=== PATIENT | female | born 1970 | race Caucasian/White ===

== ENCOUNTER 2023-01-06 20:23 | Inpatient (IN) | payer OTHER, SELFPAY ==
[2023-01-06 20:35] VITALS: BP 130/76; PULSE 111; RESP 20; TEMP 36.1; O2SAT 100
--- NOTE | 2023-01-06 22:21 | ED.GENADULT ---
HPI - General Adult General Date Seen: 01/06/23 Chief complaint: Urogenital Problems, Female Stated complaint: uti says she can't urinate Time Seen by Provider: 01/06/23 20:24 Source: patient Mode of arrival: ambulatory Limitations: no limitations History of Present Illness HPI narrative: Patient is a 52-year-old morbidly obese woman with CKD, diabetes, presenting to the emergency department for urinary incontinence. She states she is diagnosed with the UTI about a week ago and started on antibiotic. Since then she has been unable to urinate other than occasional urinary spasms that would cause her to be incontinent. She drove here on her scooter walk up miles away because she is too weak to get off the scooter. She states she normally walks around with her walker while the past couple days he has been feeling weaker and weaker. It took for male staff members to help her to her bed in the emergency department. She denies fevers, chest pain, shortness of breath, abdominal pain. Does states she is having chills. Denies headache. Related Data Allergies Allergy/AdvReac Type Severity Reaction Status Date / Time citalopram [From Celexa] Allergy Severe Verified 01/06/23 20:35 Review of Systems Status of ROS: Reports: 10 or more systems reviewed and unremarkable except as noted in History and below PFSH PFS Social History Smoking Status: Smoker, status unknown Second hand tobacco smoke exposure: No How often do you have a drink containing alcohol: never AUDIT-C Alcohol total score: 0 Non-prescribed substance use: denies use service: No Exam Const: Vital Signs, click to edit/add: Vital Signs - 24 hr 01/06/23 20:35 01/06/23 23:33 01/07/23 00:00 Temperature 97.0 F L Pulse Rate 104 H 102 H Pulse Rate [Left P ulse Oximeter] 111 H Respiratory Rate 20 Blood Pressure [Le ft Forearm] 130/76 Pulse Oximetry 100 97 98 Oxygen Delivery Me thod Room Air Course Vital Signs Vital signs: Initial Vital Signs Temperature 97.0 F L 01/06/23 20:35 Temperature Source Temporal Artery Scan 01/06/23 20:35 Pulse Rate 111 H 01/06/23 20:35 Pulse Rhythm Regular 01/06/23 20:35 Respiratory Rate 20 01/06/23 20:35 Blood Pressure 130/76 01/06/23 20:35 Blood Pressure Mean 94 01/06/23 20:35 Blood Pressure Position Sitting 01/06/23 20:35 Pulse Oximetry 100 01/06/23 20:35 Oxygen Delivery Method Room Air 01/06/23 20:35 Vital Signs Temperature 97.0 F L 01/06/23 20:35 Pulse Rate 111 H 01/06/23 20:35 Respiratory Rate 20 01/06/23 20:35 Blood Pressure 130/76 01/06/23 20:35 Pulse Oximetry 100 01/06/23 20:35 Oxygen Delivery Method Room Air 01/06/23 20:35 Temperature 97.0 F L 01/06/23 20:35 Pulse Rate 102 H 01/07/23 00:00 Respiratory Rate 20 01/06/23 20:35 Blood Pressure 130/76 01/06/23 20:35 Pulse Oximetry 98 01/07/23 00:00 Oxygen Delivery Method Room Air 01/06/23 20:35 Medications Administered Medications: Generic Name Dose Route Start Last Admin Trade Name Freq PRN Reason Stop Dose Admin Sodium Chloride 1,000 mls @ 1,000 mls/hr 01/06/23 23:15 01/06/23 23:37 0.9 % Sodium Chloride 1000 Ml IV 01/07/23 00:14 1,000 mls/hr .Q1H YAKELIN Administration Medical Decision Making MDM Narrative Medical decision making narrative: Patient is a 52-year-old female presenting to emergency department for urinary incontinence/retention in weakness. She appears to be having chills and she is tachycardic 0111. There is some concern for sepsis so I septic workup was ordered. This includes CBC, CMP, urinalysis, EKG, lactate, blood cultures, troponin. I was concerned about the patient's weakness due to only people talk to get her into the bed but when family arrived they state she has been functioning normally at home and she is able to get into her scooter the same as always. The reason she did not get in the Stefany come here is because her is not available and she is not believe her sister not strong enough to help her. They state they feel comfortable with her at home at this time. Lab work returned with a white count of 25, lactic acid 2.1 and creatinine of 2.8. Neutrophils are quite elevated 22.6. Reviewing her lab work from [facility] it shows on 10/01/2022 she had a creatinine of 1.87 white blood cell count 9.2. She so she currently has an acute kidney injury on top of her chronic kidney disease. This also concerned she could have infection concerning this large elevation in her white blood cell count. Urinalysis shows no signs of infection at this time and she had 3 small amount of output of the Rodriguez. Her skin does not appear to be overly excoriated or red does not really look like cellulitis to me. This patient could be bacteremic and she was given 1 L of normal saline at this time. We will do sepsis protocol for ideal body weight. Chest x-ray was ordered but she is not having any respiratory symptoms at this time. Procalcitonin is also ordered. She denies Zosyn and vancomycin ordered for broad-spectrum antibiotics. Patient is accepted by the [facility] hospitalist. Lab Data Labs: Lab Results 01/06/23 01/06/23 01/06/23 Range/Units 21:14 21:57 22:40 WBC 25.00 H (4.50-11.00) K/uL RBC 3.61 L (4.00-5.20) m/uL Hgb 10.1 L (12.0-16.0) gm/dL Hct 32.8 L (33.0-51.0) % MCV 91 (80-100) fL MCH 28 (26-34) pg MCHC 31 L (32-36) gm/dL RDW Coeff of Padmini 15.8 H (11.5-15.5) % Plt Count 446 H (140-440) K/uL Neut % (Auto) 90.4 H (42.0-72.0) % Lymph % (Auto) 2.3 L (20-44) % Tate % (Auto) 5.1 (0.0-11.0) % Eos % (Auto) 0.2 (0.0-7.0) % Baso % (Auto) 0.1 (0.0-3.0) % Neut # (Auto) 22.60 H (1.7-7.0) K/uL Lymph # (Auto) 0.60 L (0.90-2.90) K/uL Tate # (Auto) 1.30 H (0.00-0.90) K/UL Eos # (Auto) 0.10 (0.00-0.50) K/uL Baso # (Auto) 0.00 (0.00-0.30) K/uL Abs Immat Gran (auto) 0.50 H (0.00-0.30) K/uL Imm/Tot Granulo (auto) 1.9 % Sodium 137 (135-149) mmol/L Potassium 3.4 L (3.6-5.1) mmol/L Chloride 102 (96-114) mmol/L Carbon Dioxide 21 (20-32) mmol/L Anion Gap 14 (7-15) mEq/L BUN 52 H (7-30) mg/dL Creatinine 2.8 H (0.5-1.5) mg/dL Estimated GFR 20 ml/min Glucose 165 H (60-115) mg/dL Lactate 2.1 H (0.5-1.9) mmol/L Calcium 8.0 L (8.4-10.6) mg/dL Total Bilirubin 1.0 (0.1-1.5) mg/dL AST 61 H (12-35) U/L ALT 50 H (4-35) U/L Alkaline Phosphatase 136 (40-150) U/L Total Protein 8.3 (6.0-8.3) g/dL Albumin 3.7 (3.3-5.0) g/dL Procalcitonin (<0.50) ng/mL Urine Color (Yellow) Urine Appearance (Clear) Urine pH (5.0-8.5) Ur Specific [place] (1.000-1.030) Urine Protein (Negative) Urine Glucose (UA) (Negative) Urine Ketones (Negative) Urine Blood (Negative) Urine Nitrite (Negative) Urine Bilirubin (Negative) Urine Urobilinogen (0.2-1.0) Ur Leukocyte Esterase (Negative) Urine RBC (0-2) Urine WBC (0-5) Ur Squamous Epith Cells (None-Few) Urine Bacteria (None) SARS-CoV-2 (PCR) Negative SARS-CoV-2 (Negative) Influenza Type A (PCR) Negative PCR FLU A (Negative) Influenza Type B (PCR) Negative PCR FLU B (Negative) Lab Acknowledgement POC Troponin I 0.00 L (0.01-0.04) ng/ml 01/06/23 01/06/23 01/06/23 Range/Units 22:57 23:42 Unknown WBC (4.50-11.00) K/uL RBC (4.00-5.20) m/uL Hgb (12.0-16.0) gm/dL Hct (33.0-51.0) % MCV (80-100) fL MCH (26-34) pg MCHC (32-36) gm/dL RDW Coeff of Padmini (11.5-15.5) % Plt Count (140-440) K/uL Neut % (Auto) (42.0-72.0) % Lymph % (Auto) (20-44) % Tate % (Auto) (0.0-11.0) % Eos % (Auto) (0.0-7.0) % Baso % (Auto) (0.0-3.0) % Neut # (Auto) (1.7-7.0) K/uL Lymph # (Auto) (0.90-2.90) K/uL Tate # (Auto) (0.00-0.90) K/UL Eos # (Auto) (0.00-0.50) K/uL Baso # (Auto) (0.00-0.30) K/uL Abs Immat Gran (auto) (0.00-0.30) K/uL Imm/Tot Granulo (auto) % Sodium (135-149) mmol/L Potassium (3.6-5.1) mmol/L Chloride (96-114) mmol/L Carbon Dioxide (20-32) mmol/L Anion Gap (7-15) mEq/L BUN (7-30) mg/dL Creatinine (0.5-1.5) mg/dL Estimated GFR ml/min Glucose (60-115) mg/dL Lactate (0.5-1.9) mmol/L Calcium (8.4-10.6) mg/dL Total Bilirubin (0.1-1.5) mg/dL AST (12-35) U/L ALT (4-35) U/L Alkaline Phosphatase (40-150) U/L Total Protein (6.0-8.3) g/dL Albumin (3.3-5.0) g/dL Procalcitonin 0.96 H (<0.50) ng/mL Urine Color Yellow (Yellow) Urine Appearance Cloudy A (Clear) Urine pH 5.5 (5.0-8.5) Ur Specific [place] 1.020 (1.000-1.030) Urine Protein 2+ A (Negative) Urine Glucose (UA) Negative (Negative) Urine Ketones Negative (Negative) Urine Blood 2+ A (Negative) Urine Nitrite Negative (Negative) Urine Bilirubin Negative (Negative) Urine Urobilinogen 1.0 (0.2-1.0) Ur Leukocyte Esterase Negative (Negative) Urine RBC 0-2 (0-2) Urine WBC 0-2 (0-5) Ur Squamous Epith Cells Few (None-Few) Urine Bacteria Few A (None) SARS-CoV-2 (PCR) (Negative) Influenza Type A (PCR) (Negative) Influenza Type B (PCR) (Negative) Lab Acknowledgement Test Added POC Troponin I (0.01-0.04) ng/ml ECG Data Attestation: I personally reviewed and interpreted this ECG as follows: Interpretation: Sinus tachycardia with 107 beats per minute, right axis, normal intervals, no ST or T-wave abnormalities Discharge Plan Discharge Clinical Impression: RIOS (acute kidney injury), Neutrophilic leukocytosis Patient Disposition: Admitted As Observation Discharge Location: [facility] Condition: Stable
[2023-01-06 22:39] LABS: PCR FLU A Negative PCR FLU A (Negative); PCR FLU B Negative PCR FLU B (Negative)
[2023-01-06 22:40] LABS: SARS PCR* Negative SARS-CoV-2 (Negative)
[2023-01-06 22:58] LABS: Lactate* 2.1 mmol/L (0.5-1.9)
[2023-01-06 22:59] LABS: Basophils Percent Auto 0.1 % (0.0-3.0); Eosinophils Percent Auto 0.2 % (0.0-7.0); Hematocrit 32.8 % (33.0-51.0); Hemoglobin* 10.1 gm/dL (12.0-16.0); Immature Granulocytes Pct Auto 1.9 %; Lymphocytes Percent Auto 2.3 % (20-44); Mean Corpuscular HGB Conc 31 gm/dL (32-36); Mean Corpuscular Hemoglobin 28 pg (26-34); Mean Corpuscular Volume 91 fL (80-100); Monocytes Percent Auto 5.1 % (0.0-11.0); Neutrophils Percent Auto 90.4 % (42.0-72.0); Platelet Count* 446 K/uL (140-440); RDW Coefficient of Variation % 15.8 % (11.5-15.5); Red Blood Count 3.61 m/uL (4.00-5.20)
[2023-01-06 23:01] LABS: Slide Review Reflex No
[2023-01-06 23:05] LABS: Appearance Urine Cloudy (Clear); Bilirubin Urine Negative (Negative); Blood Urine 2+ (Negative); Color Urine Yellow (Yellow); Glucose Urine Negative (Negative); Ketones Urine Negative (Negative); Leukocyte Esterase Urine Negative (Negative); Nitrite Urine Negative (Negative); Protein Urine 2+ (Negative); pH Urine 5.5 (5.0-8.5)
[2023-01-06 23:14] LABS: Albumin* 3.7 g/dL (3.3-5.0); Chloride* 102 mmol/L (96-114); Sodium* 137 mmol/L (135-149)
[2023-01-06 23:15] LABS: Potassium* 3.4 mmol/L (3.6-5.1)
[2023-01-06 23:17] LABS: Alanine Aminotransferase* 50 U/L (4-35); Alkaline Phosphatase* 136 U/L (40-150); Anion Gap 14 mEq/L (7-15); Aspartate Amino Transferase* 61 U/L (12-35); Blood Urea Nitrogen* 52 mg/dL (7-30); Carbon Dioxide* 21 mmol/L (20-32); Creatinine* 2.8 mg/dL (0.5-1.5); Estimated Glomerular Filt Rate 20 ml/min; Glucose* 165 mg/dL (60-115); Total Protein* 8.3 g/dL (6.0-8.3)
[2023-01-06 23:17] LABS: Bacteria Urine Few; RBC Urine 0-2 (0-2); Squamous Epithelial Cell Urine Few (None-Few); WBC Urine 0-2 (0-5)
[2023-01-06 23:33] VITALS: PULSE 104; O2SAT 97
--- NOTE | 2023-01-06 23:33 | CRLHL7_ITS ---
For Patients: As a result of the Cures Act, medical imaging exams and procedure reports are released immediately into your electronic medical record. You may view this report before your referring provider. If you have questions, please contact your health care provider. INDICATION: Leukocytosis and tachycardia. COMPARISON: None. FINDINGS/IMPRESSION: Semi-upright portable AP chest radiographs. Evaluation is limited by shallow inspiration, large body habitus, and portable AP technique. Lungs appear grossly clear and no definite pulmonary consolidation or other acute intrathoracic abnormalities are seen. No apparent pleural effusions. Likely normal heart size, allowing for AP technique. No acute osseous findings. Dictated by Jacob Medina MD @ 01/07/2023 12:51:28 AM Dictated by: Jacob Medina MD @ 01/07/2023 00:51:52 (Electronically Signed)
[2023-01-06] MEDS: 0.9 % SODIUM CHLORIDE 1000 ml 1,000 ML IV (23:37)
[2023-01-07] VITALS (7 sets, daily range): BP systolic 99–157; BP diastolic 48–56; PULSE 80–102; RESP 16–26; TEMP 36–36.6; O2SAT 91–98; BMI 95.5
[2023-01-07 00:10] LABS: Procalcitonin* 0.96 ng/mL (<0.50)
[2023-01-07 00:26] LABS: C Reactive Protein* 24.1 mg/dL (0.5-1.0)
[2023-01-07] MEDS: PIPERACILLIN/TAZOBACTAM 3.375 GM in 0.9 % SODIUM CHLORIDE Mini-bag 100 ML IVPB ×4 (00:35→17:58)
--- NOTE | 2023-01-07 03:20 | W.PM.THH&P_ITS ---
Telehealth- H&P: HPI History of Present Illness Date Seen: 01/07/23 Chief complaint: uti says she can't urinate Narrative: Antonina Elizabeth is seen as an Interactive Telehealth visit. Antonina Elizabeth is a 52 year old male who is Seen earlier at [facility] with the assistance of nursing staff. She has been admitted through the emergency room. Her is there for the interview but is not present during the physical exam. Antonina tells me she started having urinary retention and urinary symptoms about 10 to 14 days ago. She ultimately got in touch with her physician and had a UA which showed a urinary tract infection. She was placed on Keflex 500 mg twice daily and continues to take these. She has not been having problems with feeling like she needs to go and then has bladder spasms where she urinates. She states this do not seem to be improving with the antibiotic. She is also becoming increasingly weak. Her family urged her to come in. Patient rolled her scooter approximately 2 miles into the hospital. She was evaluated in the emergency room. There was concern for possible sepsis she was found to have an elevated white count elevated lactic acid. She was treated with broad-spectrum antibiotics in the form of vancomycin and Zosyn. Workup in the emergency room did not Holt 5 is infectious source. Patient's past medical history includes super morbid obesity, history of chronic kidney disease stage III, diabetes. She is now been admitted to the floor for further evaluation and treatment. Patient denies any back pain denies any numbness and tingling in her legs denies any other symptoms. She denies a headache she denies nausea vomiting chest pain shortness of breath cough. She states she has pain in by her buttock area from excoriation from the urine. She otherwise does not have any other complaints. Review of Systems Narrative: A complete review of systems was performed and positive pertinence negatives per HPI [facility] Medical History (Updated 01/07/23 @ 03:01 by Gurinder Blankenship DO) FH: RADHA-BSO (total abdominal hysterectomy and bilateral salpingo-oophorectomy) ?Z84.2 - Family history of other diseases of the genitourinary system (ICD- 10) Uterine cancer ?C55 - Malignant neoplasm of uterus, part unspecified (ICD-10) OKSANA (obstructive sleep apnea) ?G47.33 - Obstructive sleep apnea (adult) (pediatric) (ICD-10) Diabetes ?E11.9 - Type 2 diabetes mellitus without complications (ICD-10) Morbid obesity with body mass index (BMI) greater than or equal to 50 ?E66.01 - Morbid (severe) obesity due to excess calories (ICD-10) Major depression ?F32.9 - Major depressive disorder, single episode, unspecified (ICD-10) Hypothyroid ?E03.9 - Hypothyroidism, unspecified (ICD-10) HTN (hypertension) ?I10 - Essential (primary) hypertension (ICD-10) Endometrial cancer ?C54.1 - Malignant neoplasm of endometrium (ICD-10) CKD (chronic kidney disease) stage 3, GFR 30-59 ml/min ?N18.30 - Chronic kidney disease, stage 3 unspecified (ICD-10) Anxiety ?F41.9 - Anxiety disorder, unspecified (ICD-10) Surgical History (Updated 01/07/23 @ 03:01 by Gurinder Blankenship DO) History of tonsillectomy ?Z90.89 - Acquired absence of other organs (ICD-10) History of cholecystectomy ?Z90.49 - Acquired absence of other specified parts of digestive tract (ICD- 10) Social History Smoking Status: Smoker, status unknown Second hand tobacco smoke exposure: No How often do you have a drink containing alcohol: never AUDIT-C Alcohol total score: 0 Non-prescribed substance use: denies use service: No Meds Home Medications and Allergies Allergies Allergy/AdvReac Type Severity Reaction Status Date / Time citalopram [From Celexa] Allergy Severe Verified 01/06/23 20:35 Exam Narrative Exam Narrative: Physical Exam GENERAL: ?vital signs reviewed, well developed and nourished, in no distress Patient is lying in bed she does not appear to be in acute distress. She answers questions appropriately. HEENT: pupils are equal round and reactive to light, extraocular movements are grossly within normal limits and oral mucosa is moist. NECK: Supple without lymphadenopathy or thyromegaly according to nursing staff examination observation HEART: Regular rate and rhythm without any rubs, murmurs, or gallops. LUNGS: Clear to auscultation bilaterally with good air movement throughout ABDOMEN: Observation from nurse assisted exam, abdomen appears soft, nontender, and nondistended with Positive bowel sounds noted. Abdomen is super morbid obese. Difficult to examine and multiple pulm large skin folds. There does not appear to be any overt cellulitis in her pannus. EXTREMITIES: Strength and sensation is observed to be grossly within normal limits in the upper and lower extremities.? No focal strength deficit is observed. SKIN:? Observed warm and dry with color normal. Patient was examined with the assistance of 3 nurses. Complaining of pain in her buttock area this was evaluated and appeared to show erythema it is hot to touch per nursing. There is skin excoriation in the area. Const Vital Signs, click to edit/add: Vital Signs - 24 hr 01/06/23 20:35 01/06/23 23:33 01/07/23 00:00 Temperature 97.0 F L Pulse Rate 104 H 102 H Pulse Rate [Left Pulse Oximeter] 111 H Respiratory Rate 20 Blood Pressure [Left Forearm] 130/76 Pulse Oximetry 100 97 98 Oxygen Delivery Method Room Air Hospitalist - H&P: Result Labs Labs: Short CBC 01/06/23 Range/Units 22:40 WBC 25.00 H (4.50-11.00) K/uL Hgb 10.1 L (12.0-16.0) gm/dL Hct 32.8 L (33.0-51.0) % Plt Count 446 H (140-440) K/uL BMP 01/06/23 22:40 Sodium 137 Potassium 3.4 L Chloride 102 Carbon Dioxide 21 BUN 52 H Creatinine 2.8 H Glucose 165 H Calcium 8.0 L Liver Function 01/06/23 Range/Units 22:40 Total Bilirubin 1.0 (0.1-1.5) mg/dL AST 61 H (12-35) U/L ALT 50 H (4-35) U/L Alkaline Phosphatase 136 (40-150) U/L Albumin 3.7 (3.3-5.0) g/dL Urine 01/06/23 Range/Units 22:57 Urine Color Yellow (Yellow) Urine Appearance Cloudy A (Clear) Urine pH 5.5 (5.0-8.5) Ur Specific [place] 1.020 (1.000-1.030) Urine Protein 2+ A (Negative) Urine Glucose (UA) Negative (Negative) Assessment and Plan Assessment and plan (1) Sepsis: Status: Acute (2) Urinary incontinence: Status: Acute (3) Morbid obesity with body mass index (BMI) greater than or equal to 50: Status: Acute (4) Anemia: Status: Acute (5) Elevated LFTs: Status: Acute (6) Hypokalemia: Status: Acute (7) OKSANA (obstructive sleep apnea): Status: Acute (8) Diabetes: Status: Acute (9) HTN (hypertension): Status: Acute (10) CKD (chronic kidney disease) stage 3, GFR 30-59 ml/min: Status: Chronic (11) RIOS (acute kidney injury): Status: Acute Plan Sepsis?initial workup did not seem to show a source of sepsis however on physical exam in her buttock area under the skin folds appears to have erythematous warm area which certainly could be a cellulitis very difficult to tell if she has chronic skin changes in the area. Nevertheless I do think with her elevated lactic acid white blood cell count she needs broad-spectrum antibiotics. Agree with Zosyn and vancomycin. These have been ordered sepsis protocol has been ordered. Will have pharmacy dose her vancomycin. Will continue to follow her clinically. Urinary incontinence?this appears to have been going on at least 10 days possibly 2 weeks. Unclear if it is related to infection she appears to be growing a Klebsiella species. Has been treated with cephalexin. For tonight she has a Rodriguez catheter in place she is urinating. Will place her on normal saline at 100 mL/h. If her urinary difficulties continue may benefit from a CT scan of the abdomen and pelvis. Would like to try to hold off to see if her creatinine improves contrast may be needed. Super morbid obesity?patient significant high risk for decompensation and problems secondary to morbid obesity. Certainly has chronic skin changes and this is affecting her health. Encourage exercise weight loss. Anemia?no signs of active bleeding this can be followed up as an outpatient. Elevated LFTs?significance is unclear. Abdomen is not tender on exam. Will plan to recheck hepatic function studies again in the morning if still elevated further workup with either ultrasound versus CT of the abdomen if technically possible. Hypokalemia?will replace per protocol. Obstructive sleep apnea?CPAP as at home. Diabetes?unclear what her home medications are these will need to be clarified with pharmacy. Blood sugar was not markedly elevated. Will place on low level sliding scale insulin. Hypertension?will need to clarify her home medications. Chronic kidney disease?appears to have acute kidney injury as well baseline creatinine appears to be around 1.7 creatinine currently 2.5. Try to avoid nep hrotoxic medications i.e. contrast will continue to follow see how she does DVT prophylaxis will use Lovenox CODE STATUS was discussed on admission she wishes to be a DNR/DNI. This was discussed with her present. Telehealth: Statement Statement Telehealth Visit: Today's History and Physical is provided via interactive telehealth by Gurinder Blankenship DO.? Patient is located at [facility].? Provider is located at [facility].? Nursing staff assisted with the patient's exam. The visit being done today meets criteria for a telehealth visit and the patient or patient?s parent/guardian is aware the visit is a telehealth visit. Camera Start Time: 02:01 Camera End Time: 02:34
[2023-01-07 05:26] LABS: Lactate* 1.2 mmol/L (0.5-1.9)
[2023-01-07 05:27] LABS: Basophils Percent Auto 0.1 % (0.0-3.0); Eosinophils Percent Auto 0.1 % (0.0-7.0); Hematocrit 30.5 % (33.0-51.0); Hemoglobin* 9.4 gm/dL (12.0-16.0); Immature Granulocytes Pct Auto 0.6 %; Lymphocytes Percent Auto 3.4 % (20-44); Mean Corpuscular HGB Conc 31 gm/dL (32-36); Mean Corpuscular Hemoglobin 28 pg (26-34); Mean Corpuscular Volume 90 fL (80-100); Neutrophils Percent Auto 89.8 % (42.0-72.0); Platelet Count* 426 K/uL (140-440); RDW Coefficient of Variation % 15.7 % (11.5-15.5); Red Blood Count 3.39 m/uL (4.00-5.20)
[2023-01-07 05:29] LABS: Slide Review Reflex Yes
[2023-01-07] MEDS: MELATONIN 3 MG TABLET PO ×2 (05:37→21:13)
[2023-01-07] MEDS: ACETAMINOPHEN 325 MG TABLET PO ×3 (05:37→19:02)
[2023-01-07 05:41] LABS: Slide Review Acceptable Review (Acceptable)
[2023-01-07 05:42] LABS: Albumin* 3.3 g/dL (3.3-5.0); Chloride* 103 mmol/L (96-114)
[2023-01-07 05:43] LABS: Chloride* 103 mmol/L (96-114); Potassium* 3.1 mmol/L (3.6-5.1); Sodium* 136 mmol/L (135-149); Sodium* 137 mmol/L (135-149)
[2023-01-07 05:45] LABS: Anion Gap 12 mEq/L (7-15); Aspartate Amino Transferase* 75 U/L (12-35); Bilirubin Direct* 0.7 mg/dL (0.0-0.5); Bilirubin Total* 1.2 mg/dL (0.1-1.5); Carbon Dioxide* 21 mmol/L (20-32); Creatinine* 2.8 mg/dL (0.5-1.5); Est. Creatinine Clearance* 16.88; Estimated Glomerular Filt Rate 20 ml/min; Total Protein* 7.7 g/dL (6.0-8.3)
[2023-01-07 05:46] LABS: Alanine Aminotransferase* 50 U/L (4-35); Alkaline Phosphatase* 138 U/L (40-150); Blood Urea Nitrogen* 48 mg/dL (7-30); Calcium* 7.6 mg/dL (8.4-10.6); Glucose* 190 mg/dL (60-115)
[2023-01-07 05:47] LABS: Anion Gap 13 mEq/L (7-15); Carbon Dioxide* 21 mmol/L (20-32)
[2023-01-07 06:02] LABS: Procalcitonin* 2.41 ng/mL (<0.50)
--- NOTE | 2023-01-07 06:27 | PC.NURSE ---
End of Shift: Pt arrived to Med Surg unit at 0110 via ED admission with chief c/o weakness following outpatient tx for a UTI. WBC elevated. Redness, yeast, and strong odor noted under panus fold. Soiled wash cloth turned brown and sopping wet found in right lower fold, removed and discarded. Skin breakdown and redness noted. Pt reports washes and changes cloths out weekly. RN washed and dried each fold, removed all yeast and tucked dry cloths into them. Pt reported pain 8/10 on buttocks area. Bottom noted to have large area of maceration, warmth and skin breakdown covering bottom. Pt moved to bariatric, therapeutic mattress from 256 to CCU2. Zosyn and vanco IV ordered and administered. Pt reported nausea around 0540, resolved shortly after. Pt has CPAP from home, utilizing at night. Pain rated 7/10 in back, knees and folds. Tylenol administered as well as melatonin for sleep. O2 98% on RA. Pt lives at home with her . at bedside until HS. Rodriguez catheter remains in place, patent and draining. LS CTAB.
[2023-01-07 08:19] LABS: Magnesium* 1.7 mg/dL (1.5-2.6)
[2023-01-07 08:40] LABS: C Reactive Protein* 24.4 mg/dL (0.5-1.0)
[2023-01-07] MEDS: POTASSIUM BICARB 25 MEQ EFFERVESCENT TAB PO ×2 (09:24→11:47)
[2023-01-07] MEDS: 0.9 % SODIUM CHLORIDE 1000 ml 1,000 ML 125 ML IV ×2 (09:25→19:02)
[2023-01-07] MEDS: SODIUM CHLORIDE 0.9 % (FLUSH) 10 ML SYRINGE 5 ML IVF ×2 (09:31→21:13)
--- NOTE | 2023-01-07 13:20 | P.IMPN_ITS ---
Progress Note: A&P Assessment and plan (1) Sepsis: Problem details: - unclear of etiology, possibly skin with panniculitis, sherrie dermatitis, and possible cellulitis - with WBC elevated at 29,000 and CRP at 24, there is still concerned that I may not have yet identified the source of her presentation. Should additional diagnostic studies be required, such as CT scan of chest, abdomen, pelvis, the patient will need to be transferred to a tertiary care facility that is capable of performing this additional diagnostic study on this patient. Our CT scan has a weight limit of 450 lb. Her current weight is 490 lb. - for now we are covering her with IV vancomycin and IV piperacillin with tazobactam. Various cultures are for the time being negative and still pending. Status: Acute (2) Urinary incontinence: Problem details: - reportedly acute, since recent UTI, seemingly caused by bladder spasms. Does use oxybutynin at baseline. UA does not suggest UTI. Status: Acute (3) Morbid obesity with body mass index (BMI) greater than or equal to 50: Problem details: - 01/07/23: wt. 221.7 kg, height 152.4 cm, BMI 95.5 kg/m2 Status: Acute (4) Anemia: Problem details: - 01/07/23: Hg 9.4, with no overt blood loss Status: Acute (5) Elevated LFTs: Problem details: - T Bili nl 1.2, D Bili elev 0.7, AST elev 75, ALT elev 50, Alk phos nl 138. Alb nl 3.3, PT is pending Status: Acute (6) Hypokalemia: Problem details: - stop HCTZ - replace and monitor K+ and Mg++ as warranted for now Status: Acute (7) OKSANA (obstructive sleep apnea): Problem details: - continue with her baseline use of CPAP when asleep Status: Acute (8) Diabetes: Problem details: - ordinarily utilizes only pioglitazone - Hold pioglitazone - SS aspart insulin for now Status: Acute (9) HTN (hypertension): Problem details: - continue losartan - hold HCTZ Status: Acute (10) CKD (chronic kidney disease) stage 3, GFR 30-59 ml/min: Problem details: - current Cr 2.8, e-CrCl 16, eGFR 20 Status: Chronic (11) RIOS (acute kidney injury): Problem details: - current Cr 2.8, e-CrCl 16, eGFR 20 Status: Acute Plan 1. Reviewed impression with patient and her , Piyush. 2. Patient makes it very clear that should she be unable to speak on her own behalf that fills to make healthcare decisions on her behalf. 3. DNR DNI resuscitation status. 4. Reviewed with the patient and her the possibility that should she warrant additional radiographic testing such as CT scan of chest, abdomen, and pelvis, that we may need to consider transfer to another facility. At the moment she states she prefers to stay here however if that is warranted she would be willing to. 5. Continue with plans as specified above. Time Spent With Patient Total time spent: 60 minutes Subjective Date Seen: 01/07/23 Interval history: Hospital day 1. History of present illness: ?Antonina Elizabeth is seen as an Interactive Telehealth visit. Antonina Elizabeth is a 52 year old male who is Seen earlier at [facility] with the assistance of nursing staff. She has been admitted through the emergency room. Her is there for the interview but is not present during the physical exam. Antonina tells me she started having urinary retention and urinary symptoms about 10 to 14 days ago. She ultimately got in touch with her physician and had a UA which showed a urinary tract infection. She was placed on Keflex 500 mg twice daily and continues to take these. She has not been having problems with feeling like she needs to go and then has bladder spasms where she urinates. She states this do not seem to be improving with the antibiotic. She is also becoming increasingly weak. Her family urged her to come in. Patient rolled her scooter approximately 2 miles into the hospital. She was evaluated in the emergency room. There was concern for possible sepsis she was found to have an elevated white count elevated lactic acid. She was treated with broad-spectrum antibiotics in the form of vancomycin and Zosyn. Workup in the emergency room did not Carroll 5 is infectious source. Patient's past medical history includes super morbid obesity, history of chronic kidney disease stage III, diabetes. She is now been admitted to the floor for further evaluation and treatment. Patient denies any back pain denies any numbness and tingling in her legs denies any other symptoms. She denies a headache she denies nausea vomiting chest pain shortness of breath cough. She states she has pain in by her buttock area from excoriation from the urine. She otherwise does not have any other complaints. I visit with patient and her , Piyush, today. Verbal satisfied with current interventions and results. Exam Narrative: Exam Narrative: Examined patient in her hospital room. Patient smells unkempt and there is a strong odor of Sherrie skin infection. Patient is on a bariatric bed with alternating mattress. She has her CPAP machine on and appears comfortable. Vision and hearing appear grossly normal. Alert, oriented to self, place, time, situation. When awake she engages in conversation hesitatingly. Sometimes looks to her for answers. Lungs are clear. Heart tones with regular rhythm. Abdomen is obese otherwise soft and nontender. No rebound or guarding. At the moment it is taking 2-4 people to roller from side to side in order to examine her and clean her. Skin of lower extremities is dry and scaly from chronic changes, with dark discoloration. Abdominal pannus with intertriginous erythema and superficial skin excoriations with lateral aspects bilaterally warm to touch. She appears to have a cellulitis in these areas. Also has superficial skin abrasions a few will under buttock, which patient states is new to her. No focal motor neurologic deficits. Does have generalized weakness in upper and lower extremities. Ordinarily able to pivot transfer at home, not able to do so here at this time. Const: Vital Signs, click to edit/add: Vital Signs - 24 hr 01/06/23 20:35 01/06/23 23:33 01/07/23 00:00 Temperature 97.0 F L Pulse Rate 104 H 102 H Pulse Rate [Left P ulse Oximeter] 111 H Pulse Rate [Left] Respiratory Rate 20 Blood Pressure [Le ft Forearm] 130/76 Blood Pressure [Ri ght Forearm] Blood Pressure [Ri ght Radial Artery] Pulse Oximetry 100 97 98 Oxygen Delivery Me thod Room Air 01/07/23 04:15 01/07/23 04:15 01/07/23 07:28 Temperature 97.0 F L 97.5 F L Pulse Rate Pulse Rate [Left P ulse Oximeter] 98 Pulse Rate [Left] 101 H Respiratory Rate 20 20 26 H Blood Pressure [Le ft Forearm] Blood Pressure [Ri ght Forearm] 109/56 L Blood Pressure [Ri ght Radial Artery] 157/52 H Pulse Oximetry 98 98 97 Oxygen Delivery Me thod Room Air Room Air Room Air 01/07/23 07:28 01/07/23 11:49 Temperature 96.8 F L Pulse Rate Pulse Rate [Left P ulse Oximeter] 98 80 Pulse Rate [Left] Respiratory Rate 26 H 16 Blood Pressure [Le ft Forearm] Blood Pressure [Ri ght Forearm] 104/53 L Blood Pressure [Ri ght Radial Artery] Pulse Oximetry 92 Oxygen Delivery Me thod Room Air Documenting provider has reviewed patient's vital signs: yes Labs Labs: Laboratory Results - last 24 hr 01/06/23 01/06/23 01/06/23 21:14 21:57 22:40 WBC 25.00 H RBC 3.61 L Hgb 10.1 L Hct 32.8 L MCV 91 MCH 28 MCHC 31 L RDW Coeff of Padmini 15.8 H Plt Count 446 H Neut % (Auto) 90.4 H Lymph % (Auto) 2.3 L Aiken % (Auto) 5.1 Eos % (Auto) 0.2 Baso % (Auto) 0.1 Neut # (Auto) 22.60 H Lymph # (Auto) 0.60 L Aiken # (Auto) 1.30 H Eos # (Auto) 0.10 Baso # (Auto) 0.00 Abs Immat Gran (auto) 0.50 H Imm/Tot Granulo (auto) 1.9 Diff Slide Review Sodium 137 Potassium 3.4 L Chloride 102 Carbon Dioxide 21 Anion Gap 14 BUN 52 H Creatinine 2.8 H Estimated Creat Clear Estimated GFR 20 Glucose 165 H Lactate 2.1 H Calcium 8.0 L Magnesium Total Bilirubin 1.0 Direct Bilirubin AST 61 H ALT 50 H Alkaline Phosphatase 136 C-Reactive Protein 24.1 H Total Protein 8.3 Albumin 3.7 Procalcitonin Urine Color Urine Appearance Urine pH Ur Specific [place] Urine Protein Urine Glucose (UA) Urine Ketones Urine Blood Urine Nitrite Urine Bilirubin Urine Urobilinogen Ur Leukocyte Esterase Urine RBC Urine WBC Ur Squamous Epith Cells Urine Bacteria SARS-CoV-2 (PCR) Negative SARS-CoV-2 Influenza Type A (PCR) Negative PCR FLU A Influenza Type B (PCR) Negative PCR FLU B Lab Acknowledgement POC Troponin I 0.00 L 01/06/23 01/06/23 01/06/23 22:57 23:42 Unknown WBC RBC Hgb Hct MCV MCH MCHC RDW Coeff of Padmini Plt Count Neut % (Auto) Lymph % (Auto) Aiken % (Auto) Eos % (Auto) Baso % (Auto) Neut # (Auto) Lymph # (Auto) Aiken # (Auto) Eos # (Auto) Baso # (Auto) Abs Immat Gran (auto) Imm/Tot Granulo (auto) Diff Slide Review Sodium Potassium Chloride Carbon Dioxide Anion Gap BUN Creatinine Estimated Creat Clear Estimated GFR Glucose Lactate Calcium Magnesium Total Bilirubin Direct Bilirubin AST ALT Alkaline Phosphatase C-Reactive Protein Total Protein Albumin Procalcitonin 0.96 H Urine Color Yellow Urine Appearance Cloudy A Urine pH 5.5 Ur Specific [place] 1.020 Urine Protein 2+ A Urine Glucose (UA) Negative Urine Ketones Negative Urine Blood 2+ A Urine Nitrite Negative Urine Bilirubin Negative Urine Urobilinogen 1.0 Ur Leukocyte Esterase Negative Urine RBC 0-2 Urine WBC 0-2 Ur Squamous Epith Cells Few Urine Bacteria Few A SARS-CoV-2 (PCR) Influenza Type A (PCR) Influenza Type B (PCR) Lab Acknowledgement Test Added POC Troponin I 01/07/23 01/07/23 01/07/23 00:05 05:15 05:15 WBC 29.30 H* RBC 3.39 L Hgb 9.4 L Hct 30.5 L MCV 90 MCH 28 MCHC 31 L RDW Coeff of Padmini 15.7 H Plt Count 426 Neut % (Auto) 89.8 H Lymph % (Auto) 3.4 L Aiken % (Auto) 6.0 Eos % (Auto) 0.1 Baso % (Auto) 0.1 Neut # (Auto) 26.30 H Lymph # (Auto) 1.00 Aiken # (Auto) 1.80 H Eos # (Auto) 0.00 Baso # (Auto) 0.00 Abs Immat Gran (auto) 0.20 Imm/Tot Granulo (auto) 0.6 Diff Slide Review Acceptable Review Sodium 136 137 Potassium 3.1 L Chloride Carbon Dioxide Anion Gap BUN Creatinine Estimated Creat Clear Estimated GFR Glucose Lactate Calcium Magnesium Total Bilirubin Direct Bilirubin AST ALT Alkaline Phosphatase C-Reactive Protein Total Protein Albumin Procalcitonin Urine Color Urine Appearance Urine pH Ur Specific [place] Urine Protein Urine Glucose (UA) Urine Ketones Urine Blood Urine Nitrite Urine Bilirubin Urine Urobilinogen Ur Leukocyte Esterase Urine RBC Urine WBC Ur Squamous Epith Cells Urine Bacteria SARS-CoV-2 (PCR) Influenza Type A (PCR) Influenza Type B (PCR) Lab Acknowledgement Test Added POC Troponin I 01/07/23 01/07/23 01/07/23 05:15 05:15 05:15 WBC RBC Hgb Hct MCV MCH MCHC RDW Coeff of Padmini Plt Count Neut % (Auto) Lymph % (Auto) Aiken % (Auto) Eos % (Auto) Baso % (Auto) Neut # (Auto) Lymph # (Auto) Aiken # (Auto) Eos # (Auto) Baso # (Auto) Abs Immat Gran (auto) Imm/Tot Granulo (auto) Diff Slide Review Sodium Potassium 3.1 L Chloride 103 103 Carbon Dioxide 21 21 Anion Gap 12 BUN Creatinine Estimated Creat Clear Estimated GFR Glucose Lactate Calcium Magnesium Total Bilirubin Direct Bilirubin AST ALT Alkaline Phosphatase C-Reactive Protein Total Protein Albumin Procalcitonin Urine Color Urine Appearance Urine pH Ur Specific [place] Urine Protein Urine Glucose (UA) Urine Ketones Urine Blood Urine Nitrite Urine Bilirubin Urine Urobilinogen Ur Leukocyte Esterase Urine RBC Urine WBC Ur Squamous Epith Cells Urine Bacteria SARS-CoV-2 (PCR) Influenza Type A (PCR) Influenza Type B (PCR) Lab Acknowledgement POC Troponin I 01/07/23 01/07/23 05:15 07:50 WBC RBC Hgb Hct MCV MCH MCHC RDW Coeff of Padmini Plt Count Neut % (Auto) Lymph % (Auto) Aiken % (Auto) Eos % (Auto) Baso % (Auto) Neut # (Auto) Lymph # (Auto) Aiken # (Auto) Eos # (Auto) Baso # (Auto) Abs Immat Gran (auto) Imm/Tot Granulo (auto) Diff Slide Review Sodium Potassium Chloride Carbon Dioxide Anion Gap 13 BUN 48 H Creatinine 2.8 H Estimated Creat Clear 16.88 Estimated GFR 20 Glucose 190 H Lactate 1.2 Calcium 7.6 L Magnesium 1.7 Total Bilirubin 1.2 Direct Bilirubin 0.7 H AST 75 H ALT 50 H Alkaline Phosphatase 138 C-Reactive Protein 24.4 H Total Protein 7.7 Albumin 3.3 Procalcitonin 2.41 H Urine Color Urine Appearance Urine pH Ur Specific [place] Urine Protein Urine Glucose (UA) Urine Ketones Urine Blood Urine Nitrite Urine Bilirubin Urine Urobilinogen Ur Leukocyte Esterase Urine RBC Urine WBC Ur Squamous Epith Cells Urine Bacteria SARS-CoV-2 (PCR) Influenza Type A (PCR) Influenza Type B (PCR) Lab Acknowledgement Test Added POC Troponin I
[2023-01-07] MEDS: OMEPRAZOLE 20 MG CAPSULE DR PO (13:38)
[2023-01-07] MEDS: oxyBUTYnin chloride 5 MG TABLET PO ×2 (13:38→21:13)
[2023-01-07] MEDS: ONDANSETRON ODT 4 MG TAB PO (13:40)
[2023-01-07 13:55] LABS: Potassium* 4.9 mmol/L (3.6-5.1)
--- NOTE | 2023-01-07 14:40 | PC.NURSE ---
End of Shift: Patient pleasant and cooperative. Patient vitally stable, lungs clear, BS WNL, IV running NS at 125, kendall intact and draining. Patient denies pain but reports bottom irritation. Tylenol given once and zophran given once for nausea. Pannus fold replaced with towelets. Patient on and off sleeping all morning with cpap on. Patient's visiting with patient. Patient has not eating anything this shift but does drink some water. Blood sugars 167 and 132.
[2023-01-07 15:45] LABS: HCO3 VBG 23 mmol/L (21-28); PCO2 VBG 33 mmHG (40-50); PO2 VBG 62.2 mmHG (25-47); pH VBG 7.441 (7.32-7.43)
[2023-01-07] MEDS: SIMVASTATIN 10 MG TABLET 5 MG PO (18:02)
[2023-01-07] MEDS: ENOXAPARIN 40 MG/0.4 ML INJ SUBCUT (21:13)
[2023-01-07] MEDS: NYSTATIN POWDER 1 APPLIC TOPICAL (21:13)
--- NOTE | 2023-01-07 22:14 | PC.NURSE ---
End of Shift: Patient is alert and orientated... decreased appetite only had cottage cheese for dinner and a popsicle. The patient initially reported no pain.. later in the evening reported 4/10 pain in her back.. PRN Tylenol was given. She was repositioned Q2 or per patient request.. she had a hard time getting comfortable this shift she explained I am wondering why I could be comfortable all day, but not now. I offered pillows for repositioning as well as elevating her legs to relieve pressure off her back. New IV was placed this shift in her R hand. Infusing ABX and normal saline @ 125 throughout the shift. Skin care was completed in her pannus area, crease below her knee, groin and to BLE. She was very sensitive during this as it is reddened and sections have opened sores. With assistance I washed them with soap and dried them thoroughly and applied nystatin as well as inner dry. The remaining inner dry is in her room for future use. Rodriguez remains in place, patent and draining cloudy light fabiano urine. Patient sleeps with CPAP at night.. currently in place. Per the patients request I gave PRN melatonin. R inner LE has scaly dryness/ discoloration washed most of it off but some still remains.. Lotion was also applied to BLE. Was unable to have the patient successfully turn on her side this shift.. she stated she could not do it. Patient had many family members visit this afternoon as well as her . Call light within reach, will make needs known. OPAL FERNÁNDEZ BSN
[2023-01-08] VITALS (8 sets, daily range): BP systolic 95–122; BP diastolic 53–66; PULSE 76–92; RESP 18–20; TEMP 36.4–36.7; O2SAT 91–97; BMI 93.8
[2023-01-08] MEDS: PIPERACILLIN/TAZOBACTAM 3.375 GM in 0.9 % SODIUM CHLORIDE Mini-bag 100 ML IVPB ×4 (00:14→19:30)
[2023-01-08] MEDS: 0.9 % SODIUM CHLORIDE 1000 ml 1,000 ML 125 ML IV (05:21)
--- NOTE | 2023-01-08 06:50 | PC.NURSE ---
Shift note: Pt has been using CPAP throughout the night. Turn and reposition upon request. Rodriguez patent, draining deep fabiano colored urine. Denied pain. Groin area cleaned. Pt had adequate sleep. 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 informed through [facility] and ordered to continue treatment.
[2023-01-08 07:08] LABS: Basophils Percent Auto 0.1 % (0.0-3.0); Eosinophils Percent Auto 0.5 % (0.0-7.0); Hematocrit 29.7 % (33.0-51.0); Hemoglobin* 8.7 gm/dL (12.0-16.0); Immature Granulocytes Pct Auto 1.1 %; Lymphocytes Percent Auto 4.1 % (20-44); Mean Corpuscular HGB Conc 29 gm/dL (32-36); Mean Corpuscular Hemoglobin 27 pg (26-34); Mean Corpuscular Volume 93 fL (80-100); Monocytes Percent Auto 3.6 % (0.0-11.0); Neutrophils Percent Auto 90.6 % (42.0-72.0); RDW Coefficient of Variation % 15.8 % (11.5-15.5); Red Blood Count 3.19 m/uL (4.00-5.20); White Blood Count* 22.61 K/uL (4.50-11.00)
[2023-01-08 07:11] LABS: Slide Review Reflex Yes
[2023-01-08 07:13] LABS: Lactate* 0.9 mmol/L (0.5-1.9)
[2023-01-08 07:40] LABS: Platelet Count* 416 K/uL (140-440); Slide Review Acceptable Review (Acceptable)
[2023-01-08 07:54] LABS: Albumin* 3.1 g/dL (3.3-5.0); Chloride* 105 mmol/L (96-114); Sodium* 138 mmol/L (135-149)
[2023-01-08 07:55] LABS: Potassium* 3.3 mmol/L (3.6-5.1)
[2023-01-08 07:56] LABS: Creatinine* 2.6 mg/dL (0.5-1.5); Est. Creatinine Clearance* 18.18; Estimated Glomerular Filt Rate 22 ml/min
[2023-01-08 07:57] LABS: Alanine Aminotransferase* 38 U/L (4-35); Alkaline Phosphatase* 108 U/L (40-150); Anion Gap 14 mEq/L (7-15); Aspartate Amino Transferase* 44 U/L (12-35); Bilirubin Direct* 0.5 mg/dL (0.0-0.5); Bilirubin Total* 0.9 mg/dL (0.1-1.5); Blood Urea Nitrogen* 46 mg/dL (7-30); Carbon Dioxide* 19 mmol/L (20-32); Glucose* 139 mg/dL (60-115)
[2023-01-08 07:58] LABS: Calcium* 7.5 mg/dL (8.4-10.6); Magnesium* 1.7 mg/dL (1.5-2.6); Phosphorus* 4.1 mg/dL (2.5-4.5)
[2023-01-08 08:08] LABS: NT Pro B Type NatriureticPept* 3160 pg/mL
[2023-01-08] MEDS: PARoxetine 20 MG TABLET 40 MG PO (08:30)
[2023-01-08] MEDS: oxyBUTYnin chloride 5 MG TABLET PO ×3 (08:31→21:27)
[2023-01-08] MEDS: FLUCONAZOLE 100 MG TABLET PO (08:31)
[2023-01-08] MEDS: LEVOTHYROXINE 100 MCG TABLET PO (08:31)
[2023-01-08] MEDS: LOSARTAN POTASSIUM 50 MG TABLET 25 MG PO (08:31)
[2023-01-08] MEDS: SODIUM CHLORIDE 0.9 % (FLUSH) 10 ML SYRINGE 5 ML IVF (08:31)
[2023-01-08] MEDS: NYSTATIN POWDER 1 APPLIC TOPICAL ×2 (08:34→21:27)
[2023-01-08 09:03] LABS: C Reactive Protein* 36.7 mg/dL (0.5-1.0)
[2023-01-08 09:17] LABS: INR 1.51 (0.91-1.10); Prothrombin Time 19.2 Seconds
--- NOTE | 2023-01-08 09:57 | PM.IMPN1 ---
Progress Note: A&P Assessment and plan (1) Sepsis: Problem details: - unclear of etiology, possibly skin with panniculitis, sherrie dermatitis, and possible cellulitis. - with WBC elevated at 29,000 and CRP at 24, there is still concerned that I may not have yet identified the source of her presentation. Should additional diagnostic studies be required, such as CT scan of chest, abdomen, pelvis, the patient will need to be transferred to a tertiary care facility that is capable of performing this additional diagnostic study on this patient. Our CT scan has a weight limit of 450 lb. Her current weight is 490 lb. - for now we are covering her with IV vancomycin and IV piperacillin with tazobactam. Various cultures are for the time being negative and still pending. - 01/08: Leukocytosis down trending. CRP remains elevated. 1 blood culture positive for gram +cocci, 2nd blood culture negative, suspect contamination. UC pending. MRSA negative, vancomycin discontinued. Remains afebrile. IVF rate decreased, plan to discontinue with adequate oral intake and ongoing clinical improvement. Monitor for fluid overload. Continue skin cares, monitor for new or worsening symptoms. Status: Acute (2) Urinary incontinence: Problem details: - reportedly acute, since recent UTI, seemingly caused by bladder spasms. Does use oxybutynin at baseline. UA does not suggest UTI. UC pending. Status: Acute (3) Anemia: Problem details: - 01/07/23: Hg 9.4, with no overt blood loss - downtrending, currently 8.7, still without report of acute bleed. FOBT ordered. Continue to monitor Status: Acute (4) Elevated LFTs: Problem details: - T Bili nl 1.2, D Bili elev 0.7, AST elev 75, ALT elev 50, Alk phos nl 138. Alb nl 3.3, PT is pending - 01/08: AST and ALT down trending, bilirubin and alk-phos WNL. INR 1.51 Status: Acute (5) Hypokalemia: Problem details: - stop HCTZ - replace with potassium chloride 20 mEq b.i.d. and continue to monitor K+ and Mg++ - corrected calcium 8.0 Status: Acute (6) OKSANA (obstructive sleep apnea): Problem details: - continue with her baseline use of CPAP when asleep Status: Acute (7) Diabetes: Problem details: - ordinarily utilizes only pioglitazone - Hold pioglitazone - SS aspart insulin for now, glucose checks ACHS, diabetic diet Status: Acute (8) HTN (hypertension): Problem details: - continue losartan - hold HCTZ Status: Acute (9) CKD (chronic kidney disease) stage 3, GFR 30-59 ml/min: Problem details: - creatinine down trending, 2.6 currently, 2.8 on admission, e-CrCl 16, eGFR 20 Status: Chronic (10) RIOS (acute kidney injury): Problem details: - current 2.6, down from 2.8, continue to monitor Status: Acute (11) Sialadenitis: Problem details: - encourage fluids, keep oral mucosa moist, tart/sour candies, self massage of glands, pain management as needed - afebrile, nonpurulent, continue to monitor Status: Acute (12) Morbid obesity with body mass index (BMI) greater than or equal to 50: Problem details: - 01/07/23: wt. 221.7 kg, height 152.4 cm, BMI 95.5 kg/m2. Unable to utilize CT scanner if needed Status: Acute Time Spent With Patient Total time spent: Total time spent caring for the patient today was 45 minutes. This includes time spent for the visit reviewing the chart, time spent during the visit, time spent after the visit and documentation and planning in coordination of care. Subjective Date Seen: 01/08/23 Interval history: Patient reports feeling overall weak this morning, no worse than previous just not significantly improving. Denies headache or dizziness. Denies body aches. Has remained afebrile. Tolerating orals without nausea vomiting. Last bowel movement 3 days ago which was loose. Reports inconsistent stools so this is not unusual for her. Concerned this morning of swelling of oral mucosa, bilaterally. Uncomfortable but not painful. No difficulty swallowing or speaking. Tolerating orals. Exam Narrative: Exam Narrative: PHYSICAL EXAM General: Pleasant, conversant, NAD HEENT: Oral mucosa moist, swelling of glands noted bilaterally, mild erythema, mild tenderness with palpation, unable to express discharge. No swelling, pain of gums. Cardiovascular: RRR, S1S2. Pulmonary: CTA diminished without rhonchi, rales, expiratory wheezes. No dyspnea on room air Abdominal: Soft, morbidly obese, nondistended, NTTP Neurological: Alert, answering questions appropriately, cranial nerves intact, no focal findings Extremities: No gross joint deformity or swelling. AROMI. Neurovascularly intact. Lymphedema bilaterally Skin: Warm, dry. Const: Vital Signs, click to edit/add: Vital Signs - 24 hr 01/07/23 11:49 01/07/23 15:00 01/07/23 19:00 Temperature 96.8 F L 97.8 F 97.1 F L Pulse Rate [Left P ulse Oximeter] 80 81 80 Respiratory Rate 16 16 20 Blood Pressure [Ri ght Forearm] 104/53 L 99/48 L 105/52 L Pulse Oximetry 92 91 97 Oxygen Delivery Me thod Room Air Room Air CPAP 01/07/23 23:00 01/07/23 23:00 01/08/23 03:00 Temperature 97.1 F L 97.5 F L Pulse Rate [Left P ulse Oximeter] 80 80 81 Respiratory Rate 20 20 20 Blood Pressure [Ri ght Forearm] 103/54 L 112/63 Pulse Oximetry 96 95 Oxygen Delivery Me thod CPAP CPAP 01/08/23 07:00 01/08/23 07:35 Temperature 97.7 F Pulse Rate [Left P ulse Oximeter] 80 80 Respiratory Rate 18 18 Blood Pressure [Ri ght Forearm] 118/62 Pulse Oximetry 97 Oxygen Delivery Me thod CPAP Labs Labs: Laboratory Results - last 24 hr 01/07/23 01/07/23 01/08/23 13:30 15:36 06:57 WBC 22.61 H RBC 3.19 L Hgb 8.7 L Hct 29.7 L MCV 93 MCH 27 MCHC 29 L RDW Coeff of Padmini 15.8 H Plt Count 416 Neut % (Auto) 90.6 H Lymph % (Auto) 4.1 L [place] % (Auto) 3.6 Eos % (Auto) 0.5 Baso % (Auto) 0.1 Neut # (Auto) 20.50 H Lymph # (Auto) 0.90 [place] # (Auto) 0.80 Eos # (Auto) 0.10 Baso # (Auto) 0.00 Abs Immat Gran (auto) 0.20 Imm/Tot Granulo (auto) 1.1 Diff Slide Review Acceptable Review INR 1.51 H VBG pH 7.441 H VBG pCO2 33 L VBG pO2 62.2 H VBG HCO3 23 Sodium 138 Potassium 4.9 3.3 L Chloride 105 Carbon Dioxide 19 L Anion Gap 14 BUN 46 H Creatinine 2.6 H Estimated Creat Clear 18.18 Estimated GFR 22 Glucose 139 H Lactate 0.9 Calcium 7.5 L Phosphorus 4.1 Magnesium 1.7 Total Bilirubin 0.9 Direct Bilirubin 0.5 AST 44 H ALT 38 H Alkaline Phosphatase 108 C-Reactive Protein 36.7 H NT-Pro-B Natriuret Pep 3160 Total Protein 7.0 Albumin 3.1 L
[2023-01-08] MEDS: ACETAMINOPHEN 325 MG TABLET PO ×3 (10:21→23:49)
[2023-01-08] MEDS: ONDANSETRON ODT 4 MG TAB PO (10:22)
[2023-01-08] MEDS: 0.9 % SODIUM CHLORIDE 1000 ml 1,000 ML 75 ML IV ×2 (12:17→19:31)
[2023-01-08] MEDS: POTASSIUM CHLORIDE 10 MEQ CAPSULE ER 20 MEQ PO (17:12)
[2023-01-08] MEDS: SIMVASTATIN 10 MG TABLET 5 MG PO (17:13)
[2023-01-08] MEDS: INSULIN ASPART 100 UNIT/ML SUBCUT (17:13)
--- NOTE | 2023-01-08 17:23 | PC.NURSE ---
Patient A&O and VSS. CPAP worn overnight and during the day patient maintains O2 > 90% on RA. Reports having chronic back/tailbone pain d/t previous lumbar fracture. Inter-dry changes and cleansing abdominal, groin and BLE folds is also painful for patient; frequently yelling out and crying. PRN Tylenol utilized x2 doses and scheduled Nystatin powder. Rodriguez catheter intact & patent- urine is cloudy fabiano. Adequate appetite but does not enjoy the food so intake has been low- sister bringing in food for supper. Blood sugars: 116 > 127 154; received 2 units Novolog with supper. IVF decreased to 75 mL/hr today. Blood cultures positive for gram positive cocci in clusters. Continuing with IV zosyn q6H and IV Vanco q24H. Received PO Potassium this evening for K+ levle 3.3. Up in the chair for 1 hour today before lunch; pt could not tolerate it any longer. Pt was incontinent of stool today- Hemoccult was ordered this AM but unable to collect adequate sample.
[2023-01-08 17:39] LABS: HCO3 VBG 21 mmol/L (21-28); PCO2 VBG 33 mmHG (40-50); pH VBG 7.415 (7.32-7.43)
[2023-01-08] MEDS: ENOXAPARIN 40 MG/0.4 ML INJ SUBCUT (21:27)
--- NOTE | 2023-01-08 22:33 | PM.IMPN1 ---
Progress Note: A&P Assessment and plan (1) Sepsis: Problem details: Source of sepsis is uncertain. Consider UTI with recent Klebsiella pneumonia inadequately treated, skin and soft tissue infection related to fairly severe groin and diaper area dermatitis as leading considerations for the source of sepsis. Patient may need to be transferred if ongoing diagnostic uncertainty requiring further imaging which cannot be done here. Status: Acute (2) Urinary incontinence: Problem details: - reportedly acute, since recent UTI, seemingly caused by bladder spasms. Does use oxybutynin at baseline. UA does not suggest UTI. UC pending. Status: Acute (3) Anemia: Problem details: Continue to monitor. Initiate some inpatient evaluation and monitor for ongoing or progressive anemia or blood loss Status: Acute (4) Elevated LFTs: Problem details: Abnormal liver enzymes. Continue to monitor. Possible PAZ or acute liver injury from sepsis Status: Acute (5) Hypokalemia: Problem details: Monitor and replace Status: Acute (6) OKSANA (obstructive sleep apnea): Problem details: - continue with her baseline use of CPAP when asleep Status: Acute (7) Diabetes: Problem details: Monitor and adjust medications. Would benefit from GLP 1 inhibitor for weight loss as well Status: Acute (8) HTN (hypertension): Problem details: Monitor and adjust medicines as she recovers from sepsis Status: Acute (9) CKD (chronic kidney disease) stage 3, GFR 30-59 ml/min: Problem details: Continue to monitor. Status: Chronic (10) RIOS (acute kidney injury): Problem details: Acute kidney injury likely due to sepsis continue to monitor. Status: Acute (11) Sialadenitis: Problem details: - encourage fluids, keep oral mucosa moist, tart/sour candies, self massage of glands, pain management as needed - afebrile, nonpurulent, continue to monitor Status: Acute (12) Morbid obesity with body mass index (BMI) greater than or equal to 50: Problem details: - 01/07/23: wt. 221.7 kg, height 152.4 cm, BMI 95.5 kg/m2. Unable to utilize CT scanner if needed. Consult nutrition for weight loss program if patient agrees Status: Acute (13) Diaper dermatitis: Problem details: Fairly severe skin breakdown in the perianal area and groin area. Appears that patient has difficulties maintaining hygiene. Status: Acute (14) Poor social situation: Problem details: Patient has fair amount of support from family at home. There is always someone in the family around to help. It is unclear whether they can manage her personal hygiene needs however. Clearly this was a problem on admission with fairly severe skin breakdown in her perineum Status: Acute (15) Mobility impaired: Problem details: Due to obesity patient has very limited no mobility and likely needs additional help. She does have help at home. Currently unclear if this is adequate but patient reports historically she has been managing well with her mobility and personal hygiene up until recently. Status: Acute (16) Positive blood culture: Problem details: 1 of 2 blood cultures on admission is positive for Gram-positive cocci in clusters. On vancomycin Status: Acute Plan Continue in hospital for IV antibiotics and evaluation and management of sepsis. Monitor of chronic medical problems, evaluating and treating skin breakdown Time Spent With Patient Total time spent: Total time spent today is 70 minutes, 50 minutes in coordination of care discussing with patient and other providers ongoing evaluation management of sepsis and mobility and skin problems Subjective Date Seen: 01/09/23 Interval history: 52-year-old female with morbid obesity admitted to the hospital with sepsis. A week and half prior to admission patient had onset of urinary urgency and urge incontinence. She described episodes of bladder spasms with urge incontinence. She suspected she had a urinary tract infection and a cultures obtained on December 31 in the clinic. This grew out Klebsiella pneumonia which was resistant to ampicillin but sensitive to other antibiotics including cefazolin. She was treated with cephalexin starting about 5 days ago. Two days ago she was admitted to the hospital because she was feeling increasingly ill with weakness fever and ongoing urinary symptoms. On the day of admission she was found to be acutely ill with tachycardia, hypotension, elevated lactate of 2.1, [place] [address], elevated CRP of 24, elevated procalcitonin. She was diagnosed with sepsis and started on piperacillin tazobactam and vancomycin. The source of the sepsis with this uncertain with concern about a urinary source as well as a skin source. Her urine is cloudy but otherwise unremarkable. Cultures of blood and urine are pending. 1 of 2 blood cultures grew Gram-positive cocci in clusters and that is still pending for ID and sensitivity. Nasal swab for MRSA was negative. Due to her obesity she was unable to receive a CT scan to further evaluate for a focus of infection. Our CT scanner allows up to 220 kg and she is currently 226 kg. She has fairly severe skin breakdown in her skin folds in the perineal and genital region. She has multiple areas of ulceration up especially in the perianal area where there is also some bleeding from open ulcers. Patient reports feeling a little better today than yesterday. She finds it uncomfortable to have the nurses do hygiene for her. She does have an indwelling Rodriguez. There is question of incontinent diarrhea stools. Exam Narrative: Exam Narrative: She is alert and oriented to her circumstances she gives her own history. Eyes normal. Oropharynx with very small airway, Mallampati 4. Neck is supple without mass or adenopathy. Respirations are clear to auscultation. Breathing is unlabored. Cardiovascular: S1, S2. Very distant heart sounds. Abdomen: Bowel sounds are present. Abdomen is soft without tenderness or mass. She has erythema in most of her skin folds including around her elbows and knees and under her pannus. These are treated with nystatin powder. Erythema does not extend far beyond the skin fold area. Perianal area has very raw skin with open ulcers and diffuse erythema. When the nurses cleaning this up it has got bloody drainage on the wipes. No focus of large ulceration or abscess identified. Extremities are warm to touch. Good capillary refill. Const: Vital Signs, click to edit/add: Vital Signs - 24 hr 01/07/23 23:00 01/07/23 23:00 01/08/23 03:00 Temperature 97.1 F L 97.5 F L Pulse Rate [Left P ulse Oximeter] 80 80 81 Respiratory Rate 20 20 20 Blood Pressure [Le ft Arm] Blood Pressure [Ri ght Forearm] 103/54 L 112/63 Pulse Oximetry 96 95 Oxygen Delivery Me thod CPAP CPAP 01/08/23 07:00 01/08/23 07:35 01/08/23 12:53 Temperature 97.7 F 98 F Pulse Rate [Left P ulse Oximeter] 80 80 92 Respiratory Rate 18 18 20 Blood Pressure [Le ft Arm] Blood Pressure [Ri ght Forearm] 118/62 122/66 Pulse Oximetry 97 95 Oxygen Delivery Me thod CPAP Room Air 01/08/23 15:53 01/08/23 15:56 01/08/23 20:00 Temperature 97.7 F 98.1 F Pulse Rate [Left P ulse Oximeter] 76 76 79 Respiratory Rate 20 20 20 Blood Pressure [Le ft Arm] 106/62 122/53 L Blood Pressure [Ri ght Forearm] 95/59 L Pulse Oximetry 95 91 Oxygen Delivery Me thod Room Air Room Air Documenting provider has reviewed patient's vital signs: yes Labs Labs: Laboratory Results - last 24 hr 01/08/23 06:57 WBC 22.61 H RBC 3.19 L Hgb 8.7 L Hct 29.7 L MCV 93 MCH 27 MCHC 29 L RDW Coeff of Padmini 15.8 H Plt Count 416 Neut % (Auto) 90.6 H Lymph % (Auto) 4.1 L [place] % (Auto) 3.6 Eos % (Auto) 0.5 Baso % (Auto) 0.1 Neut # (Auto) 20.50 H Lymph # (Auto) 0.90 [place] # (Auto) 0.80 Eos # (Auto) 0.10 Baso # (Auto) 0.00 Abs Immat Gran (auto) 0.20 Imm/Tot Granulo (auto) 1.1 Diff Slide Review Acceptable Review INR 1.51 H VBG pH 7.415 VBG pCO2 33 L VBG pO2 139.0 H VBG HCO3 21 Sodium 138 Potassium 3.3 L Chloride 105 Carbon Dioxide 19 L Anion Gap 14 BUN 46 H Creatinine 2.6 H Estimated Creat Clear 18.18 Estimated GFR 22 Glucose 139 H Lactate 0.9 Calcium 7.5 L Phosphorus 4.1 Magnesium 1.7 Total Bilirubin 0.9 Direct Bilirubin 0.5 AST 44 H ALT 38 H Alkaline Phosphatase 108 C-Reactive Protein 36.7 H NT-Pro-B Natriuret Pep 3160 Total Protein 7.0 Albumin 3.1 L
[2023-01-09] MEDS: PIPERACILLIN/TAZOBACTAM 3.375 GM in 0.9 % SODIUM CHLORIDE Mini-bag 100 ML IVPB ×4 (00:48→19:49)
[2023-01-09 03:00] VITALS: BP 112/54; PULSE 80; RESP 20; TEMP 36.8; O2SAT 95
--- NOTE | 2023-01-09 06:32 | PC.NURSE ---
Shift note: Urine output adequate, straw in color and cloudy. pt declined to be repositioned overnight, she stated she is comfortable and wants to rest. Afebrile, one loose incontinent BM overnight
[2023-01-09 07:00] VITALS: BP 130/32; PULSE 73; PULSE 74; RESP 18; TEMP 36.3; O2SAT 98
[2023-01-09 08:15] LABS: Basophils Percent Auto 0.1 % (0.0-3.0); Eosinophils Percent Auto 0.8 % (0.0-7.0); Hematocrit 30.2 % (33.0-51.0); Immature Granulocytes Pct Auto 1.4 %; Lymphocytes Percent Auto 4.9 % (20-44); Mean Corpuscular HGB Conc 30 gm/dL (32-36); Mean Corpuscular Hemoglobin 28 pg (26-34); Mean Corpuscular Volume 93 fL (80-100); Monocytes Percent Auto 4.5 % (0.0-11.0); Neutrophils Percent Auto 88.3 % (42.0-72.0); Platelet Count* 400 K/uL (140-440); RDW Coefficient of Variation % 15.9 % (11.5-15.5); Red Blood Count 3.25 m/uL (4.00-5.20); White Blood Count* 21.32 K/uL (4.50-11.00)
[2023-01-09 08:17] LABS: Slide Review Acceptable Review (Acceptable); Slide Review Reflex Yes
[2023-01-09 08:32] LABS: Chloride* 106 mmol/L (96-114)
[2023-01-09 08:33] LABS: Albumin* 3.1 g/dL (3.3-5.0); Sodium* 136 mmol/L (135-149)
[2023-01-09 08:34] LABS: Potassium* 3.3 mmol/L (3.6-5.1)
[2023-01-09 08:36] LABS: Alkaline Phosphatase* 95 U/L (40-150); Anion Gap 13 mEq/L (7-15); Aspartate Amino Transferase* 35 U/L (12-35); Bilirubin Direct* 0.3 mg/dL (0.0-0.5); Bilirubin Total* 0.8 mg/dL (0.1-1.5); Blood Urea Nitrogen* 45 mg/dL (7-30); Carbon Dioxide* 17 mmol/L (20-32); Creatinine* 2.4 mg/dL (0.5-1.5); Estimated Glomerular Filt Rate 24 ml/min; Total Protein* 7.1 g/dL (6.0-8.3)
[2023-01-09 08:37] LABS: Alanine Aminotransferase* 31 U/L (4-35); Calcium* 7.4 mg/dL (8.4-10.6); Glucose* 134 mg/dL (60-115)
[2023-01-09 08:53] LABS: C Reactive Protein* 24.4 mg/dL (0.5-1.0)
[2023-01-09] MEDS: POTASSIUM CHLORIDE 10 MEQ CAPSULE ER 20 MEQ PO ×2 (10:25→17:35)
[2023-01-09] MEDS: FLUCONAZOLE 100 MG TABLET PO (10:25)
[2023-01-09] MEDS: LEVOTHYROXINE 100 MCG TABLET PO (10:25)
[2023-01-09] MEDS: oxyBUTYnin chloride 5 MG TABLET PO ×3 (10:26→20:26)
[2023-01-09] MEDS: NYSTATIN POWDER 1 APPLIC TOPICAL ×2 (10:26→20:26)
[2023-01-09] MEDS: PARoxetine 20 MG TABLET 40 MG PO (10:27)
[2023-01-09] MEDS: SODIUM CHLORIDE 0.9 % (FLUSH) 10 ML SYRINGE 5 ML IVF ×2 (10:27→20:26)
[2023-01-09 11:00] VITALS: BP 127/55; PULSE 74; RESP 18; TEMP 37.1; O2SAT 95
[2023-01-09 14:04] LABS: HCO3 VBG 20 mmol/L (21-28); PCO2 VBG 27 mmHG (40-50); PO2 VBG 57.5 mmHG (25-47); pH VBG 7.481 (7.32-7.43)
[2023-01-09] MEDS: OMEPRAZOLE 20 MG CAPSULE DR PO (14:44)
[2023-01-09 15:00] VITALS: BP 121/60; PULSE 74; PULSE 80; RESP 16; TEMP 36.3; O2SAT 98
[2023-01-09] MEDS: SIMVASTATIN 10 MG TABLET 5 MG PO (17:35)
[2023-01-09] MEDS: ACETAMINOPHEN 325 MG TABLET PO ×2 (17:35→23:31)
[2023-01-09] MEDS: BENZOCAINE/MENTHOL 1 EACH LOZENGE MUCOUS MEM (18:02)
[2023-01-09 19:00] VITALS: BP 107/68; PULSE 80; RESP 24; TEMP 36.7; O2SAT 95
--- NOTE | 2023-01-09 19:44 | PC.NURSE ---
End of shift-- Alert and oriented patient was primarily pleasant and cooperative. VSS and pt is afebrile. SP02 maintained >90% on RA. Pt c/o pain in back, folds and mouth this evening. She was given Tylenol and pt appears comfortable while lying still, however, cries and expresses a lot of pain with any movement and with cleaning up. She was given a PRN Cepastat lozenge for her sore mouth and MD was notified. LS CTA. She denied any nausea. BS low 100s today and she was given no insulin per sliding scale. Pt refused tray, but was bringing her in food. Pt announced after eating it that she ate mac and cheese for breakfast and a [employer] cheeseburger for lunch. She asked for only 2 slices of charu food cake for dinner and was informed that only one dessert could be offered. Shortly thereafter, was noted to have a very large plate filled with birthday cake in pt's room. Pt was informed that was not a healthy choice and she stated that it belonged to her . Pt adamantly refused transfer to the chair despite an extensive amount of encouragement and education to do so. Pt promised that she will get up to the chair tomorrow morning. Pt was turned and repositioned in bed with assist of 4, inflatable pad and equipment. Folds were extensively washed, dried, nystatin applied and Interdry inserted. Pt had loose incontinent stools twice today. The first time, pt was noted to have extreme excoriation and serosanguineous drainage and MD visualized at bedside. Barrier cream was applied. The 2nd time, pt was noted to have liquid, bright red bleeding and MD was notified, but unavailable for longer than pt could tolerate being on her side and is planning to visualize at next turn. Report to JOLENE Lemus.
[2023-01-09] MEDS: MELATONIN 3 MG TABLET PO (20:25)
[2023-01-09] MEDS: ENOXAPARIN 40 MG/0.4 ML INJ SUBCUT (20:26)
[2023-01-09 23:00] VITALS: BP 114/60; PULSE 74; PULSE 77; PULSE 80; RESP 20; RESP 24; TEMP 36.2; O2SAT 98
[2023-01-10] MEDS: PIPERACILLIN/TAZOBACTAM 3.375 GM in 0.9 % SODIUM CHLORIDE Mini-bag 100 ML IVPB ×4 (00:58→17:58)
[2023-01-10 03:00] VITALS: BP 115/63; PULSE 71; RESP 20; TEMP 36.1; O2SAT 95
--- NOTE | 2023-01-10 06:47 | PC.NURSE ---
End of shift report [id number]: Patient pleasant and cooperative with cares. Pain to mouth reported, left inner cheek has small sore surrounded by white. MD notified and visited patient, while MD present patient was assisted onto her side for evaluation of bleeding to her buttocks. Small open area noted that appears to be source of bleeding. New order for nystatin swish and swallow. Rodriguez catheter patent, draining cloudy, dark yellow, strong odor urine.
[2023-01-10 07:12] LABS: Basophils Percent Auto 0.1 % (0.0-3.0); Eosinophils Percent Auto 0.8 % (0.0-7.0); Hematocrit 29.8 % (33.0-51.0); Hemoglobin* 8.7 gm/dL (12.0-16.0); Immature Granulocytes Pct Auto 0.8 %; Lymphocytes Percent Auto 7.6 % (20-44); Mean Corpuscular HGB Conc 29 gm/dL (32-36); Mean Corpuscular Hemoglobin 27 pg (26-34); Mean Corpuscular Volume 93 fL (80-100); Neutrophils Percent Auto 84.7 % (42.0-72.0); Platelet Count* 414 K/uL (140-440)
[2023-01-10 07:14] LABS: Slide Review Reflex No
[2023-01-10 07:31] LABS: Chloride* 108 mmol/L (96-114)
[2023-01-10 07:32] LABS: Albumin* 2.9 g/dL (3.3-5.0); Potassium* 3.3 mmol/L (3.6-5.1); Sodium* 139 mmol/L (135-149)
[2023-01-10 07:34] LABS: Creatinine* 2.3 mg/dL (0.5-1.5); Est. Creatinine Clearance* 20.55; Estimated Glomerular Filt Rate 25 ml/min
[2023-01-10 07:35] LABS: Alanine Aminotransferase* 26 U/L (4-35); Alkaline Phosphatase* 92 U/L (40-150); Anion Gap 12 mEq/L (7-15); Aspartate Amino Transferase* 25 U/L (12-35); Bilirubin Direct* 0.3 mg/dL (0.0-0.5); Bilirubin Total* 0.7 mg/dL (0.1-1.5); Blood Urea Nitrogen* 39 mg/dL (7-30); Calcium* 7.6 mg/dL (8.4-10.6); Carbon Dioxide* 19 mmol/L (20-32); Glucose* 130 mg/dL (60-115); Total Protein* 6.9 g/dL (6.0-8.3)
[2023-01-10 07:49] LABS: C Reactive Protein* 20.8 mg/dL (0.5-1.0)
[2023-01-10 08:42] VITALS: BP 136/59; PULSE 70; RESP 16; TEMP 36.4; O2SAT 99
[2023-01-10] MEDS: POTASSIUM CHLORIDE 10 MEQ CAPSULE ER 20 MEQ PO ×2 (09:02→17:57)
[2023-01-10] MEDS: PARoxetine 20 MG TABLET 40 MG PO (09:02)
[2023-01-10] MEDS: oxyBUTYnin chloride 5 MG TABLET PO ×3 (09:03→20:28)
[2023-01-10] MEDS: FLUCONAZOLE 100 MG TABLET PO (09:03)
[2023-01-10] MEDS: LEVOTHYROXINE 100 MCG TABLET PO (09:03)
[2023-01-10] MEDS: NYSTATIN POWDER 1 APPLIC TOPICAL ×2 (10:50→20:29)
[2023-01-10] MEDS: ACETAMINOPHEN 325 MG TABLET PO ×2 (11:55→19:56)
[2023-01-10 12:35] VITALS: BP 143/70; PULSE 76; RESP 20; TEMP 36.5; O2SAT 94
[2023-01-10 14:27] LABS: HCO3 VBG 22 mmol/L (21-28); PCO2 VBG 37 mmHG (40-50); pH VBG 7.383 (7.32-7.43)
--- NOTE | 2023-01-10 15:35 | P.IMPN_ITS ---
Progress Note: A&P Assessment and plan (1) Sepsis: Problem details: Source of sepsis is uncertain. Consider UTI with recent Klebsiella pneumonia inadequately treated, skin and soft tissue infection related to fairly severe groin and diaper area dermatitis as leading considerations for the source of sepsis. Patient may need to be transferred if ongoing diagnostic uncertainty requiring further imaging which cannot be done here due to her weight of over 220 kg. Status: Acute (2) Urinary incontinence: Problem details: - reportedly acute, since recent UTI, seemingly caused by bladder spasms. Does use oxybutynin at baseline. UC pending. Status: Acute (3) Anemia: Problem details: Continue to monitor. Initiate some inpatient evaluation and monitor for ongoing or progressive anemia or blood loss Status: Acute (4) Elevated LFTs: Problem details: Abnormal liver enzymes. Continue to monitor. Possible PAZ or acute liver injury from sepsis Status: Acute (5) Hypokalemia: Problem details: Monitor and replace Status: Acute (6) OKSANA (obstructive sleep apnea): Problem details: - continue with her home CPAP when asleep Status: Acute (7) Diabetes: Problem details: Monitor and adjust medications. Would benefit from GLP 1 inhibitor for weight loss as well Status: Acute (8) HTN (hypertension): Problem details: Monitor and adjust medicines as she recovers from sepsis Status: Acute (9) CKD (chronic kidney disease) stage 3, GFR 30-59 ml/min: Problem details: Continue to monitor. Status: Chronic (10) RIOS (acute kidney injury): Problem details: Acute kidney injury likely due to sepsis. continue to monitor. Status: Acute (11) Sialadenitis: Problem details: - encourage fluids, keep oral mucosa moist, tart/sour candies, self massage of glands, pain management as needed - afebrile, nonpurulent, continue to monitor Status: Acute (12) Morbid obesity with body mass index (BMI) greater than or equal to 50: Problem details: - 01/07/23: wt. 221.7 kg, height 152.4 cm, BMI 95.5 kg/m2. Unable to utilize CT scanner if needed. Consult nutrition for weight loss program. Patient is open to calorie restricted diet in the hospital. Will need to get by in from her who is bringing in her food. Status: Acute (13) Diaper dermatitis: Problem details: Fairly severe skin breakdown in the perianal area and groin area. Appears that patient has difficulties maintaining hygiene. Diflucan and barrier cream. Evaluate and treat diarrhea. Address incontinence of stool Status: Acute (14) Poor social situation: Problem details: Patient has fair amount of support from family at home. There is always someone in the family around to help. It is unclear whether they can manage her personal hygiene needs however. Clearly this was a problem on admission with fairly severe skin breakdown in her perineum Status: Acute (15) Mobility impaired: Problem details: Due to obesity patient has very limited no mobility and likely needs additional help. She does have help at home. Currently unclear if this is adequate but patient reports historically she has been managing well with her mobility and personal hygiene up until recently. Status: Acute (16) Positive blood culture: Problem details: 1 of 2 blood cultures on admission is positive for Gram-positive cocci in clusters. Probably contaminant. Status: Acute Plan Continue in hospital for management and evaluation of sepsis. Specific attention to treating urinary tract infection and skin infection. Also address disabilities related to obesity. Time Spent With Patient Total time spent: Total time spent today is 55 minutes, 40 minutes in coordination of care discussing with patient and other providers ongoing management of sepsis and complications of obesity Subjective Date Seen: 01/10/23 Interval history: 52-year-old female with morbid obesity admitted to the hospital with sepsis. A week and half prior to admission patient had onset of urinary urgency and urge incontinence. She described episodes of bladder spasms with urge incontinence. She suspected she had a urinary tract infection and a cultures obtained on December 31 in the clinic. This grew out Klebsiella pneumonia which was resistant to ampicillin but sensitive to other antibiotics including cefazolin. She was treated with cephalexin starting about 5 days ago. Two days ago she was admitted to the hospital because she was feeling increasingly ill with weakness fever and ongoing urinary symptoms. On the day of admission she was found to be acutely ill with tachycardia, hypotension, elevated lactate of 2.1, [place] [address], elevated CRP of 24, elevated procalcitonin. She was diagnosed with sepsis and started on piperacillin tazobactam and vancomycin. The source of the sepsis with this uncertain with concern about a urinary source as well as a skin source. Her urine is cloudy but otherwise unremarkable. Cultures of blood and urine are pending. 1 of 2 blood cultures grew Gram-positive cocci in clusters and that is still pending for ID and sensitivity. Nasal swab for MRSA was negative. Due to her obesity she was unable to receive a CT scan to further evaluate for a focus of infection. Our CT scanner allows up to 220 kg and she is currently 226 kg. She has fairly severe skin breakdown in her skin folds in the perineal and genital region. She has multiple areas of ulceration up especially in the pe rianal area where there is also some bleeding from open ulcers. Patient reports feeling a little better today than yesterday. She finds it uncomfortable to have the nurses do hygiene for her. She does have an indwelling Rodriguez. There is question of incontinent diarrhea stools. She is requiring assistance of several staff members to do personal hygiene in transfer. She is unable to stand today. Using a ceiling lift for transfers Exam Narrative: Exam Narrative: She is alert and appears in no distress. Respirations are clear to auscultation. Breathing is unlabored. Cardiovascular: S1, S2, distant heart sounds. Abdomen: Bowel sounds active. Abdomen is soft without tenderness or mass. Ongoing erythema in most of the skin folds, arms, legs, abdominal pannus. Const: Vital Signs, click to edit/add: Vital Signs - 24 hr 01/09/23 19:00 01/09/23 23:00 01/09/23 23:00 Temperature 98.0 F 97.2 F L Pulse Rate [Left P ulse Oximeter] 80 80 77 Pulse Rate [Left] 74 Respiratory Rate 24 24 20 Blood Pressure [Le ft Arm] 107/68 114/60 Pulse Oximetry 95 98 Oxygen Delivery Me thod Room Air Room Air 01/10/23 03:00 01/10/23 08:42 01/10/23 12:35 Temperature 96.9 F L 97.6 F 97.7 F Pulse Rate [Left P ulse Oximeter] 71 70 76 Pulse Rate [Left] Respiratory Rate 20 16 20 Blood Pressure [Le ft Arm] 115/63 136/59 L 143/70 H Pulse Oximetry 95 99 94 Oxygen Delivery Me thod CPAP CPAP Room Air Documenting provider has reviewed patient's vital signs: yes Labs Labs: Laboratory Results - last 24 hr 01/10/23 01/10/23 07:00 14:17 WBC 17.10 H RBC 3.20 L Hgb 8.7 L Hct 29.8 L MCV 93 MCH 27 MCHC 29 L RDW Coeff of Padmini 16.0 H Plt Count 414 Neut % (Auto) 84.7 H Lymph % (Auto) 7.6 L [place] % (Auto) 6.0 Eos % (Auto) 0.8 Baso % (Auto) 0.1 Neut # (Auto) 14.50 H Lymph # (Auto) 1.30 [place] # (Auto) 1.00 H Eos # (Auto) 0.10 Baso # (Auto) 0.00 Abs Immat Gran (auto) 0.10 Imm/Tot Granulo (auto) 0.8 VBG pH 7.383 VBG pCO2 37 L VBG pO2 47.0 VBG HCO3 22 Sodium 139 Potassium 3.3 L Chloride 108 Carbon Dioxide 19 L Anion Gap 12 BUN 39 H Creatinine 2.3 H Estimated Creat Clear 20.55 Estimated GFR 25 Glucose 130 H Calcium 7.6 L Total Bilirubin 0.7 Direct Bilirubin 0.3 AST 25 ALT 26 Alkaline Phosphatase 92 C-Reactive Protein 20.8 H Total Protein 6.9 Albumin 2.9 L
[2023-01-10 15:57] VITALS: BP 118/52; PULSE 76; RESP 20; TEMP 36.4; O2SAT 96
--- NOTE | 2023-01-10 16:13 | PC.NURSE ---
Shift Summary: Patient pleasant and cooperative. Up in recliner with ceiling lift, 6 assist to position patient safely. Pain managed with PRN and scheduled medication. Vitals stable and WNL. Skin cares performed, nystatin placed in folds with intradry. Bed sheets and gown changed. Continues to have brown/bloody output around buttocks/perineum, unsure of source. When asked if patient can bare down to have BM there was no output. On left buttocks noted open area that appears red with what appears to be a small blister, area cleansed and barrier cream applied.
[2023-01-10] MEDS: SIMVASTATIN 10 MG TABLET 5 MG PO (17:57)
[2023-01-10 19:00] VITALS: BP 123/62; PULSE 80; RESP 20; TEMP 36.7; O2SAT 97
[2023-01-10] MEDS: GABAPENTIN 100 MG CAPSULE 200 MG PO (20:27)
[2023-01-10] MEDS: ENOXAPARIN 40 MG/0.4 ML INJ SUBCUT (20:29)
[2023-01-10] MEDS: MELATONIN 3 MG TABLET PO (20:31)
[2023-01-10 22:51] VITALS: BP 133/58; PULSE 73; PULSE 74; RESP 20; TEMP 36.6; O2SAT 97
[2023-01-11] MEDS: PIPERACILLIN/TAZOBACTAM 3.375 GM in 0.9 % SODIUM CHLORIDE Mini-bag 100 ML IVPB ×4 (00:21→18:33)
[2023-01-11 03:00] VITALS: BP 127/57; PULSE 68; RESP 20; TEMP 36.1; O2SAT 99
[2023-01-11 06:28] LABS: Basophils Percent Auto 0.1 % (0.0-3.0); Eosinophils Percent Auto 0.8 % (0.0-7.0); Hematocrit 28.7 % (33.0-51.0); Hemoglobin* 8.5 gm/dL (12.0-16.0); Immature Granulocytes Pct Auto 2.5 %; Lymphocytes Percent Auto 7.5 % (20-44); Mean Corpuscular HGB Conc 30 gm/dL (32-36); Mean Corpuscular Hemoglobin 28 pg (26-34); Mean Corpuscular Volume 94 fL (80-100); Monocytes Percent Auto 6.6 % (0.0-11.0); Neutrophils Percent Auto 82.5 % (42.0-72.0); Platelet Count* 433 K/uL (140-440); RDW Coefficient of Variation % 16.1 % (11.5-15.5); Red Blood Count 3.06 m/uL (4.00-5.20); White Blood Count* 15.86 K/uL (4.50-11.00)
[2023-01-11 06:31] LABS: Slide Review Reflex No
[2023-01-11 06:40] LABS: Albumin* 2.9 g/dL (3.3-5.0); Chloride* 108 mmol/L (96-114)
[2023-01-11] MEDS: 0.9 % SODIUM CHLORIDE 250 ml IV (06:40)
[2023-01-11 06:41] LABS: Potassium* 3.5 mmol/L (3.6-5.1); Sodium* 139 mmol/L (135-149)
[2023-01-11 06:43] LABS: Creatinine* 2.1 mg/dL (0.5-1.5); Est. Creatinine Clearance* 22.51; Estimated Glomerular Filt Rate 28 ml/min
[2023-01-11 06:44] LABS: Alanine Aminotransferase* 21 U/L (4-35); Alkaline Phosphatase* 91 U/L (40-150); Anion Gap 11 mEq/L (7-15); Aspartate Amino Transferase* 20 U/L (12-35); Bilirubin Direct* 0.1 mg/dL (0.0-0.5); Bilirubin Total* 0.6 mg/dL (0.1-1.5); Blood Urea Nitrogen* 35 mg/dL (7-30); Calcium* 7.8 mg/dL (8.4-10.6); Carbon Dioxide* 20 mmol/L (20-32); Glucose* 131 mg/dL (60-115); Total Protein* 6.9 g/dL (6.0-8.3)
--- NOTE | 2023-01-11 06:48 | PC.NURSE ---
Shift note: Pt has been in bed throughout the shift. Turn from side to side and [id number] and upon request. Offensive bloody discharge from the butt wound. Continue to on CPAP throughout the night. Requested for Tylenol for general body pain of 07/25 at 2014. Vitally stable.
[2023-01-11 07:00] LABS: C Reactive Protein* 18.6 mg/dL (0.5-1.0)
[2023-01-11] MEDS: LEVOTHYROXINE 100 MCG TABLET PO (07:33)
[2023-01-11 08:15] VITALS: BP 130/69; PULSE 72; RESP 16; TEMP 36.3; O2SAT 97
[2023-01-11] MEDS: POTASSIUM CHLORIDE 10 MEQ CAPSULE ER 20 MEQ PO ×2 (09:35→18:35)
[2023-01-11] MEDS: PARoxetine 20 MG TABLET 40 MG PO (09:35)
[2023-01-11] MEDS: PIOGLITAZONE HCL 15 MG TABLET PO (09:35)
[2023-01-11] MEDS: FLUCONAZOLE 100 MG TABLET PO (09:36)
[2023-01-11] MEDS: oxyBUTYnin chloride 5 MG TABLET PO ×3 (09:36→21:11)
[2023-01-11] MEDS: hydroCHLOROthiazide 25 MG TABLET PO (09:36)
[2023-01-11] MEDS: GABAPENTIN 100 MG CAPSULE 200 MG PO ×2 (09:37→21:12)
[2023-01-11] MEDS: LOSARTAN POTASSIUM 50 MG TABLET 25 MG PO (09:37)
[2023-01-11] MEDS: SODIUM CHLORIDE 0.9 % (FLUSH) 10 ML SYRINGE 5 ML IVF ×2 (09:41→21:14)
[2023-01-11] MEDS: NYSTATIN POWDER 1 APPLIC TOPICAL (09:41)
[2023-01-11 11:00] VITALS: PULSE 84; RESP 20; TEMP 36.3; O2SAT 96
--- NOTE | 2023-01-11 12:48 | P.IMPN_ITS ---
Progress Note: A&P Assessment and plan (1) Sepsis: Problem details: Source of sepsis is uncertain. Consider UTI with recent Klebsiella pneumonia inadequately treated, skin and soft tissue infection related to fairly severe groin and diaper area dermatitis as leading considerations for the source of sepsis. Patient may need to be transferred if ongoing diagnostic uncertainty requiring further imaging which cannot be done here due to her weight of over 220 kg. Status: Acute (2) Urinary incontinence: Problem details: - reportedly acute, since recent UTI, seemingly caused by bladder spasms. Does use oxybutynin at baseline. UC pending. Status: Acute (3) Anemia: Problem details: Continue to monitor. Initiate some inpatient evaluation and monitor for ongoing or progressive anemia or blood loss Status: Acute (4) Elevated LFTs: Problem details: Abnormal liver enzymes on admission. Now back to normal Status: Acute (5) Oral ulceration: Problem details: Cause for this is unclear. Being treated for yeast which is present over much of her external body skin folds. Could be aphthous ulcers as well. Will also add Magic mouthwash. Status: Acute (6) Hypokalemia: Problem details: Monitor and replace Status: Acute (7) OKSANA (obstructive sleep apnea): Problem details: - continue with her home CPAP when asleep Status: Acute (8) Diabetes: Problem details: Blood sugars well controlled. Monitor and adjust medications. Would benefit from GLP 1 inhibitor for weight loss as well. Status: Acute (9) HTN (hypertension): Problem details: Monitor and adjust medicines as she recovers from sepsis Status: Acute (10) RIOS (acute kidney injury): Problem details: Acute kidney injury likely due to sepsis. continue to monitor. Slow modest improvement Status: Acute (11) Sialadenitis: Problem details: - encourage fluids, keep oral mucosa moist, tart/sour candies, self massage of glands, pain management as needed - afebrile, nonpurulent, continue to monitor Status: Acute (12) Morbid obesity with body mass index (BMI) greater than or equal to 50: Problem details: - 01/07/23: wt. 221.7 kg, height 152.4 cm, BMI 95.5 kg/m2. Unable to utilize CT scanner if needed. Consult nutrition for weight loss program. Patient is open to calorie restricted diet in the hospital. Request family not bring in food and patient to work with our dietitian and follow Suzie restrictions. She is agreeable to this. Status: Acute (13) Diaper dermatitis: Problem details: Fairly severe skin breakdown in the perianal area and groin area. Appears that patient has difficulties maintaining hygiene. Diflucan and barrier cream. Evaluate and treat diarrhea. Address incontinence of stool Status: Acute (14) Poor social situation: Problem details: Patient has fair amount of support from family at home. There is always someone in the family around to help. It is unclear whether they can manage her personal hygiene needs however. Clearly this was a problem on admission with fairly severe skin breakdown in her perineum Status: Acute (15) Mobility impaired: Problem details: Due to obesity patient has very limited no mobility and likely needs additional help. She does have help at home. Currently unclear if this is adequate but patient reports historically she has been managing well with her mobility and personal hygiene up until recently. Status: Acute (16) Positive blood culture: Problem details: 1 of 2 blood cultures on admission is positive for Gram-positive cocci in clusters. Probably contaminant. Status: Acute (17) Fecal incontinence: Problem details: This developed just prior to admission and is continued in the hospital. The perianal area is very inflamed and she has a hard time sensing whether she is having loose stools or passing gas. This is contributing to her dermatitis in the diaper area Status: Acute (18) CKD (chronic kidney disease) stage 4, GFR 15-29 ml/min: Problem details: Has acute on chronic kidney injury with EGFR in the low 20s. Status: Acute Plan Continue in hospital for evaluation and treatment of sepsis of uncertain etiology. She is clinically improving. Will continue to treat for UTI as well as skin infection. Working on a plan for disposition with a clear need for better skin care. Time Spent With Patient Total time spent: Total time spent today is 55 minutes, 45 minutes in coordination of care and discussing with other providers ongoing management of disability from obesity, sepsis. Subjective Date Seen: 01/11/23 Interval history: 52-year-old female with morbid obesity admitted to the hospital with sepsis. A week and half prior to admission patient had onset of urinary urgency and urge incontinence. She described episodes of bladder spasms with urge incontinence. She suspected she had a urinary tract infection and a cultures obtained on December 31 in the clinic. This grew out Klebsiella pneumonia which was resistant to ampicillin but sensitive to other antibiotics including cefazolin. She was treated with cephalexin starting about 5 days ago. Two days ago she was admitted to the hospital because she was feeling increasingly ill with weakness fever and ongoing urinary symptoms. On the day of admission she was found to be acutely ill with tachycardia, hypotension, elevated lactate [place] 2.1[place] [address], elevated CRP of 24, elevated procalcitonin. She was diagnosed with sepsis and started on piperacillin tazobactam and vancomycin. The source of the sepsis with this uncertain with concern about a urinary source as well as a skin source. Her urine is cloudy but otherwise unremarkable. Cultures of blood and urine are pending. 1 of 2 blood cultures grew Gram-positive cocci in clusters and that is still pending for ID and sensitivity. Nasal swab for MRSA was negative. Due to her obesity she was unable to receive a CT scan to further evaluate for a focus of infection. Our CT scanner allows up to 220 kg and she is currently 226 kg. She has fairly severe skin breakdown in her skin folds in the perineal and genital region. She has multiple areas of ulceration up especially in the perianal area where there is also some bleeding from open ulcers. Patient reports feeling a little better today than yesterday. She finds it uncomfortable to have the nurses do hygiene for her. She does have an indwelling Rodriguez. There is question of incontinent diarrhea stools. She is requiring assistance of several staff members to do personal hygiene. She is unable to stand today. Using a ceiling lift for transfers. I again discussed the need for caloric restriction to help with weight loss. I have asked her to tell her family not to bring in food from home and to follow strict caloric restriction here in the hospital. She tells me she is agreeable with this. Have encouraged her to avoid her favorite foods which include desserts and sweets. She also likes to eat chips but because of her oral ulcers she can not do that right now Exam Narrative: Exam Narrative: She is alert and oriented to her circumstances. Oropharynx is examined she has quite prominent oral ulcers on the buccal mucosa on both sides. These have a white exudate at the base. There are a couple cm in diameter with irregular borders. It looks like they were may be initially smaller ulcers that have coalesced together. Respirations are clear to auscultation. Breathing is unlabored. Cardiovascular: S1, S2, regular rate and rhythm. Large abdominal pannus is nontender. Inspection of the perianal area again today shows in general the erythema that was widespread to the entire perineum is better she has postinflammatory hyperpigmentation in this area without marked erythema. On the left buttock cheek just outside the gluteal cleft she has an ulcer that is about 2 x 10 cm. This area was multiple small bleeding ulcers 2 days ago and these have all cold last into 1 large ulcer now. Const: Vital Signs, click to edit/add: Vital Signs - 24 hr 01/10/23 15:57 01/10/23 19:00 01/10/23 22:51 Temperature 97.6 F 98.1 F Pulse Rate [Left P ulse Oximeter] 76 80 73 Pulse Rate [Left] 74 Respiratory Rate 20 20 20 Blood Pressure [Le ft Arm] 118/52 L 123/62 Pulse Oximetry 96 97 Oxygen Delivery Me thod Room Air CPAP 01/10/23 22:51 01/11/23 03:00 Temperature 97.9 F 97 F L Pulse Rate [Left P ulse Oximeter] 73 68 Pulse Rate [Left] Respiratory Rate 20 20 Blood Pressure [Le ft Arm] 133/58 L 127/57 L Pulse Oximetry 97 99 Oxygen Delivery Me thod CPAP CPAP Documenting provider has reviewed patient's vital signs: yes Labs Labs: Laboratory Results - last 24 hr 01/10/23 01/11/23 14:17 06:07 WBC 15.86 H RBC 3.06 L Hgb 8.5 L Hct 28.7 L MCV 94 MCH 28 MCHC 30 L RDW Coeff of Padmini 16.1 H Plt Count 433 Neut % (Auto) 82.5 H Lymph % (Auto) 7.5 L Kingman % (Auto) 6.6 Eos % (Auto) 0.8 Baso % (Auto) 0.1 Neut # (Auto) 13.10 H Lymph # (Auto) 1.20 Kingman # (Auto) 1.00 H Eos # (Auto) 0.10 Baso # (Auto) 0.00 Abs Immat Gran (auto) 0.40 H Imm/Tot Granulo (auto) 2.5 VBG pH 7.383 VBG pCO2 37 L VBG pO2 47.0 VBG HCO3 22 Sodium 139 Potassium 3.5 L Chloride 108 Carbon Dioxide 20 Anion Gap 11 BUN 35 H Creatinine 2.1 H Estimated Creat Clear 22.51 Estimated GFR 28 Glucose 131 H Calcium 7.8 L Total Bilirubin 0.6 Direct Bilirubin 0.1 AST 20 ALT 21 Alkaline Phosphatase 91 C-Reactive Protein 18.6 H Total Protein 6.9 Albumin 2.9 L
[2023-01-11] MEDS: FLUCONAZOLE 100 MG TABLET 200 MG PO (13:15)
[2023-01-11] MEDS: OMEPRAZOLE 20 MG CAPSULE DR PO (13:16)
[2023-01-11 15:00] VITALS: PULSE 84; PULSE 88; RESP 20; TEMP 36.4; O2SAT 98
--- NOTE | 2023-01-11 15:37 | P.IMCN_ITS ---
Date of Consult Consult date: 01/11/23 Requesting Physician: Hospitalist Primary Care Provider: Ryan Donaldson DO Consult Narrative Narrative: Antonina Elizabeth is a 52 year old female being seen by wound services for multiple MASD to panus and groin folds, and buttock/gluteal wounds. gluteal wounds thought to be pressure ulcers. Incontinence of urine and stool at home. Currently has a Rodriguez catheter in place. Nursing reports buttock wounds draining a lot. The patient presented to the emergency department on 01/07 with urinary incontinence. She stated that she was diagnosed with the urinary tract infec tion a week prior and started on antibiotic. Since then she had not been able to urinate other than spasms with incontinence. She stated that she had discomfort in the area. She initially appeared to be septic with tachycardia, hypotension and chills. White blood cell count was 25 creatinine was 2.8 and lactate was 2.1. Initial UA did not show infection. Admitted to hospital and started on antibiotics. white blood cell count, creatinine and tachycardia improved over the weekend. Wounds noted during routine care. Patient endorses having MASD off/on, and that has been normally treats with gold Moyer powder by her . The patient states that she does have pain in the area but thought it was related to her bladder spasms. No history of perianal abscess. Currently bowel movements are loose but occasionally she does experience firm stool. She has a history of morbid obesity with a BMI of 96, chronic kidney disease and diabetes. She lives independently, however does live with family. Patient reports she has been for 29yo. Her has helped care for her until she was hospitalized. States she has no children. At home she was getting around with a walker and a scooter. Patients body habitus makes visualization of wounds difficult. During hospitalization has required use of a ceiling left and assistance of a 3-4 staff members. BMI 96 Due to weight restrictions imaging of wounds have been unavailable d/t to current facility not having a CT or MRI that can accommodate patients BMI. Review of Systems Status of ROS: Reports: 10 or more systems reviewed and unremarkable except as noted in History and below [facility] Medical History (Updated 01/12/23 @ 08:11 by Kim Owusu CNP) CKD (chronic kidney disease) stage 4, GFR 15-29 ml/min ?N18.4 - Chronic kidney disease, stage 4 (severe) (ICD-10) Mobility impaired ?Z74.09 - Other reduced mobility (ICD-10) Poor social situation ?Z60.9 - Problem related to social environment, unspecified (ICD-10) FH: RADHA-BSO (total abdominal hysterectomy and bilateral salpingo-oophorectomy) ?Z84.2 - Family history of other diseases of the genitourinary system (ICD- 10) Uterine cancer ?C55 - Malignant neoplasm of uterus, part unspecified (ICD-10) OKSANA (obstructive sleep apnea) ?G47.33 - Obstructive sleep apnea (adult) (pediatric) (ICD-10) Diabetes ?E11.9 - Type 2 diabetes mellitus without complications (ICD-10) Morbid obesity with body mass index (BMI) greater than or equal to 50 ?E66.01 - Morbid (severe) obesity due to excess calories (ICD-10) Major depression ?F32.9 - Major depressive disorder, single episode, unspecified (ICD-10) Hypothyroid ?E03.9 - Hypothyroidism, unspecified (ICD-10) HTN (hypertension) ?I10 - Essential (primary) hypertension (ICD-10) Endometrial cancer ?C54.1 - Malignant neoplasm of endometrium (ICD-10) CKD (chronic kidney disease) stage 3, GFR 30-59 ml/min ?N18.30 - Chronic kidney disease, stage 3 unspecified (ICD-10) Anxiety ?F41.9 - Anxiety disorder, unspecified (ICD-10) Surgical History (Updated 01/07/23 @ 03:01 by Gurinder Blankenship DO) History of tonsillectomy ?Z90.89 - Acquired absence of other organs (ICD-10) History of cholecystectomy ?Z90.49 - Acquired absence of other specified parts of digestive tract (ICD- 10) Social History What is your current living situation?: I presently have a place to live Problems where you live: no known problems Problems where you live details: None noted In the past 12 months, utilities in danger of being shut off: no In past 12 months, lack of transportation kept you from medical appts, meetings, work, or getting things needed for daily living: no In the past 12 mos, have been you worried that your food would run out before you had money to buy more?: never true In the past 12 mos, the food you bought just didn't last and you didn't have money to buy more?: never true Highest level of school completed/degree received: high school graduate Smoking Status: Never smoker Second hand tobacco smoke exposure: No How often do you have a drink containing alcohol: never How often do you have six or more drinks on one occasion: Never AUDIT-C Alcohol total score: 0 Non-prescribed substance use: denies use Caffeine: No How often does anyone, including family, friends and others, physically hurt you : never How often does anyone, including family, friends and others, insult or talk down to you: never How often does anyone, including family, friends and others, threaten you with harm: never How often does anyone, including family, friends and others, scream or curse at you: never service: No Meds Home Medications and Allergies Home Medications Medication Instructions Recorded Confirmed Type desoximetasone 0.25 % topical 1 applic topical BID PRN 01/07/23 01/07/23 History ointment gabapentin 100 mg capsule 200 mg PO BID 01/07/23 01/07/23 History hydrochlorothiazide 25 mg tablet 25 mg PO DAILY 01/07/23 01/07/23 History levothyroxine 100 mcg tablet 100 mcg PO DAILY 01/07/23 01/07/23 History losartan 25 mg tablet 25 mg PO DAILY 01/07/23 01/07/23 History omeprazole 20 mg capsule,delayed 20 mg PO Q48H 01/07/23 01/07/23 History release oxybutynin chloride 5 mg tablet 5 mg PO TID 01/07/23 01/07/23 History paroxetine HCl 40 mg tablet 40 mg PO DAILY 01/07/23 01/07/23 History pioglitazone 15 mg tablet 15 mg PO DAILY 01/07/23 01/07/23 History simvastatin 5 mg tablet 5 mg PO QPM 01/07/23 01/07/23 History Allergies Allergy/AdvReac Type Severity Reaction Status Date / Time citalopram [From Celexa] Allergy Severe Verified 01/06/23 20:35 Exam Narrative: Exam Narrative: General: NAD, Alert. Laying in bed watching a Mendix movie. Msk: limited mobility d/t large body habitus. Pulmonary: speaking in full sentences. BLE: cutaneous manifestations consistent with chronic mild lymphedema. no notable lymphorrhea. Anterior Wounds: * Abdominal pannus, skin folds, and groin folds: erosion consistent with Intertriginous moisture associated dermatitis. Areas of confluent diffuse erythema with satellite lesions, consistent with fungal etiology. Posterior Wounds: * Left Buttock: left buttock ecchymotic, concerning for a necrotizing infection. Opening 3X2cm. wound exploration entering through left gluteus with gloved hand, tracks down 10.5cm deep along the rectum; able to express purulent fluid out of rectum itself. Patient tearful and crying during examination, digit exam/formal rectal exam differed. Wound cleansed and packed with aquacel Ag and covered with abd. * Left IT: multiple scattered stage 3 full thickness pressure ulcers. Largest measuring 1.5X1X0.2cm. drainage: sanguinous. drainage amount: small. * Coccyx: superficial skin breakdown. no notable drainage. * Right buttock: small partial thickness pressure ulcer. Drainage clear, small. * Left posterior knee: superficial erosion consistent with MASD. edges with dry superficial crack/fissure. Const: Vital Signs, click to edit/add: Vital Signs - 24 hr 01/10/23 15:57 01/10/23 19:00 01/10/23 22:51 Temperature 97.6 F 98.1 F Pulse Rate [Left P ulse Oximeter] 76 80 73 Pulse Rate [Left] 74 Respiratory Rate 20 20 20 Blood Pressure [Le ft Arm] 118/52 L 123/62 Pulse Oximetry 96 97 Oxygen Delivery Me thod Room Air CPAP 01/10/23 22:51 01/11/23 03:00 01/11/23 08:15 Temperature 97.9 F 97 F L Pulse Rate [Left P ulse Oximeter] 73 68 72 Pulse Rate [Left] Respiratory Rate 20 20 Blood Pressure [Le ft Arm] 133/58 L 127/57 L Pulse Oximetry 97 99 Oxygen Delivery Me thod CPAP CPAP 01/11/23 08:15 Temperature 97.3 F L Pulse Rate [Left P ulse Oximeter] 72 Pulse Rate [Left] Respiratory Rate 16 Blood Pressure [Le ft Arm] 130/69 Pulse Oximetry 97 Oxygen Delivery Me thod CPAP Documenting provider has reviewed patient's vital signs: yes Labs Labs: Short CBC 01/11/23 Range/Units 06:07 WBC 15.86 H (4.50-11.00) K/uL Hgb 8.5 L (12.0-16.0) gm/dL Hct 28.7 L (33.0-51.0) % Plt Count 433 (140-440) K/uL BMP 01/11/23 06:07 Sodium 139 Potassium 3.5 L Chloride 108 Carbon Dioxide 20 BUN 35 H Creatinine 2.1 H Glucose 131 H Calcium 7.8 L Liver Function 01/11/23 Range/Units 06:07 Total Bilirubin 0.6 (0.1-1.5) mg/dL Direct Bilirubin 0.1 (0.0-0.5) mg/dL AST 20 (12-35) U/L ALT 21 (4-35) U/L Alkaline Phosphatase 91 (40-150) U/L Albumin 2.9 L (3.3-5.0) g/dL Assessment and Plan Assessment and plan (1) Mobility impaired: Problem comment: Due to obesity patient has very limited no mobility and likely needs additional help. She does have help at home. Currently unclear if this is adequate but patient reports historically she has been managing well with her mobility and personal hygiene up until recently. Status: Acute (2) Diaper dermatitis: Problem comment: Fairly severe skin breakdown in the perianal area and groin area. Appears that patient has difficulties maintaining hygiene. Diflucan and barrier cream. Evaluate and treat diarrhea. Address incontinence of stool Status: Acute (3) Morbid obesity with body mass index (BMI) greater than or equal to 50: Problem comment: - 01/07/23: wt. 221.7 kg, height 152.4 cm, BMI 95.5 kg/m2. Unable to utilize CT scanner if needed. Consult nutrition for weight loss program. Patient is open to calorie restricted diet in the hospital. Request family not bring in food and patient to work with our dietitian and follow Suzie restrictions. She is agreeable to this. Status: Acute (4) Fecal incontinence: Problem comment: This developed just prior to admission and is continued in the hospital. The perianal area is very inflamed and she has a hard time sensing whether she is having loose stools or passing gas. This is contributing to her dermatitis in the diaper area Status: Acute (5) Fistula involving buttock: Status: Acute Assessment and Plan: Mixed stool and serosang drainage expressed through rectal opening after entering wound for exploration through left gluteus with gloved hand. suspect abscessed Anal fistula. Recommend considering transferring patient to obtain imaging to further evaluate extent of wound. Patient wound benefit from surgical exploration and debridement. consulted with General Surgery, Dr. Short; Agrees patient wound benefit from imaging and surgery. (6) Intertriginous dermatitis associated with moisture: Status: Acute Plan Mixed stool and serosang drainage expressed through rectal opening after entering wound for exploration through left gluteus with gloved hand. suspect abscessed Anal fistula. Recommend considering transferring patient to obtain imaging to further evaluate extent of wound. Patient wound benefit from surgical exploration and debridement. consulted with General Surgery, Dr. Short; Agrees patient wound benefit from imaging and surgery. Wound care orders: continue offloading efforts and diligent Emily/incontinence care. Left gluteal wound: pack [id number] vashe soaked kerlix to tunneling, cover with abds. Change BID & PRN. Okay to use aquacel AG that is at bedside first, once supply is gone can switch to wet-to-dry. Aquacel at nursing station is set to 01/15/23. Remaining posterior stage 3 pressure ulcers: Cleanse with wound cleansing solution that is available, acetic acid or vashe. Pat dry. place aquacel ag to wound bed-cut to size of wound with minimal overlap. Cover with bordered foam bandage (mepilex is available). Change Daily and PRN. Anterior intertriginous MASD panus and groin folds: Apply 5min acetic acid gauze soak to folds. Remove gauze and pat dry. Crest with nystatin powder, dust off excess. Line folds with interdry, leaving a tail to allow for wicking to occur. Change daily and PRN if soiled. Left posterior knee: Cut interdry strip to line posterior knee fold, leaving tail for wicking to occur. For fissured/cracked edges apply zinc barrier cream. Change daily and PRN if soiled. Please call wound services at ext. [phone] if we can be of any further assistance.
--- NOTE | 2023-01-11 16:32 | PM.GSCN ---
History of Present Illness Consult details Date Seen: 01/11/23 Consult date: 01/11/23 Narrative: The patient is a 52-year-old female who presented to the emergency department on 01/07 with urinary incontinence. She stated that she was diagnosed with the urinary tract infection a week prior and started on antibiotic. Since then she had not been able to urinate other than spasms with incontinence. She stated that she had discomfort in the area. She initially appeared to be septic with tachycardia, hypotension and chills. White blood cell count was 25 creatinine was 2.8 and lactate was 2.1. Initial UA did not show infection. She was fitted to the hospital and started on antibiotics. Over the weekend she improved actually with improvement in her white blood cell count, creatinine and tachycardia. She was noted to have wounds during routine cares and so a wound consult was ordered. The wound nurse practitioner came to examine the patient and noted an opening in the right buttock which tracked 10 cm deep along the rectum and when palpated resulted in purulent fluid returned through the anus itself, concerning for perianal fistula. The patient states that she does have pain in the area but thought it was related to her bladder spasms. She has never had a perianal abscess previously. She states that she has variable bowel movements which are sometimes loose and sometimes firm. She has a history of morbid obesity with a BMI of 96, chronic kidney disease and diabetes. She lives independently, however does live with family. She gets around with a walker and a scooter. [facility] Medical History (Updated 01/11/23 @ 16:02 by Kim Owusu CNP) CKD (chronic kidney disease) stage 4, GFR 15-29 ml/min ?N18.4 - Chronic kidney disease, stage 4 (severe) (ICD-10) Mobility impaired ?Z74.09 - Other reduced mobility (ICD-10) Poor social situation ?Z60.9 - Problem related to social environment, unspecified (ICD-10) FH: RADHA-BSO (total abdominal hysterectomy and bilateral salpingo-oophorectomy) ?Z84.2 - Family history of other diseases of the genitourinary system (ICD-10) Uterine cancer ?C55 - Malignant neoplasm of uterus, part unspecified (ICD-10) OKSANA (obstructive sleep apnea) ?G47.33 - Obstructive sleep apnea (adult) (pediatric) (ICD-10) Diabetes ?E11.9 - Type 2 diabetes mellitus without complications (ICD-10) Morbid obesity with body mass index (BMI) greater than or equal to 50 ?E66.01 - Morbid (severe) obesity due to excess calories (ICD-10) Major depression ?F32.9 - Major depressive disorder, single episode, unspecified (ICD-10) Hypothyroid ?E03.9 - Hypothyroidism, unspecified (ICD-10) HTN (hypertension) ?I10 - Essential (primary) hypertension (ICD-10) Endometrial cancer ?C54.1 - Malignant neoplasm of endometrium (ICD-10) CKD (chronic kidney disease) stage 3, GFR 30-59 ml/min ?N18.30 - Chronic kidney disease, stage 3 unspecified (ICD-10) Anxiety ?F41.9 - Anxiety disorder, unspecified (ICD-10) Surgical History (Updated 01/07/23 @ 03:01 by Gurinder Blankenship DO) History of tonsillectomy ?Z90.89 - Acquired absence of other organs (ICD-10) History of cholecystectomy ?Z90.49 - Acquired absence of other specified parts of digestive tract (ICD-10) Social History What is your current living situation?: I presently have a place to live Problems where you live: no known problems Problems where you live details: None noted In the past 12 months, utilities in danger of being shut off: no In past 12 months, lack of transportation kept you from medical appts, meetings, work, or getting things needed for daily living: no In the past 12 mos, have been you worried that your food would run out before you had money to buy more?: never true In the past 12 mos, the food you bought just didn't last and you didn't have money to buy more?: never true Highest level of school completed/degree received: high school graduate Smoking Status: Never smoker Second hand tobacco smoke exposure: No How often do you have a drink containing alcohol: never How often do you have six or more drinks on one occasion: Never AUDIT-C Alcohol total score: 0 Non-prescribed substance use: denies use Caffeine: No How often does anyone, including family, friends and others, physically hurt you: never How often does anyone, including family, friends and others, insult or talk down to you: never How often does anyone, including family, friends and others, threaten you with harm: never How often does anyone, including family, friends and others, scream or curse at you: never service: No Meds Home Medications and Allergies Home Medications Medication Instructions Recorded Confirmed Type desoximetasone 0.25 % topical 1 applic topical BID PRN 01/07/23 01/07/23 History ointment gabapentin 100 mg capsule 200 mg PO BID 01/07/23 01/07/23 History hydrochlorothiazide 25 mg tablet 25 mg PO DAILY 01/07/23 01/07/23 History levothyroxine 100 mcg tablet 100 mcg PO DAILY 01/07/23 01/07/23 History losartan 25 mg tablet 25 mg PO DAILY 01/07/23 01/07/23 History omeprazole 20 mg capsule,delayed 20 mg PO Q48H 01/07/23 01/07/23 History release oxybutynin chloride 5 mg tablet 5 mg PO TID 01/07/23 01/07/23 History paroxetine HCl 40 mg tablet 40 mg PO DAILY 01/07/23 01/07/23 History pioglitazone 15 mg tablet 15 mg PO DAILY 01/07/23 01/07/23 History simvastatin 5 mg tablet 5 mg PO QPM 01/07/23 01/07/23 History Allergies Allergy/AdvReac Type Severity Reaction Status Date / Time citalopram [From Celexa] Allergy Severe Verified 01/06/23 20:35 Exam Narrative: Exam Narrative: General: Patient is lying in her hospital bed. She appears to be in no acute distress Musculoskeletal: Limited range of motion given patient's body habitus, requires assist of 3 to roll for my exam Skin: Her left buttock is ecchymotic, consistent with and concerning for a necrotizing infection. There is a wound measuring approximately 2 cm on the medial aspect of this through which cloudy thin drainage is expressed. Because of patient discomfort, I did not do a digital rectal exam though per the nurse practitioner who examined the patient prior to me, this may communicate with the anal canal/rectum Const: Vital Signs, click to edit/add: Vital Signs - 24 hr 01/10/23 19:00 01/10/23 22:51 01/10/23 22:51 Temperature 98.1 F 97.9 F Pulse Rate [Left P ulse Oximeter] 80 73 73 Pulse Rate [Left] 74 Respiratory Rate 20 20 20 Blood Pressure [Le ft Arm] 123/62 133/58 L Pulse Oximetry 97 97 Oxygen Delivery Me thod CPAP CPAP 01/11/23 03:00 01/11/23 08:15 01/11/23 08:15 Temperature 97 F L 97.3 F L Pulse Rate [Left P ulse Oximeter] 68 72 72 Pulse Rate [Left] Respiratory Rate 20 16 Blood Pressure [Le ft Arm] 127/57 L 130/69 Pulse Oximetry 99 97 Oxygen Delivery Me thod CPAP CPAP 01/11/23 11:00 Temperature 97.4 F L Pulse Rate [Left P ulse Oximeter] 84 Pulse Rate [Left] Respiratory Rate 20 Blood Pressure [Le ft Arm] Pulse Oximetry 96 Oxygen Delivery Me thod CPAP Results Labs Labs: Abnormal lab results 01/11/23 Range/Units 06:07 WBC 15.86 H (4.50-11.00) K/uL RBC 3.06 L (4.00-5.20) m/uL Hgb 8.5 L (12.0-16.0) gm/dL Hct 28.7 L (33.0-51.0) % MCHC 30 L (32-36) gm/dL RDW Coeff of Padmini 16.1 H (11.5-15.5) % Neut % (Auto) 82.5 H (42.0-72.0) % Lymph % (Auto) 7.5 L (20-44) % Neut # (Auto) 13.10 H (1.7-7.0) K/uL [place] # (Auto) 1.00 H (0.00-0.90) K/UL Abs Immat Gran (auto) 0.40 H (0.00-0.30) K/uL Potassium 3.5 L (3.6-5.1) mmol/L BUN 35 H (7-30) mg/dL Creatinine 2.1 H (0.5-1.5) mg/dL Glucose 131 H (60-115) mg/dL Calcium 7.8 L (8.4-10.6) mg/dL C-Reactive Protein 18.6 H (0.5-1.0) mg/dL Albumin 2.9 L (3.3-5.0) g/dL Diabetes panel 01/11/23 Range/Units 06:07 Sodium 139 (135-149) mmol/L Potassium 3.5 L (3.6-5.1) mmol/L Chloride 108 (96-114) mmol/L Carbon Dioxide 20 (20-32) mmol/L BUN 35 H (7-30) mg/dL Creatinine 2.1 H (0.5-1.5) mg/dL Glucose 131 H (60-115) mg/dL Calcium 7.8 L (8.4-10.6) mg/dL AST 20 (12-35) U/L ALT 21 (4-35) U/L Alkaline Phosphatase 91 (40-150) U/L Total Protein 6.9 (6.0-8.3) g/dL Albumin 2.9 L (3.3-5.0) g/dL Calcium panel 01/11/23 Range/Units 06:07 Calcium 7.8 L (8.4-10.6) mg/dL Albumin 2.9 L (3.3-5.0) g/dL Pituitary panel 01/11/23 Range/Units 06:07 Sodium 139 (135-149) mmol/L Potassium 3.5 L (3.6-5.1) mmol/L Chloride 108 (96-114) mmol/L Carbon Dioxide 20 (20-32) mmol/L BUN 35 H (7-30) mg/dL Creatinine 2.1 H (0.5-1.5) mg/dL Glucose 131 H (60-115) mg/dL Calcium 7.8 L (8.4-10.6) mg/dL Adrenal panel 01/11/23 Range/Units 06:07 Sodium 139 (135-149) mmol/L Potassium 3.5 L (3.6-5.1) mmol/L Chloride 108 (96-114) mmol/L Carbon Dioxide 20 (20-32) mmol/L BUN 35 H (7-30) mg/dL Creatinine 2.1 H (0.5-1.5) mg/dL Glucose 131 H (60-115) mg/dL Calcium 7.8 L (8.4-10.6) mg/dL Total Bilirubin 0.6 (0.1-1.5) mg/dL AST 20 (12-35) U/L ALT 21 (4-35) U/L Alkaline Phosphatase 91 (40-150) U/L Total Protein 6.9 (6.0-8.3) g/dL Albumin 2.9 L (3.3-5.0) g/dL CRP remains elevated at 18, creatinine in is still elevated at 2.1 but this is down from 2.8. White count is down to 15 from 20/5 but remains elevated. Assessment and Plan Assessment and plan (1) Fistula involving buttock: Problem comment: Mixed stool and serosang drainage expressed through rectal opening after entering wound for exploration through left gluteus. suspect abscessed Anal fistula. Recommend considering transferring patient to obtain imaging to further evaluate extent of wound, and possible surgical debridement. consulted with General Surgery, Dr. Short. fecal incont. complicates the issue. continue offloading efforts. [id number] vashe soaked kerlix BID, cover with abds. Change PRN Status: Acute (2) CKD (chronic kidney disease) stage 4, GFR 15-29 ml/min: Problem comment: Has acute on chronic kidney injury with EGFR in the low 20s. Status: Acute (3) Fecal incontinence: Problem comment: This developed just prior to admission and is continued in the hospital. The perianal area is very inflamed and she has a hard time sensing whether she is having loose stools or passing gas. This is contributing to her dermatitis in the diaper area Status: Acute (4) Mobility impaired: Problem comment: Due to obesity patient has very limited no mobility and likely needs additional help. She does have help at home. Currently unclear if this is adequate but patient reports historically she has been managing well with her mobility and personal hygiene up until recently. Status: Acute (5) RIOS (acute kidney injury): Problem comment: Acute kidney injury likely due to sepsis. continue to monitor. Slow modest improvement Status: Acute (6) Morbid obesity with body mass index (BMI) greater than or equal to 50: Problem comment: - 01/07/23: wt. 221.7 kg, height 152.4 cm, BMI 95.5 kg/m2. Unable to utilize CT scanner if needed. Consult nutrition for weight loss program. Patient is open to calorie restricted diet in the hospital. Request family not bring in food and patient to work with our dietitian and follow Suzie restrictions. She is agreeable to this. Status: Acute (7) OKSANA (obstructive sleep apnea): Problem comment: - continue with her home CPAP when asleep Status: Acute (8) Diabetes: Problem comment: Blood sugars well controlled. Monitor and adjust medications. Would benefit from GLP 1 inhibitor for weight loss as well. Status: Acute Plan The patient is a 50-year-old female with a BMI of 96 and an infectious type picture with an infection and wound of her left buttock concerning for perianal abscess with fistula. Clinically it looks similar to a necrotizing infection or severe abscess, however she is improving on antibiotics. She is too large for our CT scanner at this facility so further workup has not been able to be obtained. He had had difficulty transferring her because of limited availability at tertiary care centers locally, however I do think that this needs to be pursued as she would benefit from exam and debridement. Currently her BMI of 96 is too high to safely perform surgery at our hospital. This was discussed with Anesthesia as well. I discussed the case with the patient and the hospitalist. They are going to attempt transfer for further workup and definitive treatment. In the meantime continue antibiotics and supportive cares
[2023-01-11] MEDS: SIMVASTATIN 10 MG TABLET 5 MG PO (18:35)
[2023-01-11 20:55] VITALS: BP 131/61; PULSE 80; RESP 20; TEMP 35.9; O2SAT 98
[2023-01-11] MEDS: ENOXAPARIN 40 MG/0.4 ML INJ SUBCUT (21:11)
[2023-01-11] MEDS: ACETAMINOPHEN 325 MG TABLET PO (21:11)
[2023-01-11 23:00] VITALS: PULSE 70; RESP 20; TEMP 36.3; O2SAT 97
--- NOTE | 2023-01-11 23:21 | PC.NURSE ---
Pt bedbound due to habitus and deconditioning. Ceiling lift to recliner x1 with PT, OT, LATA, and primary RN. Pt is nervous and reluctant with repositioning for fear of pain and difficulty. Rodriguez draining cloudy yellow small amounts of urine. Pt was found to have wound in buttocks with tunneling- see Kim Cabral Wound Provider's note. Pt denies use of Oxycodone for dressing changes stating she doesn't want to have to worry about dependence of narcotics. Tylenol per MAR given prior to dressing change. Dressing change with use of Aquacel-Ag BID. Kim stated she inserted 2 half sheets of Aquacel-Ag. During dressing change bedding was soiled with stool, bloody purulent drainage. Once 1/2 piece of dressing was removed from pt's wound. Flushed with Acetic acid to ensure wound had no extra packing, damped gauze with acetic acid to clean surrounding area and then packed with 1/2 sheet of Aquacel-Ag and covered with ABD dressing.
[2023-01-12] MEDS: PIPERACILLIN/TAZOBACTAM 3.375 GM in 0.9 % SODIUM CHLORIDE Mini-bag 100 ML IVPB ×2 (00:27→06:18)
[2023-01-12 03:00] VITALS: PULSE 69; RESP 20; TEMP 35.7; O2SAT 99
[2023-01-12] MEDS: 0.9 % SODIUM CHLORIDE 250 ml IV (05:18)
[2023-01-12 05:45] LABS: Fecal Occult Blood* Invalid (Negative)
[2023-01-12 07:02] LABS: Chloride* 109 mmol/L (96-114); Potassium* 3.7 mmol/L (3.6-5.1); Sodium* 140 mmol/L (135-149)
[2023-01-12 07:05] LABS: Creatinine* 1.9 mg/dL (0.5-1.5); Est. Creatinine Clearance* 24.88; Estimated Glomerular Filt Rate 31 ml/min
[2023-01-12 07:06] LABS: Anion Gap 10 mEq/L (7-15); Blood Urea Nitrogen* 32 mg/dL (7-30); Calcium* 7.8 mg/dL (8.4-10.6); Carbon Dioxide* 21 mmol/L (20-32); Glucose* 121 mg/dL (60-115)
[2023-01-12 07:07] LABS: Basophils Percent Auto 0.2 % (0.0-3.0); Eosinophils Percent Auto 1.3 % (0.0-7.0); Hematocrit 30.6 % (33.0-51.0); Immature Granulocytes Pct Auto 3.3 %; Lymphocytes Percent Auto 9.7 % (20-44); Mean Corpuscular HGB Conc 29 gm/dL (32-36); Mean Corpuscular Hemoglobin 27 pg (26-34); Mean Corpuscular Volume 93 fL (80-100); Monocytes Percent Auto 7.4 % (0.0-11.0); Neutrophils Percent Auto 78.1 % (42.0-72.0); Platelet Count* 411 K/uL (140-440); RDW Coefficient of Variation % 16.1 % (11.5-15.5); Red Blood Count 3.29 m/uL (4.00-5.20)
[2023-01-12 07:22] LABS: C Reactive Protein* 14.3 mg/dL (0.5-1.0)
[2023-01-12 07:52] LABS: Slide Review Reflex No
[2023-01-12 08:36] VITALS: PULSE 66; RESP 20; TEMP 36.2; O2SAT 99
--- NOTE | 2023-01-12 09:43 | P.DS_ITS ---
DS: Providers Provider Date Seen: 01/12/23 Date of admission: 01/07/23 08:12 Primary care physician: Ryan Donaldson DO Admitting Clinician: Ricki Mckinney DO Attending Physician on discharge: Alvarado Sofia MD Date of Discharge: 01/12/23 DS: Diagnosis Discharge Diagnosis (1) Sepsis: Status: Acute Problem details: Patient admitted to the hospital on January 07 with syndrome of sepsis. The cause of the sepsis was uncertain. She was being treated for UTI with Keflex prior to admission. She also had fairly severe superficial skin infection apparent and the perianal area. She was treated with Zosyn and vancomycin initially. She had 1 of 2 blood cultures that were positive. This appears to be a contaminant, micrococcus. Clinically she improved and further evaluation of her perianal area showed that she had an abscess on her left buttock communicating with her rectum. (2) Necrotizing fasciitis: Status: Acute Problem details: Surgical consult felt this was probably necrotizing fasciitis in the perianal area (3) Perianal abscess: Status: Acute Problem details: . Anal abscess communicating with the rectum (4) Fistula involving buttock: Status: Acute Problem details: Perianal abscess communicating with the rectum on clinical examination (5) CKD (chronic kidney disease) stage 4, GFR 15-29 ml/min: Status: Acute Problem details: Has acute on chronic kidney injury with EGFR in the low 20s. Creatinine improved during the hospital stay (6) Fecal incontinence: Status: Acute Problem details: Fecal incontinence developed just prior to admission and is likely due to perianal abscess/fistula/necrotizing fasciitis (7) Oral ulceration: Status: Acute Problem details: Cause for this is unclear. Being treated for yeast which is present over much of her external body skin folds. Could be aphthous ulcers as well. Will also add Magic mouthwash. (8) Positive blood culture: Status: Acute Problem details: 1 of 2 blood cultures on admission is positive for Gram-positive cocci in clusters. Likely contaminant, micrococcus (9) RIOS (acute kidney injury): Status: Acute Problem details: Acute kidney injury likely due to sepsis. continue to monitor. Slow modest improvement (10) Diabetes: Status: Acute Problem details: Blood sugars well controlled. Monitor and adjust medications. Would benefit from GLP 1 inhibitor for weight loss as well. (11) Sleep apnea: Status: Acute Problem details: On home CPAP. Doing well DS: Summary Hospital Course Hospital Course: 52-year-old female with morbid obesity and diabetes living independently in the community admitted to the hospital with syndrome of sepsis. Initial evaluation did not show an obvious source of sepsis. There was concern about a UTI that was being treated just prior to admission and also concern about skin infection in the perianal area. She developed fecal incontinence. On admission she was found to have acute on chronic kidney injury. She was treated with vancomycin and Zosyn initially. Vancomycin was discontinued after 3 days. She clinically improved but it became apparent that her perianal infection was in abscess that communicated with the rectum as a fistula. Our general surgeon felt this could be necrotizing fasciitis in would need surgery. Due to patient's obesity she was too heavy T use our CT scanner and would not be able to have surgery here in [place]. Because of this she is transferred [facility] for ongoing care of her perianal abscess. Status at Discharge Functional status at discharge: bed bound Overall status at discharge: other (Resolution of sepsis with ongoing perianal abscess/fistula/necrotizing fasciitis) Time Spent with Patient Time attestation: Total time spent providing and/or coordinating discharge services: Time spent: Greater than 30 minutes Exam Narrative: Exam Narrative: She is alert and appears in no distress. She is tearful and anxious about transfer and possible surgery. Respirations are unlabored. Cardiovascular: S1, S2, regular rate and rhythm. Abdomen is soft. Const: Vital Signs, click to edit/add: Vital Signs - 24 hr 01/11/23 11:00 01/11/23 15:00 01/11/23 15:00 Temperature 97.4 F L 97.5 F L Pulse Rate [Left P ulse Oximeter] 84 84 88 Pulse Rate [Pulse Oximeter] Respiratory Rate 20 20 Blood Pressure [Ri ght Forearm] Pulse Oximetry 96 98 Oxygen Delivery Me thod CPAP CPAP 01/11/23 20:55 01/11/23 20:55 01/11/23 23:00 Temperature 96.6 F L 97.4 F L Pulse Rate [Left P ulse Oximeter] 80 80 Pulse Rate [Pulse Oximeter] 70 Respiratory Rate 20 20 20 Blood Pressure [Ri ght Forearm] 131/61 Pulse Oximetry 98 97 Oxygen Delivery Me thod CPAP CPAP 01/12/23 03:00 01/12/23 08:36 Temperature 96.3 F L 97.2 F L Pulse Rate [Left P ulse Oximeter] Pulse Rate [Pulse Oximeter] 69 66 Respiratory Rate 20 20 Blood Pressure [Ri ght Forearm] Pulse Oximetry 99 99 Oxygen Delivery Me thod CPAP CPAP Documenting provider has reviewed patient's vital signs: yes DS: Data Data Completed and Pending Labs on day of discharge: Labs from last 24 hours 01/12/23 01/11/23 06:27 23:00 WBC 12.90 H RBC 3.29 L Hgb 9.0 L Hct 30.6 L MCV 93 MCH 27 MCHC 29 L RDW Coeff of Padmini 16.1 H Plt Count 411 Neut % (Auto) 78.1 H Lymph % (Auto) 9.7 L [place] % (Auto) 7.4 Eos % (Auto) 1.3 Baso % (Auto) 0.2 Neut # (Auto) 10.10 H Lymph # (Auto) 1.30 [place] # (Auto) 1.00 H Eos # (Auto) 0.20 Baso # (Auto) 0.00 Abs Immat Gran (auto) 0.40 H Imm/Tot Granulo (auto) 3.3 Sodium 140 Potassium 3.7 Chloride 109 Carbon Dioxide 21 Anion Gap 10 BUN 32 H Creatinine 1.9 H Estimated Creat Clear 24.88 Estimated GFR 31 Glucose 121 H Calcium 7.8 L C-Reactive Protein 14.3 H Stool Occult Blood Invalid Preliminary micro results at discharge 01/09/23 08:06 Blood Culture - Preliminary Blood NO GROWTH AFTER 72 HOURS 01/06/23 22:40 Blood Culture - Preliminary Blood Gram positive cocci in cluster Discharge Plan Discharge Disposition: [facility] Date of Admission: 01/07/23 08:12 Attending Provider on Discharge: Grant Sofia Primary Care Provider: Ryan Donaldson Condition: Stable Discharge Orders: Transfer of Care to Other Hospital (ORDER); Ordered 01/12/23 Ordered By: Grant Sofia Oxygen: No Urinary Catheter: Yes Services not available here: bariatric equipment for imaging and surgery
[2023-01-12] MEDS: LOSARTAN POTASSIUM 50 MG TABLET 25 MG PO (09:53)
[2023-01-12] MEDS: GABAPENTIN 100 MG CAPSULE 200 MG PO (09:53)
[2023-01-12] MEDS: FLUCONAZOLE 100 MG TABLET 200 MG PO (09:53)
[2023-01-12] MEDS: POTASSIUM CHLORIDE 10 MEQ CAPSULE ER 20 MEQ PO (09:54)
[2023-01-12] MEDS: oxyBUTYnin chloride 5 MG TABLET PO (09:54)
[2023-01-12] MEDS: LEVOTHYROXINE 100 MCG TABLET PO (09:54)
[2023-01-12] MEDS: PARoxetine 20 MG TABLET 40 MG PO (09:54)
[2023-01-12] MEDS: hydroCHLOROthiazide 25 MG TABLET PO (09:55)
[2023-01-12] MEDS: PIOGLITAZONE HCL 15 MG TABLET PO (09:55)
[2023-01-12] MEDS: NYSTATIN POWDER 1 APPLIC TOPICAL (09:59)
[2023-01-12] MEDS: SODIUM CHLORIDE 0.9 % (FLUSH) 10 ML SYRINGE 5 ML IVF (09:59)
--- NOTE | 2023-01-12 13:19 | PC.NURSE ---
Pt. transferred to [facility] via [facility] at 1247. [id number] report given to Nurse Laurie at [facility] [address] 8510.
== END 2023-01-12 12:47 | disposition short-term general hospital (02) | DRG 871 ==
LOC: ED 23:51 → MEDSURG 01-07 01:06
PROVIDERS: Internal Medicine; Physician Assistant; Admitting Provider Student in an Organized Health Care Education/Training Program; Emergency Provider Student in an Organized Health Care Education/Training Program; PCP Family Medicine; Visit Provider Student in an Organized Health Care Education/Training Program
DX: A41.9 Sepsis, unspecified organism; L89.323 Pressure ulcer of left buttock, stage 3; M72.6 Necrotizing fasciitis; N17.9 Acute kidney failure, unspecified; L02.31 Cutaneous abscess of buttock; K61.0 Anal abscess; N18.4 Chronic kidney disease, stage 4 (severe); Z68.45 Body mass index [BMI] 70 or greater, adult; L97.821 Non-pressure chronic ulcer of other part of left lower leg limited to breakdown of skin; L89.151 Pressure ulcer of sacral region, stage 1; L89.312 Pressure ulcer of right buttock, stage 2; L24.A2 Irritant contact dermatitis due to fecal, urinary or dual incontinence; L30.4 Erythema intertrigo; I12.9 Hypertensive chronic kidney disease with stage 1 through stage 4 chronic kidney disease, or unspecified chronic kidney disease; E11.22 Type 2 diabetes mellitus with diabetic chronic kidney disease; E66.01 Morbid (severe) obesity due to excess calories; Z71.3 Dietary counseling and surveillance; Z79.84 Long term (current) use of oral hypoglycemic drugs; R15.9 Full incontinence of feces; G47.33 Obstructive sleep apnea (adult) (pediatric); Z99.89 Dependence on other enabling machines and devices; K11.20 Sialoadenitis, unspecified; Z74.09 Other reduced mobility; F32.9 Major depressive disorder, single episode, unspecified; K12.1 Other forms of stomatitis; R00.0 Tachycardia, unspecified; R53.1 Weakness
CPT/HCPCS: 36415; 51701; 71045; 80048; 80051; 80053; 80076; 81001; 82270; 82438; 82803; 82962; 83605; 83735; 83880; 84100; 84132; 84145; 84302; 84484; 84999; 85025; 85610; 86140; 87040; 87081; 87086; 87493; 87631; 93005; 97110; 97162; 97166; 97530; 97535; 99283; 99285; A9270; J1650; J2543; J3370; J7030; J7050; J7120

== ENCOUNTER 2023-05-25 14:19 | Outpatient (CLI) | payer OTHER, SELFPAY | END 2023-05-25 14:20 | disposition home or self-care (01) | LOC: WOUND 14:19 | PROVIDERS: PCP Family Medicine; Visit Provider Nurse Practitioner Family | DX: K60.5 Anorectal fistula (principal); R32 Unspecified urinary incontinence; E11.9 Type 2 diabetes mellitus without complications; E66.01 Morbid (severe) obesity due to excess calories; Z68.45 Body mass index [BMI] 70 or greater, adult; Z79.84 Long term (current) use of oral hypoglycemic drugs | CPT/HCPCS: G0463 ==

== ENCOUNTER 2023-06-10 12:24 | Outpatient (CLI) | payer OTHER, SELFPAY | END 2023-06-10 12:25 | disposition home or self-care (01) | LOC: WOUND 12:24 | PROVIDERS: PCP Family Medicine; Visit Provider Nurse Practitioner Family | DX: K60.5 Anorectal fistula (principal); R32 Unspecified urinary incontinence; E66.01 Morbid (severe) obesity due to excess calories; Z68.45 Body mass index [BMI] 70 or greater, adult | CPT/HCPCS: 51703; G0463 ==

== ENCOUNTER 2023-06-24 12:08 | Outpatient (CLI) | payer OTHER, SELFPAY ==
[2023-06-24 12:12] VITALS: BP 146/84; PULSE 83; RESP 16; TEMP 36.5; O2SAT 94; BMI 90.8
== END 2023-06-24 13:30 | disposition home or self-care (01) ==
PROVIDERS: Emergency Provider Internal Medicine; PCP Family Medicine; Visit Provider Internal Medicine
DX: Z46.6 Encounter for fitting and adjustment of urinary device (principal); Z02.83 Encounter for blood-alcohol and blood-drug test
CPT/HCPCS: 51702; 80307

== ENCOUNTER 2023-07-29 07:30 | Emergency (ER) | payer OTHER, SELFPAY ==
[2023-07-29 08:04] VITALS: BP 143/78; PULSE 88; RESP 20; TEMP 36; O2SAT 95; BMI 90.8
--- NOTE | 2023-07-29 08:21 | ED.FEMALEGU ---
HPI - Female Genitourinary General Chief complaint: Urogenital Problems, Female Stated complaint: Replace catheter Time Seen by Provider: 07/29/23 07:59 History of Present Illness HPI Narrative: Patient is a 52-year-old woman who has a chronic catheter in her bladder. She is obese and has difficult time having her catheter changed at the clinic. She presents today roughly 5 weeks after her last catheter change. He is having no symptoms but is simply time for a catheter change. No other concerns noted. Related Data Home Medications ?Medication ?Instructions ?Recorded ?Confirmed desoximetasone 0.25 % topical 1 applic topical BID PRN 01/07/23 01/07/23 ointment gabapentin 100 mg capsule 200 mg PO BID 01/07/23 01/07/23 hydrochlorothiazide 25 mg tablet 25 mg PO DAILY 01/07/23 01/07/23 levothyroxine 100 mcg tablet 100 mcg PO DAILY 01/07/23 01/07/23 losartan 25 mg tablet 25 mg PO DAILY 01/07/23 01/07/23 omeprazole 20 mg capsule,delayed 20 mg PO Q48H 01/07/23 01/07/23 release oxybutynin chloride 5 mg tablet 5 mg PO TID 01/07/23 01/07/23 paroxetine HCl 40 mg tablet 40 mg PO DAILY 01/07/23 01/07/23 pioglitazone 15 mg tablet 15 mg PO DAILY 01/07/23 01/07/23 simvastatin 5 mg tablet 5 mg PO QPM 01/07/23 01/07/23 Allergies Allergy/AdvReac Type Severity Reaction Status Date / Time citalopram [From Celexa] Allergy Severe Verified 06/24/23 12:16 lisinopril AdvReac Intermediate Verified 06/24/23 12:16 silver AdvReac Intermediate Verified 06/24/23 12:16 [From Tegaderm AG Mesh] mirtazapine [From Remeron] AdvReac Verified 06/24/23 12:16 ranitidine AdvReac Nausea Verified 06/24/23 12:16 Review of Systems Status of ROS: Reports: 10 or more systems reviewed and unremarkable except as noted in History and below [facility] Medical History Sleep apnea ?G47.30 - Sleep apnea, unspecified (ICD-10) Diaper dermatitis ?L22 - Diaper dermatitis (ICD-10) Sialadenitis ?K11.20 - Sialoadenitis, unspecified (ICD-10) Neutrophilic leukocytosis ?D72.9 - Disorder of white blood cells, unspecified (ICD-10) CKD (chronic kidney disease) stage 4, GFR 15-29 ml/min ?N18.4 - Chronic kidney disease, stage 4 (severe) (ICD-10) Mobility impaired ?Z74.09 - Other reduced mobility (ICD-10) Poor social situation ?Z60.9 - Problem related to social environment, unspecified (ICD-10) FH: RADHA-BSO (total abdominal hysterectomy and bilateral salpingo-oophorectomy) ?Z84.2 - Family history of other diseases of the genitourinary system (ICD-10) Uterine cancer ?C55 - Malignant neoplasm of uterus, part unspecified (ICD-10) OKSANA (obstructive sleep apnea) ?G47.33 - Obstructive sleep apnea (adult) (pediatric) (ICD-10) Diabetes ?E11.9 - Type 2 diabetes mellitus without complications (ICD-10) Morbid obesity with body mass index (BMI) greater than or equal to 50 ?E66.01 - Morbid (severe) obesity due to excess calories (ICD-10) Major depression ?F32.9 - Major depressive disorder, single episode, unspecified (ICD-10) Hypothyroid ?E03.9 - Hypothyroidism, unspecified (ICD-10) HTN (hypertension) ?I10 - Essential (primary) hypertension (ICD-10) Endometrial cancer ?C54.1 - Malignant neoplasm of endometrium (ICD-10) CKD (chronic kidney disease) stage 3, GFR 30-59 ml/min ?N18.30 - Chronic kidney disease, stage 3 unspecified (ICD-10) Anxiety ?F41.9 - Anxiety disorder, unspecified (ICD-10) Surgical History History of tonsillectomy ?Z90.89 - Acquired absence of other organs (ICD-10) History of cholecystectomy ?Z90.49 - Acquired absence of other specified parts of digestive tract (ICD-10) Social History What is your current living situation?: I presently have a place to live Problems where you live: no known problems Problems where you live details: None noted In the past 12 months, utilities in danger of being shut off: no In past 12 months, lack of transportation kept you from medical appts, meetings, work, or getting things needed for daily living: no In the past 12 mos, have been you worried that your food would run out before you had money to buy more?: never true In the past 12 mos, the food you bought just didn't last and you didn't have money to buy more?: never true Highest level of school completed/degree received: high school graduate Smoking Status: Never smoker Second hand tobacco smoke exposure: No How often do you have a drink containing alcohol: never How often do you have six or more drinks on one occasion: Never AUDIT-C Alcohol total score: 0 Non-prescribed substance use: denies use Caffeine: No How often does anyone, including family, friends and others, physically hurt you: never How often does anyone, including family, friends and others, insult or talk down to you: never How often does anyone, including family, friends and others, threaten you with harm: never How often does anyone, including family, friends and others, scream or curse at you: never service: No Exam Narrative: Exam Narrative: EXAM GENERAL: Patient appears obese. EYES: No scleral icterus. LYMPH: No supraclavicular or cervical lymphadenopathy. SKIN: Visible skin seen during exam normal or with benign process only. EXT: No dependent lower extremity pedal edema. HEART: Regular rate and rhythm with no murmurs, rubs, or gallops. LUNGS: Clear to auscultation bilaterally with no crackles or wheezes. ABD: Soft, non tender, non distended. PSYCH: Good eye contact, speech is not pressured. Const: Vital Signs, click to edit/add: Vital Signs - 24 hr 07/29/23 08:04 Temperature 96.8 F L Pulse Rate [Pulse Oximeter] 88 Respiratory Rate 20 Blood Pressure [Ri ght Forearm] 143/78 H Pulse Oximetry 95 Oxygen Delivery Me thod Room Air Course Course ED Course: Patient seen and examined. Vital Signs Vital signs: Initial Vital Signs Temperature 96.8 F L 07/29/23 08:04 Temperature Source Temporal Artery Scan 07/29/23 08:04 Pulse Rate 88 07/29/23 08:04 Respiratory Rate 20 07/29/23 08:04 Blood Pressure 143/78 H 07/29/23 08:04 Blood Pressure Mean 99 07/29/23 08:04 Blood Pressure Position Sitting 07/29/23 08:04 Pulse Oximetry 95 07/29/23 08:04 Oxygen Delivery Method Room Air 07/29/23 08:04 Vital Signs Temperature 96.8 F L 07/29/23 08:04 Pulse Rate 88 07/29/23 08:04 Respiratory Rate 20 07/29/23 08:04 Blood Pressure 143/78 H 07/29/23 08:04 Pulse Oximetry 95 07/29/23 08:04 Oxygen Delivery Method Room Air 07/29/23 08:04 Temperature 96.8 F L 07/29/23 08:04 Pulse Rate 88 07/29/23 08:04 Respiratory Rate 20 07/29/23 08:04 Blood Pressure 143/78 H 07/29/23 08:04 Pulse Oximetry 95 07/29/23 08:04 Oxygen Delivery Method Room Air 07/29/23 08:04 MDM - Female Genitourinary MDM Narrative Medical decision making narrative: Patient is a 52-year-old woman comes in for catheter change as she is obese and needs bariatric care. She has no other complaints. Her catheter is changed for her and she will follow-up with her primary physician. Discharge Plan Discharge Clinical Impression: Urinary catheter change required Patient Disposition: Home, Self-Care Condition: Stable Additional Instructions: Continue current care Follow-up with your doctor as directed. Activity Level: No Restrictions Discharge Diet: Regular Prescriptions: No Action pioglitazone 15 mg tablet 15 mg PO DAILY levothyroxine 100 mcg tablet 100 mcg PO DAILY simvastatin 5 mg tablet 5 mg PO QPM desoximetasone 0.25 % ointment 1 applic topical BID PRN losartan 25 mg tablet 25 mg PO DAILY omeprazole 20 mg capsule,delayed release(DR/EC) 20 mg PO Q48H hydrochlorothiazide 25 mg tablet 25 mg PO DAILY gabapentin 100 mg capsule 200 mg PO BID paroxetine HCl 40 mg tablet 40 mg PO DAILY oxybutynin chloride 5 mg tablet 5 mg PO TID Follow Up/Referrals: Sonja Hubbard MD [Primary Care Provider] - Stand Alone Forms: [facility] Info Instructions
--- NOTE | 2023-07-29 12:05 | ED.NURSE ---
Pt presented to ER to have kendall catheter replaced. Pt had summer appt scheduled with urology which had to be rescheduled until this fall. Pt drove own motorized scooter down to OB unit where ceiling lift was used to lift Pt to geriatric bed. Six staff did assist to cleanse Pt of incontinent stool and to replace 16F catheter. Pt did tolerate lying flat well however some cleansing of the bottom area was painful to Pt. Old catheter tubing was cloudy however new urine output was clear. Pt was provided new clean pants as own pants had been soiled. Pt old wound to R buttock was found healed; abdominal folds were found to be reddened. Pt drove independently from OB unit and out of building back to home.
--- NOTE | 2023-10-13 15:52 | ED.NURSE ---
Contacted [facility] about a care plan for antonina regarding her catheter changes. Dr. Waller's nurse said that she would talk to Dr. Ambrosio about a plan for her but said that Antonina has been refusing their recommendations. Dr. Ambrosio nurse said that they tried to arrange transport to get Antonina to Urology in [place] but Antonina refuses the transportation. She also refuses to have Home Care involved. Waiting to hear back from [facility] about a care plan for these catheter changes. Enamel Machine Operator has been speaking with the patient. See Enamel Machine Operator notes.
== END 2023-07-29 12:03 | disposition home or self-care (01) ==
LOC: ED 08:33
PROVIDERS: Emergency Provider Internal Medicine; PCP Family Medicine
DX: Z46.6 Encounter for fitting and adjustment of urinary device (principal)
CPT/HCPCS: 51702; 99282; 99283

== ENCOUNTER 2023-08-13 19:57 | Inpatient (IN) | payer OTHER, SELFPAY ==
[2023-08-13 20:10] VITALS: BP 141/75; PULSE 105; RESP 20; TEMP 36.7; O2SAT 96; BMI 90.8
--- NOTE | 2023-08-13 20:23 | ED_ITS ---
HPI - Skin/Abscess/Foreign Bdy General Date Seen: 08/13/23 Chief complaint: Lower Extremity Swelling Stated complaint: catheter came out, swollen L leg Time Seen by Provider: 08/13/23 20:01 Source: patient and family Mode of arrival: ambulatory Limitations: physical limitation History of Present Illness HPI narrative: 53-year-old female with the extreme morbid obesity. Presents here with the 2 issues, problem 1. Her catheter fell out, she is in an out where catheter changes. It is somewhat of a chore to do this in the clinic in generally comes to the ER. Catheter fell out today, and she is requesting a new catheter. New Problem 2. Her left leg is swollen, red, and painful. She feels that she has cellulitis she is unsure if she has had a fever at home, as they do not have a thermometer, but has felt warm, she has felt ill on and off but attributes that to taking monjauro injections. She was vomiting some today, and has been on the injections for the last 4 weeks, last week she had a similar episode 2-3 days after her injection. She has no history of pulmonary emboli, DVTs, she does have a history of previous necrotizing fasciitis. She is unsure if she has ever had MRSA, denies a cough , sore throat, shortness of breath, chest pain is taking no other medications for her issue. Related Data Home Medications ?Medication ?Instructions ?Recorded ?Confirmed desoximetasone 0.25 % topical 1 applic topical BID PRN 01/07/23 01/07/23 ointment gabapentin 100 mg capsule 200 mg PO BID 01/07/23 01/07/23 hydrochlorothiazide 25 mg tablet 25 mg PO DAILY 01/07/23 01/07/23 levothyroxine 100 mcg tablet 100 mcg PO DAILY 01/07/23 01/07/23 losartan 25 mg tablet 25 mg PO DAILY 01/07/23 01/07/23 omeprazole 20 mg capsule,delayed 20 mg PO Q48H 01/07/23 01/07/23 release oxybutynin chloride 5 mg tablet 5 mg PO TID 01/07/23 01/07/23 paroxetine HCl 40 mg tablet 40 mg PO DAILY 01/07/23 01/07/23 pioglitazone 15 mg tablet 15 mg PO DAILY 01/07/23 01/07/23 simvastatin 5 mg tablet 5 mg PO QPM 01/07/23 01/07/23 Allergies Allergy/AdvReac Type Severity Reaction Status Date / Time citalopram [From Celexa] Allergy Severe Verified 06/24/23 12:16 lisinopril AdvReac Intermediate Verified 06/24/23 12:16 silver AdvReac Intermediate Verified 06/24/23 12:16 [From Tegaderm AG Mesh] mirtazapine [From Remeron] AdvReac Verified 06/24/23 12:16 ranitidine AdvReac Nausea Verified 06/24/23 12:16 Review of Systems Status of ROS: Reports: 10 or more systems reviewed and unremarkable except as noted in History and below [facility] Medical History Sleep apnea ?G47.30 - Sleep apnea, unspecified (ICD-10) Diaper dermatitis ?L22 - Diaper dermatitis (ICD-10) Sialadenitis ?K11.20 - Sialoadenitis, unspecified (ICD-10) Neutrophilic leukocytosis ?D72.9 - Disorder of white blood cells, unspecified (ICD-10) CKD (chronic kidney disease) stage 4, GFR 15-29 ml/min ?N18.4 - Chronic kidney disease, stage 4 (severe) (ICD-10) Mobility impaired ?Z74.09 - Other reduced mobility (ICD-10) Poor social situation ?Z60.9 - Problem related to social environment, unspecified (ICD-10) FH: RADHA-BSO (total abdominal hysterectomy and bilateral salpingo-oophorectomy) ?Z84.2 - Family history of other diseases of the genitourinary system (ICD-10) Uterine cancer ?C55 - Malignant neoplasm of uterus, part unspecified (ICD-10) OKSANA (obstructive sleep apnea) ?G47.33 - Obstructive sleep apnea (adult) (pediatric) (ICD-10) Diabetes ?E11.9 - Type 2 diabetes mellitus without complications (ICD-10) Morbid obesity with body mass index (BMI) greater than or equal to 50 ?E66.01 - Morbid (severe) obesity due to excess calories (ICD-10) Major depression ?F32.9 - Major depressive disorder, single episode, unspecified (ICD-10) Hypothyroid ?E03.9 - Hypothyroidism, unspecified (ICD-10) HTN (hypertension) ?I10 - Essential (primary) hypertension (ICD-10) Endometrial cancer ?C54.1 - Malignant neoplasm of endometrium (ICD-10) CKD (chronic kidney disease) stage 3, GFR 30-59 ml/min ?N18.30 - Chronic kidney disease, stage 3 unspecified (ICD-10) Anxiety ?F41.9 - Anxiety disorder, unspecified (ICD-10) Surgical History History of tonsillectomy ?Z90.89 - Acquired absence of other organs (ICD-10) History of cholecystectomy ?Z90.49 - Acquired absence of other specified parts of digestive tract (ICD- 10) Social History What is your current living situation?: I presently have a place to live Problems where you live: no known problems Problems where you live details: None noted In the past 12 months, utilities in danger of being shut off: no In past 12 months, lack of transportation kept you from medical appts, meetings, work, or getting things needed for daily living: no In the past 12 mos, have been you worried that your food would run out before you had money to buy more?: never true In the past 12 mos, the food you bought just didn't last and you didn't have money to buy more?: never true Highest level of school completed/degree received: high school graduate Smoking Status: Never smoker Do you use any of these nicotine containing products: None Second hand tobacco smoke exposure: No How often do you have a drink containing alcohol: never How often do you have six or more drinks on one occasion: Never AUDIT-C Alcohol total score: 0 Non-prescribed substance use: denies use Caffeine: No How often does anyone, including family, friends and others, physically hurt you : never How often does anyone, including family, friends and others, insult or talk down to you: never How often does anyone, including family, friends and others, threaten you with harm: never How often does anyone, including family, friends and others, scream or curse at you: never service: No Exam Narrative: Exam Narrative: I and her resting in room 5 she is in no apparent distress, speaking to me normally, oropharynx is normal, neck is supple, chest is good air entry bilaterally with no wheezing crackles noted her heart sounds are normal, her abdomen is very large but there is no tenderness to palpation, left lower extremity shows redness, which I have mapped out on area of proximally 10 x 6 cm both anterior and posterior early over her mid to distal left leg. It does not encompass the foot, appears to rise over a slightly scaly area. He is sore, and feels warm. Consistent with cellulitis. Const: Vital Signs, click to edit/add: Vital Signs - 24 hr 08/13/23 20:10 08/13/23 21:04 Temperature 98.0 F 98.0 F Pulse Rate [Pulse Oximeter] 105 H Respiratory Rate 20 Blood Pressure [Ri ght Upper Arm] 141/75 H Pulse Oximetry 96 Oxygen Delivery Me thod Room Air Documenting provider has reviewed patient's vital signs: yes Course Course ED Course: I discussed with the patient and the caregiver, that her white count was elevated her lactic acid is elevated these are all hard Ringer's of infection, given what I see in her rather immobile status I think it would be reasonable in the setting of cellulitis, given the fact she does have a history of previous necrotizing fasciitis that we need to get on this sooner rather than later. She was agreeable to admission after this discussion Consultations Consultation #1: Shoaib came down saw patient. Admission is offered, after labs I went back in and talked to patient she agreed to be admitted, Vital Signs Vital signs: Initial Vital Signs Temperature 98.0 F 08/13/23 20:10 Temperature Source Temporal Artery Scan 08/13/23 20:10 Pulse Rate 105 H 08/13/23 20:10 Respiratory Rate 20 08/13/23 20:10 Blood Pressure 141/75 H 08/13/23 20:10 Blood Pressure Mean 97 08/13/23 20:10 Blood Pressure Position Sitting 08/13/23 20:10 Pulse Oximetry 96 08/13/23 20:10 Oxygen Delivery Method Room Air 08/13/23 20:10 Vital Signs Temperature 98.0 F 08/13/23 20:10 Pulse Rate 105 H 08/13/23 20:10 Respiratory Rate 20 08/13/23 20:10 Blood Pressure 141/75 H 08/13/23 20:10 Pulse Oximetry 96 08/13/23 20:10 Oxygen Delivery Method Room Air 08/13/23 20:10 Temperature 98.0 F 08/13/23 21:04 Pulse Rate 105 H 08/13/23 20:10 Respiratory Rate 20 08/13/23 20:10 Blood Pressure 141/75 H 08/13/23 20:10 Pulse Oximetry 96 08/13/23 20:10 Oxygen Delivery Method Room Air 08/13/23 20:10 Medications Administered Medications: Discontinued Medications Generic Name Dose Route Start Last Admin Trade Name Freq PRN Reason Stop Dose Admin Acetaminophen 1,000 mg 08/13/23 20:39 08/13/23 21:04 Acetaminophen 500 Mg Tablet PO 08/13/23 20:40 1,000 mg ONCE ONE Administration MDM - Skin/Abscess/Foreign Bdy MDM Narrative Medical decision making narrative: Differential diagnosis include but are not limited to contact dermatitis, allergic reaction, shingles, impetigo, seborrheic dermatitis, Juan Miguel Casa syndrome, ITP, meningococcus, HSP Differential Diagnosis Differential diagnosis: Likely abscess of skin or subcutaneous tissue, viral exanthem, dermatophytosis, urticaria, herpes zoster, allergic reaction to drug, cellulitis, eczema, insect bites, impetigo and contact dermatitis Medical Records Attestation: I reviewed the patient's medical records. Lab Data Attestation: I reviewed the patient's lab results. Labs: Lab Results 08/13/23 08/13/23 08/13/23 Range/Units 21:06 21:15 21:15 WBC 15.06 H (4.50-11.00) K/uL RBC 4.15 (4.00-5.20) m/uL Hgb 11.1 L (12.0-16.0) gm/dL Hct 37.4 (33.0-51.0) % MCV 90 (80-100) fL MCH 27 (26-34) pg MCHC 30 L (32-36) gm/dL RDW Coeff of Padmini 17.0 H (11.5-15.5) % Plt Count 454 H (140-440) K/uL Neut % (Auto) 85.6 H (42.0-72.0) % Lymph % (Auto) 7.0 L (20-44) % [place] % (Auto) 5.0 (0.0-11.0) % Eos % (Auto) 1.4 (0.0-7.0) % Baso % (Auto) 0.1 (0.0-3.0) % Neut # (Auto) 12.90 H (1.7-7.0) K/uL Lymph # (Auto) 1.10 (0.90-2.90) K/uL [place] # (Auto) 0.80 (0.00-0.90) K/UL Eos # (Auto) 0.20 (0.00-0.50) K/uL Baso # (Auto) 0.00 (0.00-0.30) K/uL Abs Immat Gran (auto) 0.10 (0.00-0.30) K/uL Imm/Tot Granulo (auto) 0.9 % D-Dimer Quant (PE/DVT) 1.50 H (0.00-0.50) ug/ml Sodium 139 (135-149) mmol/L Potassium 3.6 (3.6-5.1) mmol/L Chloride 106 (96-114) mmol/L Carbon Dioxide 21 (20-32) mmol/L Anion Gap 12 (7-15) mEq/L BUN 23 (7-30) mg/dL Creatinine 1.5 (0.5-1.5) mg/dL Estimated Creat Clear 31.15 Estimated GFR 41 ml/min Glucose 182 H (60-115) mg/dL Lactate 3.2 H (0.5-1.9) mmol/L Calcium 8.7 (8.4-10.6) mg/dL C-Reactive Protein 7.7 H (0.5-1.0) mg/dL Procalcitonin 0.66 H Cancelled (<0.50) ng/mL Lab Acknowledgement Test Added Discharge Plan Discharge Clinical Impression: Cellulitis and abscess of left leg, Diabetes, Urinary incontinence, Mobility impaired, Morbid obesity, Sepsis syndrome Patient Disposition: Admitted As Observation Prescriptions: No Action pioglitazone 15 mg tablet 15 mg PO DAILY levothyroxine 100 mcg tablet 100 mcg PO DAILY simvastatin 5 mg tablet 5 mg PO QPM desoximetasone 0.25 % ointment 1 applic topical BID PRN losartan 25 mg tablet 25 mg PO DAILY omeprazole 20 mg capsule,delayed release(DR/EC) 20 mg PO Q48H hydrochlorothiazide 25 mg tablet 25 mg PO DAILY gabapentin 100 mg capsule 200 mg PO BID paroxetine HCl 40 mg tablet 40 mg PO DAILY oxybutynin chloride 5 mg tablet 5 mg PO TID Follow Up/Referrals: Sonja Hubbard MD [Staff Physician] -
[2023-08-13 21:00] VITALS: O2SAT 97
[2023-08-13 21:04] VITALS: TEMP 36.7
[2023-08-13] MEDS: ACETAMINOPHEN 500 MG TABLET 1000 MG PO (21:04)
[2023-08-13 21:28] LABS: Lactate* 3.2 mmol/L (0.5-1.9)
[2023-08-13 21:31] LABS: Basophils Percent Auto 0.1 % (0.0-3.0); Eosinophils Percent Auto 1.4 % (0.0-7.0); Hematocrit 37.4 % (33.0-51.0); Hemoglobin* 11.1 gm/dL (12.0-16.0); Immature Granulocytes Pct Auto 0.9 %; Mean Corpuscular HGB Conc 30 gm/dL (32-36); Mean Corpuscular Hemoglobin 27 pg (26-34); Mean Corpuscular Volume 90 fL (80-100); Neutrophils Percent Auto 85.6 % (42.0-72.0); Platelet Count* 454 K/uL (140-440); Red Blood Count 4.15 m/uL (4.00-5.20); White Blood Count* 15.06 K/uL (4.50-11.00)
[2023-08-13 21:34] LABS: Slide Review Reflex No
[2023-08-13 21:44] LABS: Chloride* 106 mmol/L (96-114)
[2023-08-13 21:45] LABS: Potassium* 3.6 mmol/L (3.6-5.1); Sodium* 139 mmol/L (135-149)
[2023-08-13 21:47] LABS: Creatinine* 1.5 mg/dL (0.5-1.5); Est. Creatinine Clearance* 31.15; Estimated Glomerular Filt Rate 41 ml/min
[2023-08-13 21:48] LABS: Anion Gap 12 mEq/L (7-15); Blood Urea Nitrogen* 23 mg/dL (7-30); Calcium* 8.7 mg/dL (8.4-10.6); Carbon Dioxide* 21 mmol/L (20-32); Glucose* 182 mg/dL (60-115)
[2023-08-13 21:51] LABS: C Reactive Protein* 7.7 mg/dL (0.5-1.0)
[2023-08-13 22:05] LABS: Procalcitonin* 0.66 ng/mL (<0.50)
[2023-08-13] MEDS: CEFAZOLIN 1 GM inj IVP (22:20)
[2023-08-13] MEDS: 0.9 % SODIUM CHLORIDE 1000 ml 1,000 ML IV (22:20)
--- NOTE | 2023-08-13 22:22 | P.IMHP_ITS ---
Hospitalist- H&P: HPI History of Present Illness Date Seen: 08/13/23 Chief complaint: catheter came out, swollen L leg Narrative: Antonina Elizabeth is a 53 year old female who presented with her to the emergency room this evening for concerns of left lower extremity erythema and discomfort. She has noted symptoms over the past couple of days, has had associated chills but has not been able to check her temperature. In addition to her left lower extremity, per Rodriguez catheter followed earlier today. She has had this for many months for history of chronic urinary retention. She has outpatient follow-up with Urology scheduled. ER course and findings: - white blood count of 15 with 86% PMNs, lactate 3.2, pulse 105 - erythema and warmth of left lower extremity, Ancef started in the emergency room - Rodriguez catheter replaced History is are updated below, PCP has previously been Dr. Castro at the [facility] in [place]. 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 last fall. She was hospitalized and then treated at [facility] from December to April. She is nonambulatory, does do pivot transfers with 1 assist at home with her . She has assistance from her [id number] and dybdokj-ox-cmy as well. Review of Systems Narrative: - Intermittent nausea this morning, believes this is secondary to her Mounjaro, recently started for DM2 and weight loss - chronic constipation, typically has a BM twice per week - flare of intertrigo under abdominal pannus - wearing her home CPAP at night [facility] Medical History (Updated 08/14/23 @ 00:08 by Coby Khan MD) CKD (chronic kidney disease) stage 3, GFR 30-59 ml/min ?N18.30 - Chronic kidney disease, stage 3 unspecified (ICD-10) Fistula involving buttock ?L98.8 - Other specified disorders of the skin and subcutaneous tissue (ICD- 10) Sleep apnea ?G47.30 - Sleep apnea, unspecified (ICD-10) Neutrophilic leukocytosis ?D72.9 - Disorder of white blood cells, unspecified (ICD-10) Mobility impaired ?Z74.09 - Other reduced mobility (ICD-10) Uterine cancer ?C55 - Malignant neoplasm of uterus, part unspecified (ICD-10) OKSANA (obstructive sleep apnea) ?G47.33 - Obstructive sleep apnea (adult) (pediatric) (ICD-10) Diabetes ?E11.9 - Type 2 diabetes mellitus without complications (ICD-10) Morbid obesity with body mass index (BMI) greater than or equal to 50 ?E66.01 - Morbid (severe) obesity due to excess calories (ICD-10) Major depression ?F32.9 - Major depressive disorder, single episode, unspecified (ICD-10) Hypothyroid ?E03.9 - Hypothyroidism, unspecified (ICD-10) HTN (hypertension) ?I10 - Essential (primary) hypertension (ICD-10) Endometrial cancer ?C54.1 - Malignant neoplasm of endometrium (ICD-10) Anxiety ?F41.9 - Anxiety disorder, unspecified (ICD-10) Surgical History (Updated 08/13/23 @ 22:24 by Coby Khan MD) S/P RADHA-BSO ?Z90.710 - Acquired absence of both cervix and uterus (ICD-10) ?Z90.722 - Acquired absence of ovaries, bilateral (ICD-10) ?Z90.79 - Acquired absence of other genital organ(s) (ICD-10) History of tonsillectomy ?Z90.89 - Acquired absence of other organs (ICD-10) History of cholecystectomy ?Z90.49 - Acquired absence of other specified parts of digestive tract (ICD- 10) Social History (Updated 08/14/23 @ 00:08 by Coby Khan MD) Narrative: Lives with , weyhzhq-wl-[id number] and fhhagc-li-rsa locally. Uses a motorized scooter for mobility. Takes a few steps and pivot transfers at home. Former smoker. No alcohol use. Not currently working outside the home. Requests DNR/DNI status. What is your current living situation?: I presently have a place to live Problems where you live: no known problems Problems where you live details: None noted In the past 12 months, utilities in danger of being shut off: no In past 12 months, lack of transportation kept you from medical appts, meetings, work, or getting things needed for daily living: no In the past 12 mos, have been you worried that your food would run out before you had money to buy more?: never true In the past 12 mos, the food you bought just didn't last and you didn't have money to buy more?: never true Highest level of school completed/degree received: high school graduate Smoking Status: Never smoker Do you use any of these nicotine containing products: None Second hand tobacco smoke exposure: No How often do you have a drink containing alcohol: never How often do you have six or more drinks on one occasion: Never AUDIT-C Alcohol total score: 0 Non-prescribed substance use: denies use Caffeine: No How often does anyone, including family, friends and others, physically hurt you : never How often does anyone, including family, friends and others, insult or talk down to you: never How often does anyone, including family, friends and others, threaten you with harm: never How often does anyone, including family, friends and others, scream or curse at you: never service: No Meds Home Medications and Allergies Home Medications ?Medication ?Instructions ?Recorded ?Confirmed ?Type desoximetasone 0.25 % topical 1 applic topical BID PRN 01/07/23 01/07/23 History ointment gabapentin 100 mg capsule 200 mg PO BID 01/07/23 01/07/23 History hydrochlorothiazide 25 mg tablet 25 mg PO DAILY 01/07/23 01/07/23 History levothyroxine 100 mcg tablet 100 mcg PO DAILY 01/07/23 01/07/23 History losartan 25 mg tablet 25 mg PO DAILY 01/07/23 01/07/23 History omeprazole 20 mg capsule,delayed 20 mg PO Q48H 01/07/23 01/07/23 History release oxybutynin chloride 5 mg tablet 5 mg PO TID 01/07/23 01/07/23 History paroxetine HCl 40 mg tablet 40 mg PO DAILY 01/07/23 01/07/23 History pioglitazone 15 mg tablet 15 mg PO DAILY 01/07/23 01/07/23 History simvastatin 5 mg tablet 5 mg PO QPM 01/07/23 01/07/23 History Allergies Allergy/AdvReac Type Severity Reaction Status Date / Time citalopram [From Celexa] Allergy Severe Verified 06/24/23 12:16 lisinopril AdvReac Intermediate Verified 06/24/23 12:16 silver AdvReac Intermediate Verified 06/24/23 12:16 [From Tegaderm AG Mesh] mirtazapine [From Remeron] AdvReac Verified 06/24/23 12:16 ranitidine AdvReac Nausea Verified 06/24/23 12:16 Exam Narrative: Exam Narrative: GEN: Alert and oriented, laying in bed and answering questions appropriately HEENT: EOMIs bilaterally, no scleral icterus CV: Regular rate and rhythm with distant heart sounds, soft systolic murmur noted without concerning features R: LCTA bilaterally without concerning wheezing Ab: Protuberant, soft, tolerates palpation Back/GI: No evidence of recurrence of perianal cellulitis Ext: Nonpitting edema of bilateral lower extremities Skin: Erythema of left lower extremity laterally, outlined. This area is warm and mildly tender to palpation. There are vesicular lesions distally Neuro: No focal deficits, no resting tremor Psych: Appropriate Const: Vital Signs, click to edit/add: Vital Signs - 24 hr 08/13/23 20:10 08/13/23 21:04 Temperature 98.0 F 98.0 F Pulse Rate [Pulse Oximeter] 105 H Respiratory Rate 20 Blood Pressure [Ri ght Upper Arm] 141/75 H Pulse Oximetry 96 Oxygen Delivery Me thod Room Air Hospitalist - H&P: Result Labs Labs: Short CBC 08/13/23 Range/Units 21:15 WBC 15.06 H (4.50-11.00) K/uL Hgb 11.1 L (12.0-16.0) gm/dL Hct 37.4 (33.0-51.0) % Plt Count 454 H (140-440) K/uL BMP 08/13/23 21:15 Sodium 139 Potassium 3.6 Chloride 106 Carbon Dioxide 21 BUN 23 Creatinine 1.5 Glucose 182 H Calcium 8.7 Assessment and Plan Assessment and plan (1) Sepsis syndrome: Problem comment: - as evidenced by tachycardia, elevated WBC, elevated lactate, LLE cellulitis - blood cultures pending - Ancef initiated in ED (08/12), will continue this, blood cultures pending - IV fluid bolus given, heart rate has improved upon arrival to the floor and blood pressure remained stable Status: Acute (2) Cellulitis and abscess of left leg: Problem comment: - LLE, Ancef initiated 08/12, will continue Status: Acute (3) CKD (chronic kidney disease) stage 3, GFR 30-59 ml/min: Problem comment: - baseline GFR in the 30s Status: Acute (4) Hypothyroid: Problem comment: - TSH wnl 10/07, will recheck and continue home dose of Levothyroxine Status: Acute (5) Sleep apnea: Problem comment: - home CPAP at night Status: Acute (6) Intertriginous dermatitis associated with moisture: Problem comment: - Diflucan orally x3 days - continue antifungal powder, keep area dry Status: Acute (7) Diabetes: Problem comment: - last A1C in [facility] chart is 5.4 (11/2022) - repeat A1C, Accu-Cheks Status: Acute (8) Anemia: Problem comment: - no evidence of acute bleeding - baseline outpatient hemoglobin 9-11 per chart review, current hemoglobin 11.1 Status: Acute Plan - per above - updated at bedside, questions answered - therapies ordered, patient is high risk for deconditioning; she is not interested in SNF placement
[2023-08-13 23:03] VITALS: BP 135/79; PULSE 89; RESP 20; TEMP 36.7; O2SAT 96
[2023-08-14] VITALS (9 sets, daily range): BP systolic 128–167; BP diastolic 57–80; PULSE 75–89; RESP 16–24; TEMP 35.9–36.9; O2SAT 90–98; BMI 90.8
[2023-08-14] MEDS: MELATONIN 3 MG TABLET PO ×2 (00:30→21:00)
[2023-08-14] MEDS: 0.9 % SODIUM CHLORIDE 1000 ml 1,000 ML 75 ML IV ×3 (01:18→15:06)
--- NOTE | 2023-08-14 05:31 | PC.NURSE ---
Addendum entered by Gabriel Garrett RN 08/14/23 05:44: Pt came to the unit with Rodriguez draining clear pale yellow urine. Original Note: Shift note: Pt was received to the unit at 2254, just immediately before taking over from the day shift nurse. Pt was brought in on stretcher, conscious, alert and oriented but morbidly obese. Pt was weak to assist in transfer to bed. On examination, left leg appeared swelling and reddened. Pt confirmed mild pain and tenderness. 22G IV was inserted to the right forearm with N/S infusing at 500ml/hr. Pt had OKSANA on chronic use of home CPAP but denied SOB, chest pain, cough or fever on arrival. MD ordered to assist with ambulation. However, pt has been in bed throughout the night and has been using the CPAP which came with her. N/S set up to infuse at 75ml/hr. Vitally stable. Pt had adequate sleep. Weight this morning was 215kg using bed scale.
[2023-08-14] MEDS: CEFAZOLIN 2 GM in 0.9 % SODIUM CHLORIDE Mini-bag 100 ML IVPB ×3 (06:04→22:06)
[2023-08-14 06:43] LABS: HCO3 VBG 26 mmol/L (21-28); Lactate* 0.8 mmol/L (0.5-1.9); PCO2 VBG 44 mmHG (40-50); PO2 VBG 44.4 mmHG (25-47); pH VBG 7.376 (7.32-7.43)
[2023-08-14 06:52] LABS: Basophils Percent Auto 0.4 % (0.0-3.0); Eosinophils Percent Auto 1.6 % (0.0-7.0); Hematocrit 31.9 % (33.0-51.0); Hemoglobin* 9.5 gm/dL (12.0-16.0); Immature Granulocytes Pct Auto 0.8 %; Lymphocytes Percent Auto 10.6 % (20-44); Mean Corpuscular HGB Conc 30 gm/dL (32-36); Mean Corpuscular Hemoglobin 27 pg (26-34); Mean Corpuscular Volume 91 fL (80-100); Monocytes Percent Auto 8.8 % (0.0-11.0); Neutrophils Percent Auto 77.8 % (42.0-72.0); Platelet Count* 375 K/uL (140-440); RDW Coefficient of Variation % 17.1 % (11.5-15.5); Red Blood Count 3.51 m/uL (4.00-5.20); White Blood Count* 14.09 K/uL (4.50-11.00)
[2023-08-14 06:54] LABS: Slide Review Reflex No
[2023-08-14 07:07] LABS: Albumin* 3.2 g/dL (3.3-5.0); Chloride* 108 mmol/L (96-114); Potassium* 3.7 mmol/L (3.6-5.1); Sodium* 138 mmol/L (135-149)
[2023-08-14 07:10] LABS: Alanine Aminotransferase* 75 U/L (4-35); Alkaline Phosphatase* 125 U/L (40-150); Anion Gap 4 mEq/L (7-15); Aspartate Amino Transferase* 54 U/L (12-35); Bilirubin Total* 0.5 mg/dL (0.1-1.5); Blood Urea Nitrogen* 21 mg/dL (7-30); Carbon Dioxide* 26 mmol/L (20-32); Creatinine* 1.5 mg/dL (0.5-1.5); Est. Creatinine Clearance* 31.15; Estimated Glomerular Filt Rate 41 ml/min; Glucose* 142 mg/dL (60-115)
[2023-08-14 07:11] LABS: Calcium* 8.1 mg/dL (8.4-10.6)
[2023-08-14] MEDS: LEVOTHYROXINE 100 MCG TABLET PO (07:52)
[2023-08-14] MEDS: OMEPRAZOLE 20 MG CAPSULE DR PO (07:52)
[2023-08-14] MEDS: ACETAMINOPHEN 325 MG TABLET 975 MG PO ×2 (07:59→21:02)
[2023-08-14 08:32] LABS: Hemoglobin A1C* 6.1 % (0-5.6)
[2023-08-14 08:57] LABS: C Reactive Protein* 11.8 mg/dL (0.5-1.0)
[2023-08-14] MEDS: AMLODIPINE 5 MG TABLET 2.5 MG PO (09:10)
[2023-08-14] MEDS: GABAPENTIN 100 MG CAPSULE 200 MG PO ×2 (09:10→20:59)
[2023-08-14] MEDS: FLUCONAZOLE 100 MG TABLET PO (09:10)
[2023-08-14] MEDS: PARoxetine 20 MG TABLET 40 MG PO (09:10)
[2023-08-14] MEDS: SODIUM CHLORIDE 0.9 % (FLUSH) 10 ML SYRINGE 5 ML IVF (09:20)
[2023-08-14] MEDS: INSULIN ASPART 100 UNIT/ML SUBCUT ×3 (12:30→21:00)
[2023-08-14 13:14] LABS: PCR FLU A Negative PCR FLU A (Negative); PCR FLU B Negative PCR FLU B (Negative); SARS PCR* Negative SARS-CoV-2 (Negative)
--- NOTE | 2023-08-14 16:01 | PM.IMPN1 ---
Progress Note: A&P Assessment and plan (1) Sepsis syndrome: Problem details: - as evidenced by tachycardia, elevated WBC, elevated lactate, LLE cellulitis. By 08/14/2023 this is in great measure resolved. - blood cultures pending - Ancef initiated in ED (08/12), will continue this, blood cultures pending - IV fluid bolus given, heart rate has improved upon arrival to the floor and blood pressure remained stable Status: Acute (2) Cellulitis and abscess of left leg: Problem details: - LLE, Ancef initiated 08/12, will continue Status: Acute (3) CKD (chronic kidney disease) stage 3, GFR 30-59 ml/min: Problem details: - baseline GFR in the 30s Status: Acute (4) Hypothyroid: Problem details: - TSH wnl 10/07, will recheck and continue home dose of Levothyroxine Status: Acute (5) Sleep apnea: Problem details: - home CPAP at night Status: Acute (6) Intertriginous dermatitis associated with moisture: Problem details: - Diflucan orally x3 days - continue antifungal powder, keep area dry Status: Acute (7) Diabetes: Problem details: - last A1C in [facility] chart is 5.4 (11/2022) - repeat A1C, Accu-Cheks Status: Acute (8) Anemia: Problem details: - no evidence of acute bleeding - baseline outpatient hemoglobin 9-11 per chart review, current hemoglobin 9.5. Status: Acute Plan 1. Reviewed impression with patient 2. Discuss treatment plan 3. Answered her questions 4. Patient agreeable with above stated plans and recommendations. Subjective Date Seen: 08/14/23 Interval history: Hospital day 2. Admitted 08/13/2023. Feels a little better today. Less pain in affected left lower extremity. Eating and drinking. Needs assist with most of her ADLs except for feeding herself after food prep and setup, which is not new. Exam Narrative: Exam Narrative: Examined patient in her hospital room. Appears comfortable no acute distress. Vision and hearing are adequate. Alert and oriented to self, place, time, situation. Friendly cooperative. Morbid obesity. Lung sounds are clear. Heart tones with regular rhythm. Normal S1-S2. Abdomen with active bowel sounds, soft, nontender. Bilateral lower extremity lymphedema. Erythema on left barber and calf less intense with less warmth than yesterday. Cutaneous candidiasis involving abdominal folds, groin, back. No focal motor neurologic deficits. Generalized weakness. Const: Vital Signs, click to edit/add: Vital Signs - 24 hr 08/13/23 20:10 08/13/23 21:00 08/13/23 21:04 Temperature 98.0 F 98.0 F Pulse Rate [Left P ulse Oximeter] Pulse Rate [Pulse Oximeter] 105 H Respiratory Rate 20 Blood Pressure [Le ft Arm] Blood Pressure [Ri ght Upper Arm] 141/75 H Pulse Oximetry 96 97 Oxygen Delivery Me thod Room Air 08/13/23 23:03 08/14/23 01:04 08/14/23 01:11 Temperature 98.0 F 98.1 F Pulse Rate [Left P ulse Oximeter] 89 Pulse Rate [Pulse Oximeter] 89 Respiratory Rate 20 24 24 Blood Pressure [Le ft Arm] 128/72 Blood Pressure [Ri ght Upper Arm] 135/79 Pulse Oximetry 96 90 90 Oxygen Delivery Me thod Room Air Room Air Room Air 08/14/23 03:00 08/14/23 07:00 08/14/23 07:00 Temperature 97.8 F 96.6 F L Pulse Rate [Left P ulse Oximeter] 75 80 80 Pulse Rate [Pulse Oximeter] Respiratory Rate 20 22 22 Blood Pressure [Le ft Arm] 149/80 H 143/66 H Blood Pressure [Ri ght Upper Arm] Pulse Oximetry 97 98 Oxygen Delivery Me thod Room Air 08/14/23 07:00 08/14/23 11:00 08/14/23 15:00 Temperature 97.2 F L Pulse Rate [Left P ulse Oximeter] 80 80 Pulse Rate [Pulse Oximeter] Respiratory Rate 22 24 24 Blood Pressure [Le ft Arm] 147/73 H Blood Pressure [Ri ght Upper Arm] Pulse Oximetry 98 92 Oxygen Delivery Me thod Room Air Room Air 08/14/23 15:00 Temperature Pulse Rate [Left P ulse Oximeter] Pulse Rate [Pulse Oximeter] Respiratory Rate 24 Blood Pressure [Le ft Arm] Blood Pressure [Ri ght Upper Arm] Pulse Oximetry 92 Oxygen Delivery Me thod Room Air Labs Labs: Laboratory Results - last 24 hr 08/13/23 08/13/23 08/13/23 21:06 21:15 21:15 WBC 15.06 H RBC 4.15 Hgb 11.1 L Hct 37.4 MCV 90 MCH 27 MCHC 30 L RDW Coeff of Padmini 17.0 H Plt Count 454 H Neut % (Auto) 85.6 H Lymph % (Auto) 7.0 L [place]on % (Auto) 5.0 Eos % (Auto) 1.4 Baso % (Auto) 0.1 Neut # (Auto) 12.90 H Lymph # (Auto) 1.10 [place]on # (Auto) 0.80 Eos # (Auto) 0.20 Baso # (Auto) 0.00 Abs Immat Gran (auto) 0.10 Imm/Tot Granulo (auto) 0.9 D-Dimer Quant (PE/DVT) 1.50 H VBG pH VBG pCO2 VBG pO2 VBG HCO3 Sodium 139 Potassium 3.6 Chloride 106 Carbon Dioxide 21 Anion Gap 12 BUN 23 Creatinine 1.5 Estimated Creat Clear 31.15 Estimated GFR 41 Glucose 182 H Hemoglobin A1c Lactate 3.2 H Calcium 8.7 Total Bilirubin AST ALT Alkaline Phosphatase C-Reactive Protein 7.7 H Total Protein Albumin Procalcitonin 0.66 H Cancelled TSH SARS-CoV-2 (PCR) Influenza Type A (PCR) Influenza Type B (PCR) Lab Acknowledgement Test Added 08/14/23 08/14/23 08/14/23 05:45 08:25 08:26 WBC 14.09 H RBC 3.51 L Hgb 9.5 L Hct 31.9 L MCV 91 MCH 27 MCHC 30 L RDW Coeff of Padmini 17.1 H Plt Count 375 Neut % (Auto) 77.8 H Lymph % (Auto) 10.6 L [place] % (Auto) 8.8 Eos % (Auto) 1.6 Baso % (Auto) 0.4 Neut # (Auto) 11.00 H Lymph # (Auto) 1.50 [place]on # (Auto) 1.20 H Eos # (Auto) 0.20 Baso # (Auto) 0.10 Abs Immat Gran (auto) 0.10 Imm/Tot Granulo (auto) 0.8 D-Dimer Quant (PE/DVT) VBG pH 7.376 VBG pCO2 44 VBG pO2 44.4 VBG HCO3 26 Sodium 138 Potassium 3.7 Chloride 108 Carbon Dioxide 26 Anion Gap 4 L BUN 21 Creatinine 1.5 Estimated Creat Clear 31.15 Estimated GFR 41 Glucose 142 H Hemoglobin A1c 6.1 H Lactate 0.8 Calcium 8.1 L Total Bilirubin 0.5 AST 54 H ALT 75 H Alkaline Phosphatase 125 C-Reactive Protein 11.8 H Total Protein 7.0 Albumin 3.2 L Procalcitonin TSH 2.180 SARS-CoV-2 (PCR) Negative SARS-CoV-2 Influenza Type A (PCR) Negative PCR FLU A Influenza Type B (PCR) Negative PCR FLU B Lab Acknowledgement Test Added
[2023-08-14] MEDS: NYSTATIN POWDER 1 APPLIC TOPICAL (16:44)
--- NOTE | 2023-08-14 17:42 | PC.NURSE ---
Patient VSS. Alert and oriented. Rodriguez intact and patent. PT worked with patient this morning. Patient was able to sit up on the side of the bed for 20 minutes. Patient refused to get out of bed to ambulate.
[2023-08-14] MEDS: ENOXAPARIN 40 MG/0.4 ML INJ SUBCUT (20:59)
[2023-08-14] MEDS: ATORVASTATIN 10 MG TABLET PO (21:00)
[2023-08-15 03:33] VITALS: BP 145/82; PULSE 83; RESP 20; O2SAT 96
[2023-08-15] MEDS: 0.9 % SODIUM CHLORIDE 1000 ml 1,000 ML 75 ML IV (04:48)
[2023-08-15] MEDS: CEFAZOLIN 2 GM in 0.9 % SODIUM CHLORIDE Mini-bag 100 ML IVPB (06:01)
--- NOTE | 2023-08-15 06:55 | PC.NURSE ---
End of shift [id number]: A&O pleasant and cooperative. Afebrile. VSS w/ sats >90% on RA. Uses CPAP while sleeping. Left leg red and warm to touch. Repo when pt allows. Using call light appropriately
[2023-08-15 07:00] VITALS: BP 145/81; PULSE 76; RESP 20; TEMP 36.4; O2SAT 97
[2023-08-15 08:17] LABS: Basophils Absolute Auto 0.02 K/uL (0.00-0.30); Basophils Percent Auto 0.2 % (0.0-3.0); Eosinophils Absolute Auto 0.21 K/uL (0.00-0.50); Eosinophils Percent Auto 1.9 % (0.0-7.0); Hematocrit 31.7 % (33.0-51.0); Hemoglobin* 9.3 gm/dL (12.0-16.0); Immature Granulocytes Abs Auto 0.12 K/uL (0.00-0.30); Immature Granulocytes Pct Auto 1.1 %; Lymphocytes Percent Auto 11.5 % (20-44); Mean Corpuscular HGB Conc 29 gm/dL (32-36); Mean Corpuscular Hemoglobin 27 pg (26-34); Mean Corpuscular Volume 92 fL (80-100); Monocytes Percent Auto 8.3 % (0.0-11.0); Platelet Count* 377 K/uL (140-440); RDW Coefficient of Variation % 17.2 % (11.5-15.5); Red Blood Count 3.46 m/uL (4.00-5.20); White Blood Count* 10.88 K/uL (4.50-11.00)
[2023-08-15 08:24] LABS: Slide Review Reflex No
[2023-08-15 08:30] LABS: Albumin* 3.2 g/dL (3.3-5.0)
[2023-08-15 08:33] LABS: Bilirubin Direct* 0.3 mg/dL (0.0-0.5); Bilirubin Total* 0.3 mg/dL (0.1-1.5)
[2023-08-15 08:34] LABS: Alanine Aminotransferase* 42 U/L (4-35); Alkaline Phosphatase* 126 U/L (40-150); Aspartate Amino Transferase* 51 U/L (12-35); Total Protein* 6.9 g/dL (6.0-8.3)
[2023-08-15 08:37] LABS: C Reactive Protein* 8.1 mg/dL (0.5-1.0)
[2023-08-15] MEDS: GABAPENTIN 100 MG CAPSULE 200 MG PO (10:52)
[2023-08-15] MEDS: FLUCONAZOLE 100 MG TABLET PO (10:52)
[2023-08-15] MEDS: LEVOTHYROXINE 100 MCG TABLET PO (10:52)
[2023-08-15] MEDS: PARoxetine 20 MG TABLET 40 MG PO (10:52)
[2023-08-15] MEDS: AMLODIPINE 5 MG TABLET 2.5 MG PO (10:53)
--- NOTE | 2023-08-15 13:24 | PC.NURSE ---
With the help of PT, OT and pt's . Pt was helped to dress and transfer/pivot to her scooter chair. Discharge instructions were given to patient and family member. All questions were answered and forms were signed. Saline lock removed in left FA. All belongings were sent. Pt to exit/home via power scooter chair.
--- NOTE | 2023-08-17 22:25 | P.DS_ITS ---
DS: Providers Provider Date Seen: 08/15/23 Date of admission: 08/13/23 23:47 Primary care physician: Ryan Donaldson DO Admitting Clinician: Coby Khan MD Consults: 08/13/23 23:37 Consult to Physical Therapy [CONS] Routine Comment: Reason(s) for PT Consult:: Evaluate and Treat Any Restrictions?:: No Restrictions Consult to [employer] [CONS] Routine Comment: Reason for Consult:: Discharge Planning Needs 08/13/23 23:39 Consult to Occupational Therapy [CONS] Routine Comment: Reason(s) for OT Consult:: Evaluate and Treat Any Restrictions?:: No Restrictions Attending Physician on discharge: Julio Lopez MD Date of Discharge: 08/15/23 DS: Diagnosis Discharge Diagnosis (1) Cellulitis and abscess of left leg: Status: Acute Problem details: - LLE, Ancef initiated 08/12, will continue while in hospital (2) Sepsis syndrome: Status: Acute Problem details: - as evidenced by tachycardia, elevated WBC, elevated lactate, LLE cellulitis. By 08/14/2023 this is in great measure resolved. - blood cultures pending - Ancef initiated in ED (08/12), will continue this, blood cultures pending - IV fluid bolus given, heart rate has improved upon arrival to the floor and blood pressure remained stable (3) Intertriginous dermatitis associated with moisture: Status: Acute Problem details: - Diflucan orally x3 days - continue antifungal powder, keep area dry (4) Mobility impaired: Status: Acute Problem details: Due to obesity patient has very limited no mobility and likely needs additional help. She does have help at home. Currently unclear if this is adequate but patient reports historically she has been managing well with her mobility and personal hygiene up until recently. (5) Urinary incontinence: Status: Acute Problem details: - reportedly acute, since recent UTI, seemingly caused by bladder spasms. Does use oxybutynin at baseline. UC pending. (6) Morbid obesity with body mass index (BMI) greater than or equal to 50: Status: Acute Problem details: - 01/07/23: wt. 221.7 kg, height 152.4 cm, BMI 95.5 kg/m2. Unable to utilize CT scanner if needed. Consult nutrition for weight loss program. Patient is open to calorie restricted diet in the hospital. Request family not bring in food and patient to work with our dietitian and follow Suzie restrictions. She is agreeable to this. (7) OKSANA (obstructive sleep apnea): Status: Acute Problem details: - continue with her home CPAP when asleep (8) Diabetes: Status: Acute Problem details: - last A1C in [facility] chart is 5.4 (11/2022) - repeat A1C, Accu-Cheks (9) CKD (chronic kidney disease) stage 3, GFR 30-59 ml/min: Status: Acute Problem details: - baseline GFR in the 30s (10) Anemia: Status: Acute Problem details: - no evidence of acute bleeding - baseline outpatient hemoglobin 9-11 per chart review, current hemoglobin 9.5. (11) Hypothyroid: Status: Acute Problem details: - TSH wnl 10/07, will recheck and continue home dose of Levothyroxine DS: Summary Hospital Course Hospital Course: Admission History of Present Illness: Antonina Elizabeth is a 53 year old female who presented with her to the emergency room this evening for concerns of left lower extremity erythema and discomfort. She has noted symptoms over the past couple of days, has had associated chills but has not been able to check her temperature. In addition to her left lower extremity, per Rodriguez catheter followed earlier today. She has had this for many months for history of chronic urinary retention. She has outpatient follow-up with Urology scheduled. ER course and findings: - white blood count of 15 with 86% PMNs, lactate 3.2, pulse 105 - erythema and warmth of left lower extremity, Ancef started in the emergency room - Rodriguez catheter replaced History is ... updated below, PCP has previously been Dr. Castro at the [facility] in [place]. 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 She was hospitalized and then treated at [facility] from December to April. She is nonambulatory, does do pivot transfers with 1 assist at home with her . She has assistance from her kefihe-iy-exn and jpedoov-ci-pps as well. Treated with cefazolin IV while in hospital for the cellulitis which improved substantially while in hospital and started oral cefadroxil at discharge. IVF were also administered with sepsis presentation, which resolved. Treated yeast dermatitis in skin folds. See notes above for additional details. Status at Discharge Functional status at discharge: wheelchair bound Overall status at discharge: patient is back to baseline Time Spent with Patient Time attestation: Total time spent providing and/or coordinating discharge services: Time spent: Greater than 30 minutes Exam Narrative: Exam Narrative: Examined patient in her hospital room. Appears comfortable no acute distress. Vision and hearing are adequate. Alert and oriented to self, place, time, situation. Friendly cooperative. Morbid obesity. Lung sounds are clear. Heart tones with regular rhythm. Normal S1-S2. Abdomen with active bowel sounds, soft, nontender. Bilateral lower extremity lymphedema. Erythema on left barber and calf much less intense with minimal warmth compared to previously. Cutaneous candidiasis involving abdominal folds, groin, back improving with interventions. No focal motor neurologic deficits, other than chronic unstable gait and requires motorized scooter for locomotion. Generalized weakness. DS: Data Data Completed and Pending Completed studies during hospitalization: Procedures Dressing of Abdominal Wall using Bandage (01/07/23) Dressing of Back using Bandage (01/07/23) Dressing of Left Lower Extremity using Bandage (01/07/23) Irrigation of Skin and Mucous Membranes using Irrigating Substance, Diagnostic (01/07/23) Labs on day of discharge: Preliminary micro results at discharge 08/13/23 21:15 Blood Culture - Preliminary Blood NO GROWTH AFTER 96 HOURS Discharge Plan Discharge Disposition: Home, Self-Care Date of Admission: 08/13/23 23:47 Attending Provider on Discharge: Julio Lopez Primary Care Provider: Ryan Donaldson Condition: Improved Anticipated Discharge Date/Time: 08/15/23 12:00 Discharge Medications: New cefadroxil 500 mg capsule 500 mg PO BID Qty: 10 0RF fluconazole 100 mg tablet 100 mg PO DAILY Qty: 2 0RF nystatin 100,000 unit/gram powder 1 applic topical DAILY Qty: 30 1RF Rx Instructions: Gently wash affected area and pat dry, then apply powder to affected area, keep area clean and dry. Continued atorvastatin 10 mg tablet 10 mg PO DAILY amlodipine 2.5 mg tablet 2.5 mg PO DAILY pantoprazole 40 mg tablet,delayed release (DR/EC) 40 mg PO DAILY diclofenac sodium 1 % gel 2 g topical QID PRN Mounjaro 5 mg/0.5 mL pen injector 5 mg subcut .WEEKLY pioglitazone 15 mg tablet 15 mg PO DAILY levothyroxine 100 mcg tablet 100 mcg PO DAILY gabapentin 100 mg capsule 200 mg PO BID paroxetine HCl 40 mg tablet 40 mg PO DAILY Discontinued omeprazole 20 mg capsule,delayed release(DR/EC) 20 mg PO DAILY Discharge Orders: Discharge Order (Routine); Ordered 08/15/23 Ordered By: Julio Lopez Patient Education: Cefadroxil (By mouth) (Duricef), Nystatin (On the skin), Fluconazole (By mouth), Cellulitis (GEN), Rodriguez Catheter Placement and Care (DC) Activity Level: Activity as Tolerated Discharge Diet: Diabetic and Heart Healthy (2 gm sodium, low fat) Follow Up Appointments: Sonja Hubbard MD [Staff Physician] - Ryan Donaldson DO [Primary Care Provider] - (Keep appointment with Dr. Donaldson as already set up for tomorrow, 08/16/2023) Forms: [facility] Info Instructions
== END 2023-08-15 12:15 | disposition home or self-care (01) | DRG 602 ==
LOC: ED 22:22 → MEDSURG 22:37
PROVIDERS: Internal Medicine; Admitting Provider Family Medicine; Emergency Provider Family Medicine; PCP Family Medicine; Visit Provider Family Medicine
DX: L03.116 Cellulitis of left lower limb (principal); A41.9 Sepsis, unspecified organism; Z68.45 Body mass index [BMI] 70 or greater, adult; L02.416 Cutaneous abscess of left lower limb; B37.2 Candidiasis of skin and nail; L30.4 Erythema intertrigo; Z74.09 Other reduced mobility; G47.33 Obstructive sleep apnea (adult) (pediatric); Z99.89 Dependence on other enabling machines and devices; Z79.85 Long-term (current) use of injectable non-insulin antidiabetic drugs; E66.01 Morbid (severe) obesity due to excess calories; R32 Unspecified urinary incontinence; E11.22 Type 2 diabetes mellitus with diabetic chronic kidney disease; N18.30 Chronic kidney disease, stage 3 unspecified; D64.9 Anemia, unspecified; Z79.84 Long term (current) use of oral hypoglycemic drugs; E03.9 Hypothyroidism, unspecified
CPT/HCPCS: 36415; 80048; 80053; 80076; 82803; 82962; 83036; 83605; 84145; 84443; 85025; 85379; 86140; 87040; 87631; 94761; 97161; 97166; 97530; 97535; 99284; 99285; A9270; J0690; J1650; J7030

== ENCOUNTER 2023-08-20 15:00 | Emergency (ER) | payer OTHER, SELFPAY ==
[2023-08-20 15:16] VITALS: BP 141/79; PULSE 90; RESP 22; TEMP 36.1; O2SAT 94; BMI 79.8
--- NOTE | 2023-08-20 15:27 | CRLHL7_ITS ---
For Patients: As a result of the Cures Act, medical imaging exams and procedure reports are released immediately into your electronic medical record. You may view this report before your referring provider. If you have questions, please contact your health care provider. Indication: Pain and swelling Technique: Right lower extremity venous ultrasound utilizing grayscale, color flow and duplex Doppler techniques Comparison: None Findings/impression : Study is significantly limited by technique and patient body habitus with only the right common femoral, partially visualized greater saphenous and partially visualized femoral vein interrogated. Popliteal and calf veins were not interrogated. No gross echogenic debris within the visualized veins. Normal compressibility, color flow and normal augmented duplex Doppler waveforms. Dictated by Raoul Flanagan MD @ 08/20/2023 4:15:25 PM (Electronically Signed)
--- NOTE | 2023-08-20 15:54 | ED_ITS ---
HPI - General Adult General Chief complaint: Extremity Pain/Injury, Lower Stated complaint: leg swelling - cellulitis Time Seen by Provider: 08/20/23 15:14 Source: patient Mode of arrival: ambulatory Limitations: no limitations History of Present Illness HPI narrative: 53-year-old female coming in today concerned about cellulitis. Patient was recently hospitalized for left lower extremity cellulitis and states that that like it has been doing better. She had her last dose of antibiotics this morning. However, she states that yesterday the right lower extremity started getting red and tender. She denies any systemic symptoms. She denies trauma to the lower extremity. She does have a history of cellulitis and abscess formation of the left lower leg. Related Data Home Medications ?Medication ?Instructions ?Recorded ?Confirmed gabapentin 100 mg capsule 200 mg PO BID 01/07/23 08/14/23 levothyroxine 100 mcg tablet 100 mcg PO DAILY 01/07/23 08/14/23 paroxetine HCl 40 mg tablet 40 mg PO DAILY 01/07/23 08/14/23 pioglitazone 15 mg tablet 15 mg PO DAILY 01/07/23 08/14/23 amlodipine 2.5 mg tablet 2.5 mg PO DAILY 08/14/23 08/14/23 atorvastatin 10 mg tablet 10 mg PO DAILY 08/14/23 08/14/23 diclofenac sodium 1 % topical gel 2 g topical QID PRN 08/14/23 08/14/23 pantoprazole 40 mg tablet,delayed 40 mg PO DAILY 08/14/23 08/14/23 release tirzepatide 5 mg/0.5 mL 5 mg subcut .WEEKLY 08/14/23 08/14/23 subcutaneous pen injector (Trudy) Previous Rx's ?Medication ?Instructions ?Recorded cefadroxil 500 mg capsule 500 mg PO BID #10 caps 08/15/23 fluconazole 100 mg tablet 100 mg PO DAILY #2 tabs 08/15/23 nystatin 100,000 unit/gram topical 1 applic topical DAILY #30 grams 08/15/23 powder doxycycline hyclate 100 mg capsule 100 mg PO BID #10 caps 08/20/23 Allergies Allergy/AdvReac Type Severity Reaction Status Date / Time citalopram [From Celexa] Allergy Severe Verified 06/24/23 12:16 lisinopril AdvReac Intermediate Verified 06/24/23 12:16 silver AdvReac Intermediate Verified 06/24/23 12:16 [From Tegaderm AG Mesh] mirtazapine [From Remeron] AdvReac Verified 06/24/23 12:16 ranitidine AdvReac Nausea Verified 06/24/23 12:16 lactose Allergy Mild Uncoded 08/14/23 15:15 Review of Systems Status of ROS: Reports: 10 or more systems reviewed and unremarkable except as noted in History and below [facility] Medical History (Updated 08/20/23 @ 17:50 by Albina Garber MD) CKD (chronic kidney disease) stage 3, GFR 30-59 ml/min ?N18.30 - Chronic kidney disease, stage 3 unspecified (ICD-10) Fistula involving buttock ?L98.8 - Other specified disorders of the skin and subcutaneous tissue (ICD- 10) Sleep apnea ?G47.30 - Sleep apnea, unspecified (ICD-10) Neutrophilic leukocytosis ?D72.9 - Disorder of white blood cells, unspecified (ICD-10) Mobility impaired ?Z74.09 - Other reduced mobility (ICD-10) Uterine cancer ?C55 - Malignant neoplasm of uterus, part unspecified (ICD-10) OKSANA (obstructive sleep apnea) ?G47.33 - Obstructive sleep apnea (adult) (pediatric) (ICD-10) Diabetes ?E11.9 - Type 2 diabetes mellitus without complications (ICD-10) Morbid obesity with body mass index (BMI) greater than or equal to 50 ?E66.01 - Morbid (severe) obesity due to excess calories (ICD-10) Major depression ?F32.9 - Major depressive disorder, single episode, unspecified (ICD-10) Hypothyroid ?E03.9 - Hypothyroidism, unspecified (ICD-10) HTN (hypertension) ?I10 - Essential (primary) hypertension (ICD-10) Endometrial cancer ?C54.1 - Malignant neoplasm of endometrium (ICD-10) Anxiety ?F41.9 - Anxiety disorder, unspecified (ICD-10) Surgical History S/P RADHA-BSO ?Z90.710 - Acquired absence of both cervix and uterus (ICD-10) ?Z90.722 - Acquired absence of ovaries, bilateral (ICD-10) ?Z90.79 - Acquired absence of other genital organ(s) (ICD-10) History of tonsillectomy ?Z90.89 - Acquired absence of other organs (ICD-10) History of cholecystectomy ?Z90.49 - Acquired absence of other specified parts of digestive tract (ICD- 10) Social History Narrative: Lives with , [id number] and zzijmd-[id number] locally. Uses a motorized scooter for mobility. Takes a few steps and pivot transfers at home. Former smoker. No alcohol use. Not currently working outside the home. Requests DNR/DNI status. What is your current living situation?: I presently have a place to live Problems where you live: no known problems Problems where you live details: None noted In the past 12 months, utilities in danger of being shut off: no In past 12 months, lack of transportation kept you from medical appts, meetings, work, or getting things needed for daily living: no In the past 12 mos, have been you worried that your food would run out before you had money to buy more?: never true In the past 12 mos, the food you bought just didn't last and you didn't have money to buy more?: never true Highest level of school completed/degree received: high school graduate Smoking Status: Never smoker Do you use any of these nicotine containing products: None Second hand tobacco smoke exposure: No How often do you have a drink containing alcohol: never How often do you have six or more drinks on one occasion: Never AUDIT-C Alcohol total score: 0 Non-prescribed substance use: denies use Caffeine: No How often does anyone, including family, friends and others, physically hurt you : never How often does anyone, including family, friends and others, insult or talk down to you: never How often does anyone, including family, friends and others, threaten you with harm: never How often does anyone, including family, friends and others, scream or curse at you: never service: No Exam Narrative: Exam Narrative: Morbidly obese patient in no acute distress. Alert and oriented. Answers questions appropriately. Mood and affect are appropriate. Thoughts are goal oriented and rational. No tangential or magical thinking noted. Patient speaks in full sentences without needing to catch her breath. HEENT: Normocephalic atraumatic. Extraocular muscles are intact. Conjunctivae are moist without any icterus noted. Moist mucous membranes. Extremities: Bilateral lower extremities have chronic skin changes with some mild induration. She has an outline of the left lower extremity without significant erythema left within the outline. She does have erythema and skin induration of the right lower extremity encompassing the lateral calf just distal to the knee to just proximal to the ankle. The area however is not hot to touch. She does have tenderness in the area. And scarring from previous abscess. Const: Vital Signs, click to edit/add: Vital Signs - 24 hr 08/20/23 15:16 Temperature 97 F L Pulse Rate [Left P ulse Oximeter] 90 Respiratory Rate 22 Blood Pressure [Le ft Forearm] 141/79 H Pulse Oximetry 94 Oxygen Delivery Me thod Room Air Course Course ED Course: Differential diagnosis includes skin irritation, DVT, cellulitis. Right lower extremity ultrasound attempted: Study was inconclusive, however, the things that were seen did not have any evidence of DVT. D-dimer is elevated, however patient did just recently have confirmed cellulitis. Her white cell count is elevated at 12.69. Discussed results with the patient. This time we decided to do another 5 days of antibiotics given the blisters on the left lower extremity and the erythema on the right. I do want her to have close follow-up with her primary care provider. Unfortunately it is Wednesday so follow-up will need to be on Wednesday. If she feels that pain is worsening or she develops a fever, I do want her to return to the ER over the weekend. I also want her to return to the ER over the weekend if she develops shortness of breath or chest pain. If she is not improving we may need to consider DVT more closely. We will extend her antibiotics for another 5 days, however will switch to doxycycline. Vital Signs Vital signs: Initial Vital Signs Temperature 97 F L 08/20/23 15:16 Temperature Source Temporal Artery Scan 08/20/23 15:16 Pulse Rate 90 08/20/23 15:16 Pulse Rhythm Regular 08/20/23 15:16 Pulse Strength 3+ Normal 08/20/23 15:16 Respiratory Rate 22 08/20/23 15:16 Blood Pressure 141/79 H 08/20/23 15:16 Blood Pressure Mean 99 08/20/23 15:16 Blood Pressure Position Sitting 08/20/23 15:16 Pulse Oximetry 94 08/20/23 15:16 Oxygen Delivery Method Room Air 08/20/23 15:16 Vital Signs Temperature 97 F L 08/20/23 15:16 Pulse Rate 90 08/20/23 15:16 Respiratory Rate 22 08/20/23 15:16 Blood Pressure 141/79 H 08/20/23 15:16 Pulse Oximetry 94 08/20/23 15:16 Oxygen Delivery Method Room Air 08/20/23 15:16 Temperature 97 F L 08/20/23 15:16 Pulse Rate 90 08/20/23 15:16 Respiratory Rate 22 08/20/23 15:16 Blood Pressure 141/79 H 08/20/23 15:16 Pulse Oximetry 94 08/20/23 15:16 Oxygen Delivery Method Room Air 08/20/23 15:16 Medical Decision Making MDM Narrative Medical decision making narrative: Redness and pain of the lower extremity, plan per above. Medical Records Medical records reviewed: Yes I reviewed the patient's medical records Lab Data Lab results reviewed: Yes I reviewed the patient's lab results Labs: Lab Results 08/20/23 Range/Units 17:03 WBC 12.69 H (4.50-11.00) K/uL RBC 4.09 (4.00-5.20) m/uL Hgb 10.8 L (12.0-16.0) gm/dL Hct 36.5 (33.0-51.0) % MCV 89 (80-100) fL MCH 26 (26-34) pg MCHC 30 L (32-36) gm/dL RDW Coeff of Padmini 17.1 H (11.5-15.5) % Plt Count 498 H (140-440) K/uL Neut % (Auto) 82.3 H (42.0-72.0) % Lymph % (Auto) 9.2 L (20-44) % Blackford % (Auto) 6.5 (0.0-11.0) % Eos % (Auto) 1.3 (0.0-7.0) % Baso % (Auto) 0.3 (0.0-3.0) % Neut # (Auto) 10.40 H (1.7-7.0) K/uL Lymph # (Auto) 1.20 (0.90-2.90) K/uL Blackford # (Auto) 0.80 (0.00-0.90) K/UL Eos # (Auto) 0.20 (0.00-0.50) K/uL Baso # (Auto) 0.00 (0.00-0.30) K/uL Abs Immat Gran (auto) 0.10 (0.00-0.30) K/uL Imm/Tot Granulo (auto) 0.4 % D-Dimer Quant (PE/DVT) 1.87 H (0.00-0.50) ug/ml Imaging Data Venous US: Attestation: I have reviewed the pertinent imaging results. Radiologist's impression: Procedure(s): US venous LE RT Accession Number(s): [id number] cc: Albina Garber M.D.; Ryan Donaldson D.O.~ For Patients: As a result of the Cures Act, medical imaging exams and procedure reports are released immediately into your electronic medical record. You may view this report before your referring provider. If you have questions, please contact your health care provider. Indication: Pain and swelling Technique: Right lower extremity venous ultrasound utilizing grayscale, color flow and duplex Doppler techniques Comparison: None Findings/impression : Study is significantly limited by technique and patient body habitus with only the right common femoral, partially visualized greater saphenous and partially visualized femoral vein interrogated. Popliteal and calf veins were not interrogated. No gross echogenic debris within the visualized veins. Normal compressibility, color flow and normal augmented duplex Doppler waveforms. Discharge Plan Discharge Clinical Impression: Swelling of lower extremity Patient Disposition: Home, Self-Care Condition: Stable Additional Instructions: Take all antibiotics as prescribed. Elevate legs as much as possible over the weekend. Follow-up with your primary care provider for a recheck on Wednesday. If over the weekend you develop worsening pain, fever, shortness of breath, or chest pain I do want you to return to the emergency room. Prescriptions: New doxycycline hyclate 100 mg capsule 100 mg PO BID Qty: 10 0RF No Action atorvastatin 10 mg tablet 10 mg PO DAILY amlodipine 2.5 mg tablet 2.5 mg PO DAILY pantoprazole 40 mg tablet,delayed release (DR/EC) 40 mg PO DAILY diclofenac sodium 1 % gel 2 g topical QID PRN Mounjaro 5 mg/0.5 mL pen injector 5 mg subcut .WEEKLY cefadroxil 500 mg capsule 500 mg PO BID Qty: 10 0RF fluconazole 100 mg tablet 100 mg PO DAILY Qty: 2 0RF nystatin 100,000 unit/gram powder 1 applic topical DAILY Qty: 30 1RF Rx Instructions: Gently wash affected area and pat dry, then apply powder to affected area, keep area clean and dry. pioglitazone 15 mg tablet 15 mg PO DAILY levothyroxine 100 mcg tablet 100 mcg PO DAILY gabapentin 100 mg capsule 200 mg PO BID paroxetine HCl 40 mg tablet 40 mg PO DAILY Follow Up/Referrals: Ryan Donaldson DO [Primary Care Provider] - Stand Alone Forms: [facility] Info Instructions
[2023-08-20 17:07] LABS: Basophils Percent Auto 0.3 % (0.0-3.0); Eosinophils Percent Auto 1.3 % (0.0-7.0); Hematocrit 36.5 % (33.0-51.0); Hemoglobin* 10.8 gm/dL (12.0-16.0); Immature Granulocytes Pct Auto 0.4 %; Lymphocytes Percent Auto 9.2 % (20-44); Mean Corpuscular HGB Conc 30 gm/dL (32-36); Mean Corpuscular Hemoglobin 26 pg (26-34); Mean Corpuscular Volume 89 fL (80-100); Monocytes Percent Auto 6.5 % (0.0-11.0); Neutrophils Percent Auto 82.3 % (42.0-72.0); Platelet Count* 498 K/uL (140-440); RDW Coefficient of Variation % 17.1 % (11.5-15.5); Red Blood Count 4.09 m/uL (4.00-5.20); White Blood Count* 12.69 K/uL (4.50-11.00)
[2023-08-20 17:10] LABS: Slide Review Reflex No
[2023-08-20 17:26] LABS: D Dimer Quantitative* 1.87 ug/ml (0.00-0.50)
[2023-08-20 18:24] VITALS: BP 141/79; PULSE 90; RESP 22; TEMP 36.1
--- NOTE | 2023-08-20 19:13 | ED.NURSE ---
Pt called and states [facility] is closing early and unable to picker and packer abx tonight. Per Dr. Garber, unable to dispense abx and ok to start abx tomorrow instead of tonight. Pt called back and notified, no further questions.
== END 2023-08-20 18:15 | disposition home or self-care (01) ==
PROVIDERS: Emergency Provider Family Medicine; PCP Family Medicine
DX: R22.42 Localized swelling, mass and lump, left lower limb (principal)
CPT/HCPCS: 36415; 85025; 85379; 93971; 99283; 99284

== ENCOUNTER 2023-08-29 13:36 | Emergency (ER) | payer OTHER, SELFPAY ==
[2023-08-29 14:00] VITALS: BP 128/73; PULSE 86; RESP 20; TEMP 36; O2SAT 95
--- NOTE | 2023-08-29 14:12 | ED_ITS ---
HPI - General Adult General Chief complaint: Urogenital Problems, Female Stated complaint: catheter came out Time Seen by Provider: 08/29/23 13:47 Source: patient Mode of arrival: other (Scooter) Limitations: no limitations History of Present Illness HPI narrative: 53-year-old morbidly obese female presenting after her urethral urinary catheter fell last night. Patient states that she had placed around last Thanksgi secondary to recurrent UTIs and urinary retention. She states that her infections were so frequent that she was constantly on antibiotics and that was felt that she was not emptying her bladder correctly. She states that since having the catheter in place she has only had 1 UTI. She has an appoint with a urologist mid September, and she was instructed to leave the catheter in place until then. Unfortunately, last night she had a large bowel movement where she had to strain and the catheter fell out. This is the 2nd time this month that this has occurred. She requires assistance getting it back in. She has no other complaints. Related Data Home Medications ?Medication ?Instructions ?Recorded ?Confirmed gabapentin 100 mg capsule 200 mg PO BID 01/07/23 08/14/23 levothyroxine 100 mcg tablet 100 mcg PO DAILY 01/07/23 08/14/23 paroxetine HCl 40 mg tablet 40 mg PO DAILY 01/07/23 08/14/23 pioglitazone 15 mg tablet 15 mg PO DAILY 01/07/23 08/14/23 amlodipine 2.5 mg tablet 2.5 mg PO DAILY 08/14/23 08/14/23 atorvastatin 10 mg tablet 10 mg PO DAILY 08/14/23 08/14/23 diclofenac sodium 1 % topical gel 2 g topical QID PRN 08/14/23 08/14/23 pantoprazole 40 mg tablet,delayed 40 mg PO DAILY 08/14/23 08/14/23 release tirzepatide 5 mg/0.5 mL 5 mg subcut .WEEKLY 08/14/23 08/14/23 subcutaneous pen injector (Trudy) Previous Rx's ?Medication ?Instructions ?Recorded cefadroxil 500 mg capsule 500 mg PO BID #10 caps 08/15/23 fluconazole 100 mg tablet 100 mg PO DAILY #2 tabs 08/15/23 nystatin 100,000 unit/gram topical 1 applic topical DAILY #30 grams 08/15/23 powder doxycycline hyclate 100 mg capsule 100 mg PO BID #10 caps 08/20/23 Allergies Allergy/AdvReac Type Severity Reaction Status Date / Time citalopram [From Celexa] Allergy Severe Verified 06/24/23 12:16 lisinopril AdvReac Intermediate Verified 06/24/23 12:16 silver AdvReac Intermediate Verified 06/24/23 12:16 [From Tegaderm AG Mesh] mirtazapine [From Remeron] AdvReac Verified 06/24/23 12:16 ranitidine AdvReac Nausea Verified 06/24/23 12:16 lactose Allergy Mild Uncoded 08/14/23 15:15 Review of Systems Status of ROS: Reports: 6 or more systems reviewed and unremarkable except as noted in History and below [facility] Medical History CKD (chronic kidney disease) stage 3, GFR 30-59 ml/min ?N18.30 - Chronic kidney disease, stage 3 unspecified (ICD-10) Fistula involving buttock ?L98.8 - Other specified disorders of the skin and subcutaneous tissue (ICD- 10) Sleep apnea ?G47.30 - Sleep apnea, unspecified (ICD-10) Neutrophilic leukocytosis ?D72.9 - Disorder of white blood cells, unspecified (ICD-10) Mobility impaired ?Z74.09 - Other reduced mobility (ICD-10) Uterine cancer ?C55 - Malignant neoplasm of uterus, part unspecified (ICD-10) OKSANA (obstructive sleep apnea) ?G47.33 - Obstructive sleep apnea (adult) (pediatric) (ICD-10) Diabetes ?E11.9 - Type 2 diabetes mellitus without complications (ICD-10) Morbid obesity with body mass index (BMI) greater than or equal to 50 ?E66.01 - Morbid (severe) obesity due to excess calories (ICD-10) Major depression ?F32.9 - Major depressive disorder, single episode, unspecified (ICD-10) Hypothyroid ?E03.9 - Hypothyroidism, unspecified (ICD-10) HTN (hypertension) ?I10 - Essential (primary) hypertension (ICD-10) Endometrial cancer ?C54.1 - Malignant neoplasm of endometrium (ICD-10) Anxiety ?F41.9 - Anxiety disorder, unspecified (ICD-10) Surgical History S/P RADHA-BSO ?Z90.710 - Acquired absence of both cervix and uterus (ICD-10) ?Z90.722 - Acquired absence of ovaries, bilateral (ICD-10) ?Z90.79 - Acquired absence of other genital organ(s) (ICD-10) History of tonsillectomy ?Z90.89 - Acquired absence of other organs (ICD-10) History of cholecystectomy ?Z90.49 - Acquired absence of other specified parts of digestive tract (ICD- 10) Social History Narrative: Lives with , [id number] and [id number] locally. Uses a motorized scooter for mobility. Takes a few steps and pivot transfers at home. Former smoker. No alcohol use. Not currently working outside the home. Requests DNR/DNI status. What is your current living situation?: I presently have a place to live Problems where you live: no known problems Problems where you live details: None noted In the past 12 months, utilities in danger of being shut off: no In past 12 months, lack of transportation kept you from medical appts, meetings, work, or getting things needed for daily living: no In the past 12 mos, have been you worried that your food would run out before you had money to buy more?: never true In the past 12 mos, the food you bought just didn't last and you didn't have money to buy more?: never true Highest level of school completed/degree received: high school graduate Smoking Status: Never smoker Do you use any of these nicotine containing products: None Second hand tobacco smoke exposure: No How often do you have a drink containing alcohol: never How often do you have six or more drinks on one occasion: Never AUDIT-C Alcohol total score: 0 Non-prescribed substance use: denies use Caffeine: No How often does anyone, including family, friends and others, physically hurt you : never How often does anyone, including family, friends and others, insult or talk down to you: never How often does anyone, including family, friends and others, threaten you with harm: never How often does anyone, including family, friends and others, scream or curse at you: never service: No Exam Narrative: Exam Narrative: Morbidly obese patient in no acute distress. Alert and oriented. Answers questions appropriately. Mood and affect are appropriate. Thoughts are goal oriented and rational. No tangential or magical thinking noted. Disheveled, poor hygiene. Const: Vital Signs, click to edit/add: Vital Signs - 24 hr 08/29/23 14:00 Temperature 96.8 F L Pulse Rate [Left P ulse Oximeter] 86 Respiratory Rate 20 Blood Pressure [Ri ght Forearm] 128/73 Pulse Oximetry 95 Oxygen Delivery Me thod Room Air Course Course ED Course: Given patient's body habitus, it was necessary to do change the patient's catheter on the [facility] floor. Vital Signs Vital signs: Initial Vital Signs Temperature 96.8 F L 08/29/23 14:00 Temperature Source Temporal Artery Scan 08/29/23 14:00 Pulse Rate 86 08/29/23 14:00 Pulse Rhythm Regular 08/29/23 14:00 Respiratory Rate 20 08/29/23 14:00 Blood Pressure 128/73 08/29/23 14:00 Blood Pressure Mean 91 08/29/23 14:00 Blood Pressure Position Sitting 08/29/23 14:00 Pulse Oximetry 95 08/29/23 14:00 Oxygen Delivery Method Room Air 08/29/23 14:00 Vital Signs Temperature 96.8 F L 08/29/23 14:00 Pulse Rate 86 08/29/23 14:00 Respiratory Rate 20 08/29/23 14:00 Blood Pressure 128/73 08/29/23 14:00 Pulse Oximetry 95 08/29/23 14:00 Oxygen Delivery Method Room Air 08/29/23 14:00 Temperature 96.8 F L 08/29/23 14:00 Pulse Rate 86 08/29/23 14:00 Respiratory Rate 20 08/29/23 14:00 Blood Pressure 128/73 08/29/23 14:00 Pulse Oximetry 95 08/29/23 14:00 Oxygen Delivery Method Room Air 08/29/23 14:00 Medical Decision Making MDM Narrative Medical decision making narrative: 53-year-old female, needing urinary catheter replacement, done on med/surg. Discharge Plan Discharge Clinical Impression: Encounter for replacement of urinary catheter Patient Disposition: Home, Self-Care Condition: Improved Additional Instructions: Follow-up with urology as scheduled. Be careful going forward so you do not pull out the urinary catheter in the future. Prescriptions: No Action atorvastatin 10 mg tablet 10 mg PO DAILY amlodipine 2.5 mg tablet 2.5 mg PO DAILY pantoprazole 40 mg tablet,delayed release (DR/EC) 40 mg PO DAILY diclofenac sodium 1 % gel 2 g topical QID PRN Mounjaro 5 mg/0.5 mL pen injector 5 mg subcut .WEEKLY cefadroxil 500 mg capsule 500 mg PO BID Qty: 10 0RF fluconazole 100 mg tablet 100 mg PO DAILY Qty: 2 0RF nystatin 100,000 unit/gram powder 1 applic topical DAILY Qty: 30 1RF Rx Instructions: Gently wash affected area and pat dry, then apply powder to affected area, keep area clean and dry. doxycycline hyclate 100 mg capsule 100 mg PO BID Qty: 10 0RF pioglitazone 15 mg tablet 15 mg PO DAILY levothyroxine 100 mcg tablet 100 mcg PO DAILY gabapentin 100 mg capsule 200 mg PO BID paroxetine HCl 40 mg tablet 40 mg PO DAILY Follow Up/Referrals: Ryan Donaldson DO [Primary Care Provider] - Stand Alone Forms: [facility] Info Instructions
== END 2023-08-29 17:06 | disposition home or self-care (01) ==
PROVIDERS: Emergency Provider Family Medicine; PCP Family Medicine
DX: R33.9 Retention of urine, unspecified (principal)
CPT/HCPCS: 99282; 99284

== ENCOUNTER 2023-08-31 08:00 | Outpatient (RCR) | payer OTHER, SELFPAY | END 2023-08-31 08:31 | disposition home or self-care (01) | PROVIDERS: PCP Family Medicine; Visit Provider Internal Medicine | DX: T14.90XD Injury, unspecified, subsequent encounter (principal); R53.81 Other malaise; Z51.89 Encounter for other specified aftercare | CPT/HCPCS: 97110; 97162; 97166; 97530; X5282 ==

== ENCOUNTER 2023-10-10 15:44 | Emergency (ER) | payer OTHER, SELFPAY ==
[2023-10-10 16:03] VITALS: BP 133/85; PULSE 98; RESP 18; TEMP 36.5; O2SAT 97
--- NOTE | 2023-10-10 16:07 | ED_ITS ---
HPI - General Adult General Chief complaint: Unspecified Complaint, Adult Stated complaint: catheter change Time Seen by Provider: 10/10/23 16:01 History of Present Illness HPI narrative: Patient is a 53 massively obese female who has a indwelling Rodriguez catheter. She saw the urologist this month and he wants to run some various tests on her and recommended she keep the catheter in she needs it changed about every month. She is due to have this done within the next week or so. The patient requires a Paul lift and multiple nurses and staff to help change her catheter she has had this done on the floor. At this time the ER is somewhat busy and staff cannot leave the ER. The patient is asymptomatic she is not having trouble to catheter is functioning properly. She would like it done sometime this week. Apparently has been an attempt to try and schedule catheter changes but this did not work. The refrigeration houseman is recommending that we schedule this is a scheduled procedure so we can have enough staff present. Antonina was comfortable with that. She is asymptomatic at present, no fevers, no chills. We will see if we can arrange this on a scheduled basis. The patient again is having no fever symptoms, the catheter is functioning properly. Related Data Home Medications ?Medication ?Instructions ?Recorded ?Confirmed gabapentin 100 mg capsule 200 mg PO BID 01/07/23 08/14/23 levothyroxine 100 mcg tablet 100 mcg PO DAILY 01/07/23 08/14/23 paroxetine HCl 40 mg tablet 40 mg PO DAILY 01/07/23 08/14/23 pioglitazone 15 mg tablet 15 mg PO DAILY 01/07/23 08/14/23 amlodipine 2.5 mg tablet 2.5 mg PO DAILY 08/14/23 08/14/23 atorvastatin 10 mg tablet 10 mg PO DAILY 08/14/23 08/14/23 diclofenac sodium 1 % topical gel 2 g topical QID PRN 08/14/23 08/14/23 pantoprazole 40 mg tablet,delayed 40 mg PO DAILY 08/14/23 08/14/23 release tirzepatide 5 mg/0.5 mL 5 mg subcut .WEEKLY 08/14/23 08/14/23 subcutaneous pen injector (Trudy) Previous Rx's ?Medication ?Instructions ?Recorded cefadroxil 500 mg capsule 500 mg PO BID #10 caps 08/15/23 fluconazole 100 mg tablet 100 mg PO DAILY #2 tabs 08/15/23 nystatin 100,000 unit/gram topical 1 applic topical DAILY #30 grams 08/15/23 powder doxycycline hyclate 100 mg capsule 100 mg PO BID #10 caps 08/20/23 Allergies Allergy/AdvReac Type Severity Reaction Status Date / Time citalopram [From Celexa] Allergy Severe Verified 06/24/23 12:16 lisinopril AdvReac Intermediate Verified 06/24/23 12:16 silver AdvReac Intermediate Verified 06/24/23 12:16 [From Tegaderm AG Mesh] mirtazapine [From Remeron] AdvReac Verified 06/24/23 12:16 ranitidine AdvReac Nausea Verified 06/24/23 12:16 lactose Allergy Mild Uncoded 08/14/23 15:15 Review of Systems Status of ROS: Reports: 6 or more systems reviewed and unremarkable except as noted in History and below [facility] Medical History CKD (chronic kidney disease) stage 3, GFR 30-59 ml/min ?N18.30 - Chronic kidney disease, stage 3 unspecified (ICD-10) Fistula involving buttock ?L98.8 - Other specified disorders of the skin and subcutaneous tissue (ICD- 10) Sleep apnea ?G47.30 - Sleep apnea, unspecified (ICD-10) Neutrophilic leukocytosis ?D72.9 - Disorder of white blood cells, unspecified (ICD-10) Mobility impaired ?Z74.09 - Other reduced mobility (ICD-10) Uterine cancer ?C55 - Malignant neoplasm of uterus, part unspecified (ICD-10) OKSANA (obstructive sleep apnea) ?G47.33 - Obstructive sleep apnea (adult) (pediatric) (ICD-10) Diabetes ?E11.9 - Type 2 diabetes mellitus without complications (ICD-10) Morbid obesity with body mass index (BMI) greater than or equal to 50 ?E66.01 - Morbid (severe) obesity due to excess calories (ICD-10) Major depression ?F32.9 - Major depressive disorder, single episode, unspecified (ICD-10) Hypothyroid ?E03.9 - Hypothyroidism, unspecified (ICD-10) HTN (hypertension) ?I10 - Essential (primary) hypertension (ICD-10) Endometrial cancer ?C54.1 - Malignant neoplasm of endometrium (ICD-10) Anxiety ?F41.9 - Anxiety disorder, unspecified (ICD-10) Surgical History S/P RADHA-BSO ?Z90.710 - Acquired absence of both cervix and uterus (ICD-10) ?Z90.722 - Acquired absence of ovaries, bilateral (ICD-10) ?Z90.79 - Acquired absence of other genital organ(s) (ICD-10) History of tonsillectomy ?Z90.89 - Acquired absence of other organs (ICD-10) History of cholecystectomy ?Z90.49 - Acquired absence of other specified parts of digestive tract (ICD- 10) Social History Narrative: Lives with , [id number] and [id number] locally. Uses a motorized scooter for mobility. Takes a few steps and pivot transfers at home. Former smoker. No alcohol use. Not currently working outside the home. Requests DNR/DNI status. What is your current living situation?: I presently have a place to live Problems where you live: no known problems Problems where you live details: None noted In the past 12 months, utilities in danger of being shut off: no In past 12 months, lack of transportation kept you from medical appts, meetings, work, or getting things needed for daily living: no In the past 12 mos, have been you worried that your food would run out before you had money to buy more?: never true In the past 12 mos, the food you bought just didn't last and you didn't have money to buy more?: never true Highest level of school completed/degree received: high school graduate Smoking Status: Never smoker Do you use any of these nicotine containing products: None Second hand tobacco smoke exposure: No How often do you have a drink containing alcohol: never How often do you have six or more drinks on one occasion: Never AUDIT-C Alcohol total score: 0 Non-prescribed substance use: denies use Caffeine: No How often does anyone, including family, friends and others, physically hurt you : never How often does anyone, including family, friends and others, insult or talk down to you: never How often does anyone, including family, friends and others, threaten you with harm: never How often does anyone, including family, friends and others, scream or curse at you: never service: No Exam Narrative: Exam Narrative: Objective: The patient is afebrile her vital signs are stable She is alert orient x3 No distress No cyanosis She gets around in a motorized wheelchair. Const: Vital Signs, click to edit/add: Vital Signs - 24 hr 10/10/23 16:03 Temperature 97.7 F Pulse Rate [Pulse Oximeter] 98 Respiratory Rate 18 Blood Pressure [Ri ght Upper Arm] 133/85 Pulse Oximetry 97 Oxygen Delivery Me thod Room Air Course Vital Signs Vital signs: Initial Vital Signs Temperature 97.7 F 10/10/23 16:03 Temperature Source Temporal Artery Scan 10/10/23 16:03 Pulse Rate 98 10/10/23 16:03 Respiratory Rate 18 10/10/23 16:03 Blood Pressure 133/85 10/10/23 16:03 Blood Pressure Mean 101 10/10/23 16:03 Blood Pressure Position Sitting 10/10/23 16:03 Pulse Oximetry 97 10/10/23 16:03 Oxygen Delivery Method Room Air 10/10/23 16:03 Vital Signs Temperature 97.7 F 10/10/23 16:03 Pulse Rate 98 10/10/23 16:03 Respiratory Rate 18 10/10/23 16:03 Blood Pressure 133/85 10/10/23 16:03 Pulse Oximetry 97 10/10/23 16:03 Oxygen Delivery Method Room Air 10/10/23 16:03 Temperature 97.7 F 10/10/23 16:03 Pulse Rate 98 10/10/23 16:03 Respiratory Rate 18 10/10/23 16:03 Blood Pressure 133/85 10/10/23 16:03 Pulse Oximetry 97 10/10/23 16:03 Oxygen Delivery Method Room Air 10/10/23 16:03 Medical Decision Making MDM Narrative Medical decision making narrative: 53-year-old massively obese patient who knees Rodriguez catheter change but requires multiple staff as well as Paul lift to do this. At this time that does not appear that staffing is favorable for this. She does not appear symptomatic. We could probably change this within the next few days on a scheduled basis I think I would recommend that. She was okay with that too. Will see if we can make an arrangement to schedule this. It would be preferable over the patient's schedule this through her primary care doctor through urology clinic. Discharge Plan Discharge Clinical Impression: Obesity, Chronic indwelling Rodriguez catheter Patient Disposition: Home w/ Parent or Adult Condition: Stable Additional Instructions: Return for catheter change at scheduled time with adequate staffing and re sources. Return for any sooner problems or concerns. Would prefer that she schedule this through her outpatient Urology Clinic, as ER is not really an outpatient clinic. If she runs into trouble with that she can certainly return Activity Level: No Restrictions Discharge Diet: Diabetic Prescriptions: No Action atorvastatin 10 mg tablet 10 mg PO DAILY amlodipine 2.5 mg tablet 2.5 mg PO DAILY pantoprazole 40 mg tablet,delayed release (DR/EC) 40 mg PO DAILY diclofenac sodium 1 % gel 2 g topical QID PRN Mounjaro 5 mg/0.5 mL pen injector 5 mg subcut .WEEKLY cefadroxil 500 mg capsule 500 mg PO BID Qty: 10 0RF fluconazole 100 mg tablet 100 mg PO DAILY Qty: 2 0RF nystatin 100,000 unit/gram powder 1 applic topical DAILY Qty: 30 1RF Rx Instructions: Gently wash affected area and pat dry, then apply powder to affected area, keep area clean and dry. doxycycline hyclate 100 mg capsule 100 mg PO BID Qty: 10 0RF pioglitazone 15 mg tablet 15 mg PO DAILY levothyroxine 100 mcg tablet 100 mcg PO DAILY gabapentin 100 mg capsule 200 mg PO BID paroxetine HCl 40 mg tablet 40 mg PO DAILY Follow Up/Referrals: Ryan Donaldson DO [Primary Care Provider] - Stand Alone Forms: [facility] Info Instructions
--- NOTE | 2023-10-13 16:15 | PC.NURSE ---
Pt called this morning asking when she could come in to have her catheter changed. Informed pt that she should contact her primary or urology clinic to have changed. Pt stated that she could not go to her urologist because it is in [place] and it is too far away. Pt stated she has had her catheter's changed at the hospital in the past and would like to continue to do so. Took pt's phone number and informed pt that this nurse would return call after speaking with pt's urology clinic. Called [facility] and spoke with grain trimmer, Elsie, and asked if pt was able to come to a closer clinic to have her kendall changed. Elsie stated that the [place] location is the only location that could change her kendall because they are the only location with a lift. Elsie stated she would send a message to pt's provider to perhaps get an order for home care if pt is unable to come to [place]. This nurse then notified the ED director and CNE to come up with a care plan. ED Director stated she will call pt's primary to come up with a better plan. Pt's primary has not returned ED directors phone call. Called pt to update her on the progress. Informed pt that she was wlecome to be seen in the ED at anytime or she could continue to wait until her primary doctor could return our call. Pt stated that she was planning on coming into the ED tomorrow morning to have changed.
== END 2023-10-10 17:25 | disposition home or self-care (01) ==
PROVIDERS: Emergency Provider Family Medicine; PCP Family Medicine
DX: T83.091A Other mechanical complication of indwelling urethral catheter, initial encounter (principal)
CPT/HCPCS: 99282

== ENCOUNTER 2023-10-14 11:03 | Emergency (ER) | payer OTHER, SELFPAY ==
[2023-10-14 11:22] VITALS: BP 138/93; PULSE 107; RESP 20; TEMP 35.7; O2SAT 94; BMI 90.8
--- NOTE | 2023-10-14 11:51 | ED_ITS ---
HPI - Female Genitourinary General Time Seen by Provider: 11:51 Date Seen: 10/14/23 Chief complaint: Urogenital Problems, Female Stated complaint: Crying pain needs catheter changed Time Seen by Provider: 10/14/23 11:06 Source: patient and RN notes reviewed Mode of arrival: other (Motorized scooter) Limitations: no limitations History of Present Illness HPI Narrative: This 53-year-old female is coming into the ER requesting a catheter change. She is having pain at the urethra where the catheter enters, no fevers, the Rodriguez is draining. She last had it changed in August here. She states she has urology follow-up, is going to [facility]. Her urologist is Dr. Willams. Staff worked yesterday trying to find alternate accommodations for this. She was in the ER on Wednesday and they could not accommodate a catheter change due to the volume in the ER. Patient is a bariatric patient, we really do not have the facilities for managing this. Is reported to me took 6 staff last time to accommodate this. There is concerned that we do not have appropriate equipment to safely transfer her from her motorized scooter into appropriate bed, even with lift. Related Data Home Medications ?Medication ?Instructions ?Recorded ?Confirmed gabapentin 100 mg capsule 200 mg PO BID 01/07/23 10/14/23 levothyroxine 100 mcg tablet 100 mcg PO DAILY 01/07/23 10/14/23 paroxetine HCl 40 mg tablet 40 mg PO DAILY 01/07/23 10/14/23 pioglitazone 15 mg tablet 15 mg PO DAILY 01/07/23 10/14/23 amlodipine 2.5 mg tablet 2.5 mg PO DAILY 08/14/23 10/14/23 atorvastatin 10 mg tablet 10 mg PO DAILY 08/14/23 10/14/23 diclofenac sodium 1 % topical gel 2 g topical QID PRN 08/14/23 10/14/23 pantoprazole 40 mg tablet,delayed 40 mg PO DAILY 08/14/23 10/14/23 release tirzepatide 5 mg/0.5 mL 5 mg subcut .WEEKLY 08/14/23 10/14/23 subcutaneous pen injector (Trudy) aspirin 81 mg capsule 81 mg PO DAILY 10/14/23 10/14/23 melatonin 5 mg capsule mg 10/14/23 Previous Rx's ?Medication ?Instructions ?Recorded cefadroxil 500 mg capsule 500 mg PO BID #10 caps 08/15/23 nystatin 100,000 unit/gram topical 1 applic topical DAILY #30 grams 08/15/23 powder Allergies Allergy/AdvReac Type Severity Reaction Status Date / Time citalopram [From Celexa] Allergy Severe Verified 10/14/23 11:28 lisinopril AdvReac Intermediate Verified 10/14/23 11:28 silver AdvReac Intermediate Verified 10/14/23 11:28 [From Tegaderm AG Mesh] mirtazapine [From Remeron] AdvReac Verified 10/14/23 11:28 ranitidine AdvReac Nausea Verified 10/14/23 11:28 Review of Systems Narrative: As per HPI. PFSH PFS Medical History CKD (chronic kidney disease) stage 3, GFR 30-59 ml/min ?N18.30 - Chronic kidney disease, stage 3 unspecified (ICD-10) Fistula involving buttock ?L98.8 - Other specified disorders of the skin and subcutaneous tissue (ICD- 10) Sleep apnea ?G47.30 - Sleep apnea, unspecified (ICD-10) Neutrophilic leukocytosis ?D72.9 - Disorder of white blood cells, unspecified (ICD-10) Mobility impaired ?Z74.09 - Other reduced mobility (ICD-10) Uterine cancer ?C55 - Malignant neoplasm of uterus, part unspecified (ICD-10) OKSANA (obstructive sleep apnea) ?G47.33 - Obstructive sleep apnea (adult) (pediatric) (ICD-10) Diabetes ?E11.9 - Type 2 diabetes mellitus without complications (ICD-10) Morbid obesity with body mass index (BMI) greater than or equal to 50 ?E66.01 - Morbid (severe) obesity due to excess calories (ICD-10) Major depression ?F32.9 - Major depressive disorder, single episode, unspecified (ICD-10) Hypothyroid ?E03.9 - Hypothyroidism, unspecified (ICD-10) HTN (hypertension) ?I10 - Essential (primary) hypertension (ICD-10) Endometrial cancer ?C54.1 - Malignant neoplasm of endometrium (ICD-10) Anxiety ?F41.9 - Anxiety disorder, unspecified (ICD-10) Surgical History S/P RADHA-BSO ?Z90.710 - Acquired absence of both cervix and uterus (ICD-10) ?Z90.722 - Acquired absence of ovaries, bilateral (ICD-10) ?Z90.79 - Acquired absence of other genital organ(s) (ICD-10) History of tonsillectomy ?Z90.89 - Acquired absence of other organs (ICD-10) History of cholecystectomy ?Z90.49 - Acquired absence of other specified parts of digestive tract (ICD- 10) Social History Narrative: Lives with , [id number] and [id number] locally. Uses a motorized scooter for mobility. Takes a few steps and pivot transfers at home. Former smoker. No alcohol use. Not currently working outside the home. Requests DNR/DNI status. What is your current living situation?: I presently have a place to live Problems where you live: no known problems Problems where you live details: None noted In the past 12 months, utilities in danger of being shut off: no In past 12 months, lack of transportation kept you from medical appts, meetings, work, or getting things needed for daily living: no In the past 12 mos, have been you worried that your food would run out before you had money to buy more?: never true In the past 12 mos, the food you bought just didn't last and you didn't have money to buy more?: never true Highest level of school completed/degree received: high school graduate Smoking Status: Never smoker Do you use any of these nicotine containing products: None Second hand tobacco smoke exposure: No How often do you have a drink containing alcohol: never How often do you have six or more drinks on one occasion: Never AUDIT-C Alcohol total score: 0 Non-prescribed substance use: denies use Caffeine: No How often does anyone, including family, friends and others, physically hurt you : never How often does anyone, including family, friends and others, insult or talk down to you: never How often does anyone, including family, friends and others, threaten you with harm: never How often does anyone, including family, friends and others, scream or curse at you: never service: No Exam Const: Vital Signs, click to edit/add: Vital Signs - 24 hr 10/14/23 11:22 Temperature 96.2 F L Pulse Rate [Pulse Oximeter] 107 H Respiratory Rate 20 Blood Pressure [Ri ght Upper Arm] 138/93 H Pulse Oximetry 94 Oxygen Delivery Me thod Room Air 53-year-old female comes in on a motoriz ed scooter. She is alert, interactive. Certainly in no apparent distress. She has a catheter with yellowish urine, not cloudy, appears to be draining into the bag. Unable to get this patient into a bed safely down here in the ER. Patient cannot get herself into the bed. Documenting provider has reviewed patient's vital signs: yes Course Course ED Course: Reviewed with patient that it is not felt this is is safe plan for routine catheter changes at this facility. We do not have the bariatric equipment to accommodate this. She is tearful when I tell her this, states she is having p ain. I have reviewed with her that I will try to talk to her urology group, we certainly can try to manage pain. Given that the catheter is functioning, no evidence of infection, this is not an emergent need right now. I will talk to her urology group and see what I can come up with. Reevaluation(s) Time of Reevaluation #1: 13:01 Reevaluation #1: Reviewed with patient my conversation with her [facility]rology [facility], PA from the clinic. We understand she is having pain, she is complaining of pain where the catheters entering at the urethra. Reviewed with her that Sherita agreed that it would likely be irritated but as long as there was no evidence of infection and catheter was draining that there was no need to change this emergently. Her is on the phone, he states that something has to be done for the pain. Sherita recommended azo or Ditropan. We will give her a dose of both. Have reviewed with her that her safety and our safety need to be considered. We need appropriate bariatric equipment. I do not believe that the facilities down here in the ED are adequate for changing. It truly is not appropriate for her to come here for catheter change out on a routine basis. Her urology clinic is working to schedule her an appointment. In the interim, what I can offer her is to wait until the ER isn't busy. We absolutely have a lobby full of patient's necessitating emergent visits, there acuity are absolutely over hers. We do not have the staff to attempt a catheter change, this needs to happen safely in a bariatric bed. Nursing staff have been consulted and they agree he that her suggestion of just changing in the bed here is what we do. None of us feel that this is a safe option, she has a very significant limited mobility and we need to assist in the transfer. Safety for both the patient as well as staff have to be a priority. She is not obstructed, has no evidence of any fever, is not having abdominal pain. It is just urethral site irritation from her history. She states the catheter needs to be changed. We will give her a dose of azo and Ditropan, she is welcome to wait and see if there was a time that this can be changed. Otherwise she may consider taking the urology appointment that they are trying to schedule. Vital Signs Vital signs: Initial Vital Signs Temperature 96.2 F L 10/14/23 11:22 Temperature Source Temporal Artery Scan 10/14/23 11:22 Pulse Rate 107 H 10/14/23 11:22 Respiratory Rate 20 10/14/23 11:22 Blood Pressure 138/93 H 10/14/23 11:22 Blood Pressure Mean 108 H 10/14/23 11:22 Blood Pressure Position Sitting 10/14/23 11:22 Pulse Oximetry 94 10/14/23 11:22 Oxygen Delivery Method Room Air 10/14/23 11:22 Vital Signs Temperature 96.2 F L 10/14/23 11:22 Pulse Rate 107 H 10/14/23 11:22 Respiratory Rate 20 10/14/23 11:22 Blood Pressure 138/93 H 10/14/23 11:22 Pulse Oximetry 94 10/14/23 11:22 Oxygen Delivery Method Room Air 10/14/23 11:22 Temperature 96.2 F L 10/14/23 11:22 Pulse Rate 107 H 10/14/23 11:22 Respiratory Rate 20 10/14/23 11:22 Blood Pressure 138/93 H 10/14/23 11:22 Pulse Oximetry 94 10/14/23 11:22 Oxygen Delivery Method Room Air 10/14/23 11:22 Discharge Plan Discharge Clinical Impression: Chronic indwelling Rodriguez catheter, Pain in urethra Patient Disposition: Home, Self-Care Condition: Stable Additional Instructions: Need to work with your urologist on catheter changes. This is not something we can accommodate here, we do not have Urology. Follow catheter instructions with urologist. I have spoken with the physician's offset assistant press operator from the urology group, they will be working on getting routine catheter change appointments for you. Prescriptions: No Action atorvastatin 10 mg tablet 10 mg PO DAILY amlodipine 2.5 mg tablet 2.5 mg PO DAILY pantoprazole 40 mg tablet,delayed release (DR/EC) 40 mg PO DAILY diclofenac sodium 1 % gel 2 g topical QID PRN Mounjaro 5 mg/0.5 mL pen injector 5 mg subcut .WEEKLY cefadroxil 500 mg capsule 500 mg PO BID Qty: 10 0RF nystatin 100,000 unit/gram powder 1 applic topical DAILY Qty: 30 1RF Rx Instructions: Gently wash affected area and pat dry, then apply powder to affected area, keep area clean and dry. aspirin 81 mg capsule 81 mg PO DAILY melatonin 5 mg capsule pioglitazone 15 mg tablet 15 mg PO DAILY levothyroxine 100 mcg tablet 100 mcg PO DAILY gabapentin 100 mg capsule 200 mg PO BID paroxetine HCl 40 mg tablet 40 mg PO DAILY Follow Up/Referrals: Ryan Donaldson DO [Referring] - Stand Alone Forms: [employer] Info Instructions
--- NOTE | 2023-10-14 13:23 | ED.NURSE ---
Pt going to OB to have catheter changed. [employer] Process Control Technician arranging staff from other departments to help with catheter change.
[2023-10-14] MEDS: PHENAZOPYRIDINE HCL 200 MG TABLET PO (13:24)
[2023-10-14] MEDS: oxyBUTYnin chloride 5 MG TABLET PO (13:24)
== END 2023-10-14 16:01 | disposition home or self-care (01) ==
PROVIDERS: Emergency Provider Family Medicine; PCP Student in an Organized Health Care Education/Training Program
DX: T83.091A Other mechanical complication of indwelling urethral catheter, initial encounter (principal)
CPT/HCPCS: 99282; 99283; A9270

== ENCOUNTER 2023-11-22 17:04 | Outpatient (REF) | payer OTHER, SELFPAY ==
[2023-11-22 17:58] LABS: Hemoglobin A1C* 5.9 % (0-5.6)
[2023-11-22 18:19] LABS: Chloride* 105 mmol/L (96-114); Potassium* 4.1 mmol/L (3.6-5.1); Sodium* 138 mmol/L (135-149)
[2023-11-22 18:21] LABS: Cholesterol* 97 mg/dL (90-199); Creatinine* 1.3 mg/dL (0.5-1.5); Estimated Glomerular Filt Rate 49 ml/min
[2023-11-22 18:22] LABS: Anion Gap 9 mEq/L (7-15); Blood Urea Nitrogen* 22 mg/dL (7-30); Carbon Dioxide* 24 mmol/L (20-32); Glucose* 174 mg/dL (60-115)
[2023-11-22 18:23] LABS: Calcium* 9.1 mg/dL (8.4-10.6); HDL Cholesterol* 28 mg/dL (>=50); LDL Cholesterol Calculated 28 mg/dL (<100); Triglycerides* 203 mg/dL (40-149)
== END 2023-11-22 17:05 | disposition home or self-care (01) ==
LOC: NPINS 17:04
PROVIDERS: PCP Student in an Organized Health Care Education/Training Program; Visit Provider Student in an Organized Health Care Education/Training Program
DX: E03.9 Hypothyroidism, unspecified (principal); E78.5 Hyperlipidemia, unspecified; E11.9 Type 2 diabetes mellitus without complications; N18.30 Chronic kidney disease, stage 3 unspecified; Z01.818 Encounter for other preprocedural examination
CPT/HCPCS: 80048; 80061; 83036; 84443; 85018

== ENCOUNTER 2024-05-27 23:16 | Emergency (ER) | payer OTHER, SELFPAY ==
--- OUTSIDE RECORDS SUMMARY | 2024-05-27 23:18 | XMS_ITS | CCD ---
Author Name Interface, [id number] lity Address [address] [place] [address] [id number] [facility] Address [address] [place] [id number] Reason for Visit Encounters Medications Problems Social History
--- OUTSIDE RECORDS SUMMARY | 2024-05-27 23:18 | XMS_ITS | Data Portability ---
[facility] Organization [facility] Address [address] [place] [address] Care Team Providers Care Hook Tender Name Role Phone [facility] Referring Provider [facility] Primary Care Provider LIEN LARES Primary Care Provider Assessment Encounter Date Assessment Date Assessment LastModified by Organization Details LastModified Time 09/24/2023 09/24/2023 53 year old female with urinary retention. Not available 09/24/2023 12:35:39 Plan of Treatment Reminders Order Date Submit Date Provider Last Modified By Organization Details Last Modified Time Details Appointments None recorded. Lab None recorded. Referral None recorded. Procedures urodynamic testing, complex (PROC) 2023 024 [email or web address] Not available 17:05:32 Surgeries None recorded. Imaging None recorded. Medication Orders Bactrim DS 800 mg-160 mg tablet 2023 024 [id number], [address] [place], [place], [id number], 12:29:38 Patient TargetsNo targets recorded. Patient Instructions Encounter Date Encounter Id Patient Instructions Last Modified By Organization Details Last Modified Time 09/24/2023 [id number] urodynamic studies: about these tests Not available 09/24/2023 12:29:31 Urinary retention: Unclear etiology. I recommend her Rodriguez remain at this point. We will obtain urodynamic studies to assess for reversible causes or if the transient cause for her retention has resolved. We will discuss after she completes this. Not available 09/24/2023 12:35:29 Reason for Referral None Reported. Results Created Date Observation Date Name Description Value Unit Range Abnormal Flag Note LastModifiedBy Organization Detail LastModifiedTime 09/15/19 24 01/13/2023 CT, abdom en + pelvi s, w/ contr ast No observ ation record ed. [email or web address] Not Available 2023 14:19:58 Result Notes None recorded. Problems Name Problem SNOMED Code Status Onset Date Resolution Date Notes Provider Name and Address Organization Details Recorded Time Acquired absence of cervix and uterus 382753787 Active 2023 Gaurang Meath null, [facility] 12:24:41 Adenomatous polyp of colon 902719047 Active 2023 Gaurang Meath null, [facility] 4 12:24:48 Chronic kidney disease stage 3B 111856632 Active 2023 Gaurang Meath null, [facility] 12:27:40 Anxiety 21799490 Active 2023 Gaurang Meath null, [facility] 12:27:46 Carpal tunnel syndrome 55816745 Active 2023 Gaurang Meath null, [facility] 12:27:55 Hypertensive disorder 56426916 Active 2023 Gaurang Meath null, [facility] 12:28:15 Hypothyroidism 25698053 Active 2023 Gaurang Meath null, [facility] 12:33:52 Depressive disorder 56568412 Active 2023 Gaurang Meath null, [facility] 12:33:57 Obstructive sleep apnea syndrome 06612062 Active 2023 Gaurang Meath null, [facility] 12:34:03 Type 2 diabetes mellitus 85244425 Active 2023 Gaurang Meath null, [facility] 12:34:18 Problem Notes None recorded. Procedures Surgical History Date Name Laterality Status Provider Name and Address Organization Details Recorded Time 09/24/19 24 COMPLEX VISIT completed César Willams MD [address],[facility] [address], [address], [facility] 09/24/2023 12:31:57 09/24/19 24 Past Data Reviewed completed César Willams MD [address] [place] [address],[facility] [address], [place], [address], [facility] 09/24/2023 12:34:21 12/03/19 21 Colonoscopy completed Gaurang [facility] 09/21/2023 12:34:47 Diagnostic colonoscopy completed Not Available Health Note 09/23/2023 22:16:34 Laparoscopic cholecystectomy completed Not Available Health Note 09/23/2023 22:16:34 Total hysterectomy completed Not Available Health Note 09/23/2023 22:16:34 Imaging Results Imaging Date Name Status LastModified by Organiz ation Details LastModified Time 01/13/2023 CT, abdomen + pelvis, w/ contrast completed [email or web address] Information not available 09/15/2023 14:19:58 Procedure Notes None recorded. Medical Equipment None Reported. Allergies Allergen ID Allergen Name Allergen Category Reaction Reaction Severity Criticality Documentation Date Start Date Code Code System Note Provider Name and Address Organization Details Recorded Time 767046 citalopra m medicatio n Not available Not available Not available 09/21/2023 2556 RxNorm Not Available Not Available Not Available 143767 lisinopri l medicatio n Not available Not available Not available 09/21/2023 36598 RxNorm Not Available Not Available Not Available 938156 mirtazapi ne medicatio n Not available Not available Not available 09/21/2023 22561 RxNorm Not Available Not Available Not Available 349241 Zantac medicatio n Not available Not available Not available 09/21/2023 51894 3 RxNorm Not Available Not Available Not Available Medications Name Sig Start Date Stop Date Status Note LastModified by Organization Details LastModified Time women's 50 multivitami n TAKE 1 TABLET BY MOUTH ONCE DAILY. active Not Available Not Available No t Available pioglitazon e 15 mg tablet active Not Available Not Available Not Available fluconazole 100 mg tablet TAKE 1 TABLET BY MOUTH DAILY 09/23 completed Not Available Not Available Not Available doxycycline hyclate 100 mg capsule TAKE 1 CAPSULE BY MOUTH TWICE DAILY 09/23 completed Not Available Not Available Not Available atorvastati n 10 mg tablet 10mg 1/day active Not Available Not Available No t Available Nystop 100,000 unit/gram topical powder active Not Available Not Available Not Available amlodipine 2.5 mg tablet active Not Available Not Available Not Available ciprofloxac in 500 mg tablet 09/23 completed Not Available Not Available Not Available sulfamethox azole 800 mg-trimetho prim 160 mg tablet TAKE 1 TABLET BY MOUTH TWICE DAILY FOR 3 DAYS DIRECTED active Not Available Not Available No t Available aspirin 81 mg tablet,ji yed release Take 1 tablet every day by oral route. active Not Available Not Available No t Available triamcinolo ne acetonide 0.1 % topical cream APPLY TOPICALLY TO THE AFFECTED AREA 3X DAILY active Not Available Not Available No t Available cefadroxil 500 mg capsule TAKE 1 CAPSULE BY MOUTH TWICE DAILY active Not Available Not Available No t Available levothyroxi ne 100 mcg tablet TAKE 1 TABLET BY MOUTH EVERY MORNING ON AN EMPTY STOMACH active Not Available Not Available No t Available simvastatin 5 mg tablet active Not Available Not Available Not Available desoximetas one 0.25 % topical ointment APPLY TOPICALLY TO THE AFFECTED AREA TWICE DAILY NEEDED active Not Available Not Available No t Available cephalexin 500 mg capsule 09/23 completed Not Available Not Available Not Available pantoprazol e 40 mg tablet,ji yed release active Not Available Not Available Not Available losartan 25 mg tablet active Not Available Not Available No t Available omeprazole 20 mg capsule,del ayed release 20mg 1/day active Not Available Not Available No t Available hydrochloro thiazide 25 mg tablet active Not Available Not Available No t Available gabapentin 100 mg capsule TAKE 2 CAPSULES BY MOUTH TWICE DAILY active Not Available Not Available No t Available paroxetine 40 mg tablet 40mg 1/day active Not Available Not Available No t Available oxybutynin chloride 5 mg tablet active Not Available Not Available No t Available aspirin 81mg 1/day 09/23 completed Not Available Not Available Not Available levothyroxi ne 100mcg 1/day 09/23 completed Not Available Not Available Not Available amlodipine 2.5mg 1/day 08/09 /2024 completed Not Available Not Available Not Available multivitami n MULTIVITA MIN 1/day active Not Available Not Available No t Available diclofenac 1 % topical gel APPLY 2 GRAMS TOPICALLY TO THE AFFECTED AREA 4X DAILY IF NEEDED. active Not Available Not Available No t Available Mounjaro 7.5 mg/0.5 mL subcutaneou s pen injector ADMINISTE R 7.5 MG UNDER THE SKIN 1 TIME WEEKLY active Not Available Not Available No t Available Mounjaro 5 mg/0.5 mL subcutaneou s pen injector ADMINISTE R 5 MG UNDER THE SKIN 1 TIME WEEKLY active Not Available Not Available No t Available Mounjaro 10 mg/0.5 mL subcutaneou s pen injector ADMINISTE R 10 MG UNDER THE SKIN 1 TIME WEEKLY active Not Available Not Available No t Available Mounjaro 12.5 mg/0.5 mL subcutaneou s pen injector active Not Available Not Available Not Available Mounjaro 2.5 mg/0.5 mL subcutaneou s pen injector ADMINISTE R 2.5 MG UNDER THE SKIN 1 TIME WEEKLY active Not Available Not Available No t Available Vitals Date Recorded Body height Body weight Body mass index (BMI) Provider Name and Address Organization Details Last Updated DateTime 09/24/2023 152.4 cm 945162.9803 75960 g 90.8 kg/m2 Not Available Health Note 09/24/2023 11:43:23 Social History Question Answer Notes LastModified by Organizat ion Details LastModified Time Tobacco Smoking Status Former Smoker Not Available Health Note 09/23/2023 22:16:34 What Is Your Level Of Alcohol Consumption? Moderate Information not available 09/24/2023 What Is Your Level Of Caffeine Consumption? Occasional [email or web address] Information not available 09/23/2023 How Much Tobacco Do You Chew? None [email or web address] Information not available 09/23/2023 Do You Or Have You Ever Used E-cigarettes Or Vape? Never Used Electronic Cigarettes [email or web address] Information not available 09/23/2023 When Did You Quit Smoking? 11-15yearssinc elastcigarette Information not available 09/24/2023 What Was The Date Of Your Most Recent Tobacco Screening? 09/24/2023 [email or web address] Information not available 09/23/2023 Have You Ever Been Counseled For Unhealthy Alcohol Use? Yes Information not available 09/24/2023 What Is Your Relationship Status? [facility]-[id number] Information not available 09/23/2023 Are You Sexually Active? No [facility]-[id number] Information not available 09/23/2023 Do You Or Have You Ever Used Smokeless Tobacco? Never Used Smokeless Tobacco [email or web address] Information not available 09/23/2023 How Much Tobacco Do You Smoke? No Information not available 09/24/2023 Do You Use Any Illicit Or Recreational Drugs? No [facility]-[id number] Information not available 09/23/2023 Has Tobacco Cessation Counseling Been Provided? No Information not available 09/24/2023 How Many Years Have You Smoked Tobacco? 25 [email or web address] Information not available 09/23/2023 Do You Or Have You Ever Used Any Other Forms Of Tobacco Or Nicotine? No Information not available 09/24/2023 How Many Days In The Past Year Have You Consumed 4 Or More Drinks? 30 [facility]-[id number] Information no t available 09/23/2023 Sex: Unknown Functional Status None recorded. Mental Status None recorded. Family History Relationship Description Onset Age of this Age Resolved Age Notes LastModified by Organization Details LastModified Time Unspecified Relation Family history of cancer of colon [id number] Not available 2023 22:16:33 Unspecified Relation Family history of neoplasm of ovary [id number] Not available 2023 22:16:33 Father Family history of diabetes mellitus [id number] Not available 2023 22:16:33 Father Family history of cardiac disorder [facility] Not available 2023 22:16:33 Father Family history of malignant neoplasm [facility]-[id number] Not available 2023 22:16:33 Paternal Grandfather Family history of cardiac disorder [id number] Not available 2023 22:16:33 Paternal Grandfather Family history of malignant neoplasm [facility]-[id number] Not available 2023 22:16:33 Paternal Grandmother Family history of cardiac disorder [id number] Not available 2023 22:16:33 Medical History Condition Response High Blood Pressure Y Kidney Stones N Depression Y Lung Disease N GERD/Acid Reflux Y Sexually Transmitted Infection N Diabetes Y Bleeding Disorder N Cancer Y High Cholesterol N Heart Disease N Gynecological History Statement/Question Response If Post Menopausal, Age at Menopause 41 Hormone Therapy N Sexually Active? N Obstetrics History GPAL:G 0 P 0 0 0 0 Immunizations Vaccine Type Date Status Note Provider Nam e and Address Organization Details Recorded Time SARS-COV-2 (COVID-19) vaccine, UNSPECIFIED 4 completed Gaurang Meath null, [facility] 10/19/2023 10:48:55 influenza, unspecified formulation 3 completed Gaurang Meath null, [facility] 10/19/2023 10:48:55 zoster live 4 completed Gaurang Meath null, [facility] 10/19/2023 10:48:55 pneumococcal, unspecified formulation 3 completed Not Available Health Note 09/23/2023 22:16:37 Influenza, split virus, quadrivalent, preservative 9 completed Gaurang Meath null, [facility] 10/19/2023 10:48:55 Influenza, split virus, quadrivalent, preservative 6 completed Gaurang Meath null, [facility] 10/19/2023 10:48:55 Influenza, split virus, quadrivalent, preservative 0 completed Gaurang Meath null, [facility] 10/19/2023 10:48:55 zoster recombinant 4 completed Gaurang Meath null, [facility] 10/19/2023 10:48:55 zoster recombinant 2 completed Gaurang Meath null, [facility] 10/19/2023 10:48:55 COVID-19, mRNA, LNP-S, PF, 100 mcg/0.5mL dose or 50 mcg/0.25mL dose 1 completed Gaurang Meath null, [facility] 10/19/2023 10:48:55 COVID-19, mRNA, LNP-S, PF, 100 mcg/0.5mL dose or 50 mcg/0.25mL dose 1 completed Gaurang Meath null, [facility] 10/19/2023 10:48:55 COVID-19, mRNA, LNP-S, PF, 100 mcg/0.5mL dose or 50 mcg/0.25mL dose 2 completed Gaurang Meath null, [facility] 10/19/2023 10:48:55 COVID-19, mRNA, LNP-S, PF, 100 mcg/0.5mL dose or 50 mcg/0.25mL dose 1 completed Gaurang Meath null, [facility] 10/19/2023 10:48:55 Pneumococcal conjugate PCV20, polysaccharide [id number] conjugate, adjuvant, PF 2 completed Gaurang Meath null, [facility] 10/19/2023 10:48:55 COVID-19, mRNA, LNP-S, bivalent, PF, 50 mcg/0.5 mL or 25mcg/0.25 mL dose 2 completed Gaurang Meath null, [facility] 10/19/2023 10:48:55 COVID-19, mRNA, LNP-S, PF, 50 mcg/0.5 mL 4 completed Gaurang Meath null, [facility] 10/19/2023 10:48:55 COVID-19, mRNA, LNP-S, PF, 50 mcg/0.5 mL 3 completed Gaurang Meath null, [facility] 10/19/2023 10:48:55 pneumococcal polysaccharide PPV23 8 completed Gaurang Meath null, [facility] 10/19/2023 10:48:55 influenza, unspecified formulation 6 completed [facility] null[facility] 10/[facility]/2023 10:48:55 Tdap 0 completed Gaurang Meath null, [facility] 10/19/2023 10:48:55 Tdap 0 completed Gaurang Meath null, [facility] 10/19/2023 10:48:55 Novel [id number], all formulations 0 completed Gaurang Meath null, [facility] 10/19/2023 10:48:55 Influenza, split virus, trivalent, preservative 2 completed Gaurang Meath null, [facility] 10/19/2023 10:48:55 Influenza, split virus, trivalent, PF 0 completed Gaurang Meath null, [facility] 10/19/2023 10:48:55 Influenza, split virus, trivalent, PF 1 completed Gaurang Meath null, [facility] 10/19/2023 10:48:55 Hep B, adult 5 completed Gaurang Meath null, [facility] 10/19/2023 10:48:55 Hep B, adult 4 completed Gaurang Meath null, [facility] 10/19/2023 10:48:55 Hep B, adult 4 completed Gaurang Meath null, [facility] 10/19/2023 10:48:55 Influenza, split virus, quadrivalent, PF 7 completed Agurang Meath null, [facility] 10/19/2023 10:48:55 Influenza, split virus, quadrivalent, PF 2 completed Gaurang Meath null, [facility] 10/19/2023 10:48:55 Influenza, split virus, quadrivalent, PF 3 completed Gaurang Meath null, [facility] 10/19/2023 10:48:55 Influenza, split virus, quadrivalent, PF 1 completed Gaurang Meath null, [facility] 10/19/2023 10:48:55 Past Encounters Encounter ID Performer Location Encounter Start Date Encounter Closed Date Diagnosis/Indication Diagnosis SNOMED-CT Code Diagnosis ICD10 Code Diagnosis Note [id number] César Willams MD [facility] [address] [address] 09/24/2023 11:41:48 09/24/2023 13:39:06 Retention of urine 241735202 R33.9 Health Concerns Section Related Observation LastModified by Organization Detai ls LastModified Time None Recorded Concern Status LastModified by Organization Details LastModified Time None Recorded Advance Directives Directive None Recorded Payers Encounter Date Sequence Insurance Name Policy Number Policy Boggs Covered Member ID Boggs Member ID Guarantor Name 09/24/2023 1 [facility] - OPEN ACCESS CHOICE (HMO) Antonina A Clara [id number] Antonina Elizabeth Notes Date Note Type Note Provider Name and Address Organization Details Recorded Time 09/24/2023 text/html This is a 53 yea r old female here for the evaluation and management of urinary retention. Last she noticed worsening issues with urinary incontinence and progressive difficulty emptying.She also noticed a rise in frequency of urinary tract infections.She was then admitted to [facility] and was found to be in urinary retention.She has remained catheter dependent since that time.She has known herniated discs but no other known neurologic conditions.She denies prior pelvic surgery. César Willams MD [address], [place], [address], [facility] 09/24/2023 12:35:49 OBGyn Episode No OBEpisode recorded.
--- OUTSIDE RECORDS SUMMARY | 2024-05-27 23:18 | XMS_ITS ---
Author Name Interface, [id number] Address [address] [address] Organization [facility] Address [address] [place] [address] Care Team Providers Care Editor Newspaper Name Role Phone Madhuri Quiros Unavailable Unavailable Allergies and Adverse Reactions Medication/Group Name Reaction Severity Date Tegaderm Rash 08/25/2021 ranitidine HCl Vomiting, Nausea Histamine H2 Inhibitors Vomiting, Nausea 08/25/2021 citalopram hydrobromide 08/15 Tape 08/25/2021 Citalopram Analogues 022 Plan Date Type Value 08/25/2021 APPOINTMENT OV 30 MIN Reason for Visit OV 30 MIN Encounters Date Name 08/25/2021 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 Morbid obesity (diso rder) Immunizations Date Name Route Dose Instructions Refusal Reason Stat us Covid-19 vaccine (Moderna) Completed Flu vaccine - Adult Comp leted Medications Date Name Route Dose Frequency Instructions Start Date End Date Status Gabapentin Oral a ctive Oxybutynin Oral 0.5 tab daily active Desoximetasone Topical Cream 0.25 % Apply prn active Losartan Oral daily act tristen Ferrous Sulfate Oral daily active 019 Omeprazole Oral Delayed Release Capsule PO daily Every other day 019 active 019 Paroxetine Oral PO 1.0 TABLET (S) daily 019 active 019 Levothyroxine Oral PO 1.0 TABLET (S) daily 019 active 019 Hydrochlorothiazide Oral PO 1.0 TABLET (S) QD 019 active Glipizide Oral PO 1.0 TABLET (S) daily active Simvastatin Oral PO 1.0 TABLET (S) daily active Melatonin Oral PO 1.0 TABLET (S) daily active Aspirin Oral PO 1.0 TABLET (S) daily active Pioglitazone Oral PO 1.0 TABLET (S) QAM active Problems Diagnosis Status Date of Diagnosi s 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
--- OUTSIDE RECORDS SUMMARY | 2024-05-27 23:18 | XMS_ITS | Clinical Summary ---
Author Organization [facility] Address [address] [place] [id number] Care Team Providers Care Lorry Weigher Name Role Phone Sonja Hubbard MD Primary Care Provider [phone] Allergies Active Allergy Reactions Criticality Noted Date Comments Citalopram 04/27/2007 Burning across chest Burning across her chest Homeopathic Products 05/26/2006 Lisinopril Other (See Comments) 01/13/2017 Increase in renal function Bump in renal function studies Mirtazapine Other (See Comments) 03/12/2016 Decreased appetite, apathy Ranitidine Nausea Only 05/20/2006 Nausea only Silver Dermatitis 06/10/2012 Contact dermatitis Medications acetaminophen (TYLENOL) 325 MG tablet Take 2 tablets (650 mg total) by mouth every 6 (six) hours as needed for mild pain or Temp > or equal to 101F (38.3C). 4 Active atorvastatin (LIPITOR) 10 MG tablet Take 1 tablet (10 mg total) by mouth nightly. 4 Active enoxaparin (LOVENOX) 30 MG/0.3ML solution prefilled syringe syringeIndications :Deep Vein Thrombosis Prophylaxis Inject 0.3 mL (30 mg total) under the skin every 12 (twelve) hours Indications: Treatment to Prevent Deep Vein Thrombosis. 4 Active multivitamin w/ minerals (THERA M PLUS) Tab/Cap tablet Take 1 each (1 tablet total) by mouth in the morning. 4 Active ondansetron ODT (ZOFRAN-ODT) 4 MG disintegrating tablet Take 1 tablet (4 mg total) by mouth every 6 (six) hours as needed for nausea or vomiting. 4 Active pantoprazole (PROTONIX) 40 MG EC/DR tablet Take 1 tablet (40 mg total) by mouth in the morning. 4 Active polyethylene glycol (MIRALAX) 17 g packet Take 17 g by mouth in the morning. 4 Active Active Problems Problem Noted Date Diagnosed Date Wound <Subsequent> 01/29/2023 Immunizations Immunization Administration Dates Next Due H1N1 All Forms 02/18/2009 H1N1 Inj 02/18/2009 Hepatitis B 07/19/2014,10/09/2013,07/31/2013 Influenza (IM) Preservative Free 11/04/2010,05/2009 Influenza TIV (IM) 11/17/2011,11/04/2010, 010 Influenza, Quadrivalent 12/13/2021,01/05,11/19/2019,10/24/2018 ,11/27/2017,11/05/2016,11/10/2015 Influenza, Unspecified 11/06/2015,11/15/2014 Moderna SARS-CoV-2 Vaccination 06/19/2020,2020 Pfizer SARS-CoV-2 Vaccination 01/29/2023(Deferre d: Not available) Pneumococcal Conjugate 08/25/2021 Pneumococcal Polysaccharide 08/02/2017 Td 01/01/2000 Tdap 04/10/2019,04/29/2009 Zoster 08/25/2021 Social History Tobacco Use Types Packs/Day Years Used Date Smoking Tobacco: Former Cigarettes 0.5 16 Smokeless Tobacco: Never Tobacco Cessation:Counseling Given: No SDSD Transportation Source Answer Da te Recorded Has lack of transportation k ept you from medical appointments or from getting medications? No 04/22/2023 Has lack of transportation k ept you from meetings, work, or from getting things needed for daily living? 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 Pulse 80 04/23/2023 8:42 AM SUPPLIER QUALITY ENGINEERING MANAGER Temperature 36.4 C (97.5 F) 04/23/2023 8:42 AM SUPPLIER QUALITY ENGINEERING MANAGER Respiratory Rate 18 04/23/2023 8:42 AM SUPPLIER QUALITY ENGINEERING MANAGER Oxygen Saturation 97% 04/23/2023 8:42 AM SUPPLIER QUALITY ENGINEERING MANAGER Inhaled Oxygen Concentration - - Weight 226.8 kg (500 lb) 04/21/2023 3:47 AM SUPPLIER QUALITY ENGINEERING MANAGER Height 152.4 cm (5') 01/28/2023 1:54 PM SUPPLIER QUALITY ENGINEERING MANAGER Body Mass Index 97.65 01/28/2023 1:54 PM SUPPLIER QUALITY ENGINEERING MANAGER Plan of Treatment Health Maintenance Due Date Last Done Comments CT Colonography 1970 Colonoscopy 1970 Colorectal Cancer Screening 1970 FIT-DNA (Cologuard) 1970 FIT 1970 FOBT 1970 HPV/PAP 1970 Sigmoidoscopy 1970 Annual Visit Topic 08/07/1971 MMR Vaccines (1 of 1 - Standard series) 08/07/1971 Hepatitis C Screening 1988 Pap Smear 08/07/1991 Cervical Cancer Screening 2000 HPV/Cotest 2000 HPV 2000 DTaP/Tdap/Td Vaccines (4 - T d or Tdap) 04/10/2029 04/10/2019, 04/29/2009, 01/01/2000 Hepatitis B Vaccines Completed 07/19/2014, 10/09/2013, 07/31/2013 HIB Vaccines Aged Out No longer eligi ble based on patient's age to complete this topic HPV Vaccines Aged Out No longer eligi ble based on patient's age to complete this topic Hepatitis A Vaccines Aged Out No long er eligible based on patient's age to complete this topic IPV Vaccines Aged Out No longer eligi ble based on patient's age to complete this topic Meningococcal Vaccine Aged Out No cristina mark eligible based on patient's age to complete this topic Pneumococcal Vaccine: Pediatrics (0 to 5 years) and At-Risk Patients (6 to 64 Years) Aged Out No longer eligible b ased on patient's age to complete this topic Advance Directives * DNR (Latest Code Status on File) Date Activated Date Inactivated Comments 04/23/2023 10:43 AM * DNR Date Activated Date Inactivated Comments 01/29/2023 5:24 PM 04/23/2023 10:43 AM Question Answer Comments I have discussed this order with the patient or his/her surrogate and have received informed consent. Yes * Full Resuscitation Date Activated Date Inactivated Comments 01/29/2023 11:36 AM 01/29/2023 5:24 PM Question Answer Comments I have discussed this order with the patient or his/her surrogate and have received informed consent. Yes Care Teams Lorry Weigher Relationship Specialty Start Date End Date Sonja Hubbadr MD [address] [place] [address] PCP - General Family Medicine 01/06/23
--- OUTSIDE RECORDS SUMMARY | 2024-05-27 23:18 | XMS_ITS ---
Author Name Interface, [id number] lity Address [address] [place] [address] [address] [address] Organization [facility] Address [address] [facility] [address] [place] [address] Care Team Providers Care Dinking Machine Operator Name Role Phone Bibi Benites Unavailable Unavailable Allergies and Adverse Reactions Medication/Group Name Reaction Severity Date Tegaderm Rash 08/25/2021 ranitidine HCl Vomiting, Nausea Histamine H2 Inhibitors Vomiting, Nausea 08/25/2021 citalopram hydrobromide 08/15 Tape 08/25/2021 Citalopram Analogues 022 Plan Date Type Value 08/25/2021 APPOINTMENT OV 30 MIN 08/04/2021 APPOINTMENT OV 30 MIN 08/04/2021 APPOINTMENT OV 30 MIN 07/31/2021 APPOINTMENT OV 30 MIN 2020 APPOINTMENT RC - 60 RC - 60 RC 07/30/2021 LABORDER CA 125 panel Reason for Visit OV 30 MIN Encounters Date Name 2020 Carcinosarcoma of co rpus uteri (disorder) 2020 Morbid obesity (diso rder) Immunizations Date Name Route Dose Instructions Refusal Reason Stat us Covid-19 vaccine (Moderna) Completed Covid-19 vaccine (Moderna) Completed Covid-19 vaccine (Moderna) Completed Flu vaccine - Adult Comp leted Diagnostic Results Date Type Test Units Lower Limit Upper Limit Result Flag Comments Status Ordered By Specimen Source Lab Address 08/01 [facility] other lab See block stacker d Medications Date Name Route Dose Frequency Instructions Start Date End Date Status Gabapentin Oral a ctive Oxybutynin Oral 0.5 tab daily active Desoximetasone Topical Cream 0.25 % Apply prn active Losartan Oral daily act tristen Ferrous Sulfate Oral daily active Omeprazole Oral Delayed Release Capsule PO daily Every other day 019 active Paroxetine Oral PO 1.0 TABLET (S) daily 019 active Levothyroxine Oral PO 1.0 TABLET (S) daily 019 active Hydrochlorothiazide Oral PO 1.0 TABLET (S) QD 019 active Glipizide Oral PO 1.0 TABLET (S) daily 019 active Simvastatin Oral PO 1.0 TABLET (S) daily 019 active Melatonin Oral PO 1.0 TABLET (S) daily 019 active Aspirin Oral PO 1.0 TABLET (S) daily 019 active Pioglitazone Oral PO 1.0 TABLET (S) QAM 019 active Problems Diagnosis Status Date of Diagnosi s 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 Morbid obesity (disorder) Active Normocytic normochromic anemia (disorder) Active 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 Tinea cruris (disorder) Active Vital Signs Date Type Value 2020 Heart Beat 95.00 2020 Oxygen Saturation 96.00 2020 Pain Scale 4.00 2020 Intravascular Systolic 128 2020 Intravascular Diastolic 70 2020 Body Temperature 98.60 2020 BSA 2.74 2020 BMI 96.09 2020 Height 60.00 2020 Weight 492.00 2020 Respiratory Rate 20.00 08/25/2021 Body Temperature 97.80 08/25/2021 BMI 102.53 08/25/2021 Height 60.00 08/25/2021 Weight 525.00 08/25/2021 BSA 2.81 08/25/2021 Intravascular Systolic 142 08/25/2021 Intravascular Diastolic 74 08/25/2021 Oxygen Saturation 98.00 08/25/2021 Respiratory Rate 20.00 08/25/2021 Heart Beat 83.00 08/25/2021 Pain Scale 4.00
--- OUTSIDE RECORDS SUMMARY | 2024-05-27 23:19 | XMS_ITS | Clinical Summary ---
Author Organization [facility] Address [address] [place] [id number] Care Team Providers Care Mortgage Branch Manager Name Role Phone Sherita Ambrosio MD Primary Care Prov ider Allergies Active Allergy Reactions Criticality Noted Date Comments Citalopram 04/27/2007 Burning across her chest Homeopathic Products 05/26/2006 Lisinopril Other - Describe In Comment Field 01/13/2017 Bump in renal function studies Mirtazapine Other - Describe In Comment Field 03/12/2016 Decreased appetite, apathy Silver Contact Dermatitis 06/10/2012 Ranitidine Nausea Only 05/20/2006 Medications BiPapIndications:OKSANA (obstructive sleep apnea) BIPAP machine for home use at pressure: 27/22 cm/H2O, Heated humidifier x 1, Humidifier chamber x 1, 1 Each 022 Active melatonin 3 mg tablet Take 6 mg by mouth at bedtime if needed for Sleep. Active polyethylene glycoL (MIRALAX) 17 gram/scoop powderIndications:Cons tipation, unspecified constipation type Mix 1 scoop (17 g) in liquid then take by mouth once daily if needed for Constipation. 238 g 05/06/19 24 1:42 PM CDT 024 Active miconazole nitrate powder 2 % powderIndications:Yeas t dermatitis Apply topically to affected area(s) two times daily. Make sure skin fold is clean and dry, then apply to skin folds, rub into skin. Can apply as needed thereafter. 71 g 05/06/19 24 1:42 PM CDT Active acetaminophen (TYLENOL) 325 mg tabletIndications:Pain Take 2 Tablets (650 mg) by mouth every 6 hours if needed for Pain. Max acetaminophen dose: 4000mg in 24 hrs.Maximum dose of acetaminophen is 4000 mg from all sources in 24 hours. 90 Tablet 05/06/19 24 1:42 PM CDT Active amLODIPine (NORVASC) 2.5 mg tabletIndications:Hype rtension, unspecified type Take 1 Tablet (2.5 mg) by mouth once daily. Take 2.5 mg by mouth once daily. 100 Tablet Active atorvastatin (LIPITOR) 10 mg tabletIndications:Morb id obesity with BMI of 70 and over, adult (HC),Hypertriglyceride stephanie without hypercholesterolemia Take 1 Tablet (10 mg) by mouth at bedtime. 100 Tablet Active multivitamin,ther and minerals (multivitamin with minerals) tabletIndications:Gia lity,Displacement of lumbar intervertebral disc without myelopathy Take 1 Tablet by mouth once daily. 100 Tablet Active gabapentin (NEURONTIN) 100 mg capsuleIndications:Ner ve pain Take 2 Capsules (200 mg) by mouth two times daily. SEPARATE FROM ANTACIDS. Follow up with PCP. 400 Capsule Active levothyroxine (SYNTHROID) 100 mcg tabletIndications:Hypo thyroidism, unspecified type Take 1 Tablet (100 mcg) by mouth before breakfast. Best if taken on empty stomach. 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 Follow up with PCP 100 Tablet Active omeprazole 20 mg tabletIndications:Del roesophageal reflux disease, unspecified whether esophagitis present Take 1 Tablet (20 mg) by mouth once daily before a meal. 90 Tablet Active diclofenac topical (VOLTAREN) 1 % gelIndications:Pain Apply 2 g topically to affected area(s) 4 times daily if needed (As needed for pain to bilateral knee). Use dosing card to measure dose. FOR EXTERNAL USE ONLY 50 g Active triamcinolone (ARISTOCORT; KENALOG) 0.1 % creamIndications:Venou s stasis dermatitis Apply topically to affected area(s) three times daily. 453.6 g 5 Active wheelchairIndications: Buttock wound, left, subsequent encounter,Type 2 diabetes mellitus with stage 3b chronic kidney disease, without long-term current use of insulin (HC),Morbid obesity with BMI of 70 and over, adult (HC),Displacement of lumbar intervertebral disc without myelopathy,Stage 3b chronic kidney disease (HC),Primary osteoarthritis of both knees,Peripheral neuropathy due to chemotherapy (HC),Spinal stenosis, lumbar region, without neurogenic claudication Wheelchair: Bariatric (over 250 lbs) with leg rests: (Swing away Length of need: 99/lifetime months Wheelchair seat width: 26, Wheelchair seat depth: 16, Wheelchair floor to seat height: 17 General use cushion Tension adjustable back rest Height adjustable arm rests: full length arm pads Rear anti tippers Pelvic belt Heel loops 1 Each Active tirzepatide (Mounjaro) 15 mg/0.5 mL penIndications:Morbid obesity with BMI of 70 and over, adult (HC),Type 2 diabetes mellitus with stage 3b chronic kidney disease, without long-term current use of insulin (HC) Inject 15 mg subcutaneous once weekly. 2 mL 11 Active aspirin 81 mg cap Take by mouth once daily. Active wheelchairIndications: Peripheral neuropathy due to chemotherapy (HC),Morbid obesity with BMI of 70 and over, adult (HC),Displacement of lumbar intervertebral disc without myelopathy,Spinal stenosis, lumbar region, without neurogenic claudication Wheelchair: Bariatric (over 250 lbs) with leg rests: (Swing away Length of need: 99/lifetime months Wheelchair seat width: 26, Wheelchair seat depth: 16, Wheelchair floor to seat height: 17 General use cushion Tension adjustable back rest Height adjustable arm rests: full length arm pads Rear anti tippers Pelvic belt Heel loops 1 Each 024 2024 Discontin ued(Dupli leia therapy (E-cancel not sent)) Active Problems Problem Noted Date Diagnosed Date Pressure injury of left buttock, stage 2 Purple urine bag syndrome 11/19/2023 Chronic indwelling Kendall catheter 09/13/2023 Overview (09/13/2023): Extensive discussion about necessity for indwelling kendall catheter, patient to see urology. Previously the patient reported that she was having urinary tract infections every 2 weeks, states that since she has had a chronic indwelling urethral catheter she has had only 1 UTI. She states she had prior incontinence and possible urinary retention. Kendall was placed in setting of gluteal wound infection in fall 2022. Debility 04/23/2023 Buttock wound, left, subsequent encounter 2023 Rectal abscess 01/18/2023 Colocutaneous fistula 01/12/2023 Absence of both cervix and uterus, acquired 04/2022 Overview (09/17/2022): 2012, uterine carcinosarcoma. No ongoing pap surveillance indicated. Anemia in stage 3b chronic kidney disease 2021 Adenomatous colon polyp 12/04/2020 Overview (12/04/2020): Colonoscopy 11/2020 5 TA, repeat in 5 years at tertiary GI center given morbid obesity and risk of respiratory compromise with sedation. Type 2 diabetes mellitus wit h stage 3 chronic kidney disease, without long-term current use of insulin 04/09/2017 Anxiety state, unspecified 01/17/2017 Hypertriglyceridemia without hypercholesterolemi a 01/17/2017 Hypothyroidism (acquired) 03/18/2016 OKSANA 03/31/2006 AHI-174 03/16/2016 Stage 3b chronic kidney disease 01/15/2016 Morbid obesity with BMI of 70 and over, adult Primary osteoarthritis of both knees 10/17/2015 Peripheral neuropathy due to chemotherapy 2014 Pain medication agreement 06/29/2013 Overview (12/10/2016): Prescriber: Dr. Cj Mai, [facility] Ryan Donaldson, DO Ok to fill at same amount/dose/frequency in my absence. Controlled substance agreement: 06/01/13 REHABILITATION MEDICINE PHYSICIAN query on 06/13/15 was acceptable. Last UDS on 11/05/2016. 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 on bx done on 02/02/12 Hypertension 01/22/2012 Spinal Stenosis at L1-2 04/29/2009 L1-2 and T12-L1 Disk Herniations 09/24/2006 Carpal tunnel syndrome 07/14/2006 Major depressive disorder, single episode, unspe cified Resolved Problems Problem Noted Date Diagnosed Date Resolved Date Sepsis 01/12/2023 09/13/2023 Wound infection 01/12/2023 09/13/2023 Diabetic nephropathy associa michael with type 2 diabetes mellitus 11/06/2016 04/09/2017 Diabetic nephropathy associa michael with type 2 diabetes mellitus 09/01/2016 11/06/2016 Type 2 diabetes mellitus without complication 08/15/19 16 09/02/2016 Type 2 diabetes mellitus wit h other specified complication 07/19/2014 02/14/2015 Chronic renal insufficiency, stage II (mild) 4 01/15/2016 Type 2 diabetes mellitus not at goal 07/03/2013 08/08/2013 T2DM (type 2 diabetes mellitus) 06/15/2013 07/19/2014 T2DM (type 2 diabetes mellitus) 06/15/2013 04/09/2017 T2DM (type 2 diabetes mellitus) 06/15/2013 11/06/2016 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 03/18/2012 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 3 Overview (03/18/2012): malignant mixed mesodermal tumor, stage 1 ([id number]) Hypothyroidism 01/11/2009 02/19/2012 Contusion of knee 02/27/2008 02/27/2008 Osteoarthritis of knee 02/27/200810/16 Unspecified sleep apnea 05/20/200603/2019 Morbid obesity 05/20/2006 01/15/2016 Encounters Date Type Department Care Team Description 05/24/2024 Travel 05/12/2024 9:30 AM CDT Nurse/Clinic Staff Only [address] [address] Nurse/Clinic Staff Only (Cath Change ) 05/11/2024 Travel 05/11/2024 Telephone [facility] [address] [place] [address] Sherita Ambrosio MD Questions 05/10/2024 Travel 05/04/2024 11:20 AM CDT Ancillary Procedure [facility] [address] [place] [address] 05/04/2024 Orders Only [facility] Scanner 1 scan: (1-Ord) [facility], 05/04/2024 05/04/2024 Travel 04/14/2024 3:00 PM BUILDING CODE INSPECTOR Nurse/Clinic Staff Only [facility] [address] [facility] [place] [address] Nurse/Clinic Staff Only (Kendall catheter exchange) 04/14/2024 Travel 04/11/2024 Telephone [facility] [address] [place] [address] Sherita Ambrosio MD Questions 04/11/2024 Travel 03/24/2024 Telephone [facility] [address] [place] [address] Sherita Ambrosio MD Kendall Catheter 03/10/2024 7:10 AM BUILDING CODE INSPECTOR - 03/10/2024 11:59 PM BUILDING CODE INSPECTOR Hospital Encounter [facility] [address] [place] [address] Purple urine bag syndrome (Primary Dx) 03/10/2024 Travel 03/06/2024 Telephone [facility] [address] [place] [address] Alicia Rolle, RN 03/06/2024 Telephone [facility] [address] [place] [address] Jodi Escoto, Form from Last 3 Months Immunizations Immunization Administration Dates Next Due COVID-19 VACCINE SPIKEVAX (M ODERNA 50MCG/0.5ML) 12YO+ PFS 05/24/2023 COVID-19 vaccine (Moderna 100mcg/0.5mL) PF, MDV 06/19/2020,05/22/2020,05/22/2020 Hepatitis B (Adult) 07/19/2014,10/09/2013,2013 INFLUENZA, IIV3 PF (AGE >= 6 MO) 01/10/2024 Influenza A (H1N1), Inactivated 02/18/2009 Influenza A (H1N1), Inactiva michael (Age >=3 Years) 02/18/2009 Influenza Virus, Unspecified 12/13/2021, 01/05/2021,11/19/2019,2018,11/27/2017,11/05/2016,11/10/2015,0 11/06/2015,11/15/2014 Influenza, IIV3 (Age 6-35 mos) 11/04/2010,2009 Influenza, IIV3 (Age >=3 years) 11/17/2011,11/04,02/18/2009 Influenza, IIV4 12/20/2022,,01/05/2021,2016 Influenza, IIV4 (=>6mos) MDV 11/19/2019, 10/24/2018,11/27/2017,2015 Pneumococcal Conj 20-valent (Prevnar 20) 08/25/2021 Pneumococcal Poly,23-Valent (Pneumovax) 08/02/2017 Pneumococcal conj 7-Valent ( Prevnar 7) 08/25/2021 Td (Age >=7 Years) 01/01/2000 Tdap 04/10/2019,04/29/2009 Zoster (Shingrix-RZV, recombinant) 05/24/2023, Zoster (Zostavax-ZVL, live) 08/25/2021 Family History Medical History Relation Name Comments Diabetes Father Heart Disease Father Hypertension Father Psychiatric illness Father Alcohol/Drug Maternal Uncle Arthritis Mother Asthma Mother Other Other No known family hx of anesthesia rxn, bleeding disorders, or blood clots Cancer Paternal Aunt Cancer Sister 1 Ovarian Hyperlipidemia Sister 2 Diabetes Sister 3 Cancer-breast No Family History Cancer-ovarian No Family History Relation Name Status Comments Brother Alive Father (Age 75) CHF, liver cirrohsis, T2DM Maternal Uncle Mother Alive Other Paternal Aunt Sister 1 Alive Sister 2 Alive Sister 3 Alive Social History Tobacco Use Types Packs/Day Years Used Date Smoking Tobacco: Former Cigarettes Q uit: 01/19/2012 Smokeless Tobacco: Never Tobacco Cessation:Counseling Given: Yes Alcohol Use Standard Drinks/Week Comments No 0 (1 standard drink = 0.6 oz pur e alcohol) PHQ-2 Answer Date Recorded PHQ-2 TOTAL SCORE 4 12/30/2022 Social Connections Answer Date Recorded Do you often feel lonely or isolated from those around you? 0 11/12/2023 Financial Resource Strain Answer Date R ecorded Difficulty of Paying Living Expenses 3 11/12/2023 Difficulty of Paying Living Expenses Not on file 11/12/2023 Food Insecurity Answer Date Recorded Do you worry your food will run out before you are able to buy more? 1 11/12/2023 Transportation Needs Answer Date Record ed Does lack of transportation keep you from medica l appointments? 1 11/12/2023 Does lack of transportation keep you from work, meetings or getting things that you need? 1 11/12/2023 Housing Stability Answer Date Recorded What is your housing situation today? 1 11/12/2023 Interpersonal Safety Answer Date Record ed Are you being hit, kicked, p ushed or yelled at (see row info)? No 03/10/2024 Interpersonal Safety Abuse 12 - 18 Not on file 03/10/2024 Interpersonal Safety Ambulatory Vulnerability No t on file 03/10/2024 Utilities Answer Date Recorded Do you have trouble paying f or utilities (for example, heat, electricity, water, phone)? 1 11/12/2023 Comments No Sex and Gender Information Value Date Recorded Sex Assigned at Not on file Legal Sex Female 5:45 AM BUILDING CODE INSPECTOR Gender Identity Not on file Sexual Orientation Not on file Obstetrics History Para Term AB IAB SAB Ectopic Multiple Livin g Live Births 0 0 0 0 0 0 0 0 0 0 Last Filed Vital Signs Vital Sign Reading Time Taken Comments Blood Pressure 143/62 03/10/2024 7:37 AM BUILDING CODE INSPECTOR Pulse 94 03/10/2024 7:37 AM BUILDING CODE INSPECTOR Temperature 36.7 C (98.1 F) 03/10/2024 7:37 AM BUILDING CODE INSPECTOR Respiratory Rate 18 03/10/2024 7:37 AM BUILDING CODE INSPECTOR Oxygen Saturation 98% 03/10/2024 7:3 7 AM BUILDING CODE INSPECTOR Inhaled Oxygen Concentration - - Weight 191 kg (421 lb) 12/23/2023 8:38 AM BUILDING CODE INSPECTOR pt stated her weight was 445lb Height 152.4 cm (5') 12/23/2023 8:38 AM BUILDING CODE INSPECTOR Body Mass Index 82.22 12/23/2023 8:38 AM BUILDING CODE INSPECTOR Plan of Treatment Upcoming Encounters Date Type Department Care Team (Late st Contact Info) Description 05/29/2024 7:45 AM CDT Office Visit [facility] [address] [place] [address] Sherita Ambrosio MD [address] [place] [address] 06/12/2024 8:15 AM CDT Nurse/Clinic Staff Only [address] [address] 08/17/2024 4:00 PM CDT Office Visit [address] [address] Wilbur Malik MD [address] [place] [address] Health Maintenance Due Date Last Done Comments HIV for age 15-65 1985 BMI (ht and wt on same day) for age 18+ 08/24/2019 08/23/2018, 04/05/2017, 08/31/2016, Additional history exists COVID-19 vaccine series (2023- season) 2023 05/24/2023, 12/12/2022, 12/07/2021, Additional history exists Depression screening for age 12+ 01/01/2024 12/31/2022, 12/31/2022, 02/26/2021, Additional history exists Mammogram for age 45-75 05/04/2025 05/05/19, 12/02/2022, 10/09/2021, Additional history exists Colonoscopy through age 75 12/02/2025 12/02/2020, Lipids for age 45-75 10/02/2027 10/01/2022, 04/10/2019, 01/13/2016, Additional history exists Tetanus booster 04/10/2029 04/10/2019, 04/15, 01/01/2000 Hepatitis B series for Diabetes Completed 07/19/2014, 10/09/2013, 07/31/2013 Tdap Completed 04/10/2019, 04/29/2009 Hepatitis C screening for ag e 18-79 Completed 08/25/2021 Pneumococcal series for age 50+ Completed 08/25/2021, 08/25/2021, 08/02/2017 Zoster (shingles) series for age 50+ Completed 05/24/2023, 08/25/2021, 08/25/2021 Influenza Vaccine Completed 01/10/2024, , 12/13/2021, Additional history exists Procedures Procedure Name Priority Date/Time Associated Diagnosis Comments XR MAMMO BILAT SCREENING Routine 05/04/2024 11:55 AM CDT Visit for screening mammogram SCAN-EYE EXAM 05/04/2024 12:00 AM CDT LIPID PANEL W REFLEX MEASURED LDL Routine 10/01/2022 12:25 PM CDT Morbid obesity with BMI of 70 and over, adult (HC) ANTI HCV Add On 08/25/2021 8:02 AM CDT Need for hepatitis C screening test COLONOSCOPY SCREENING Routine 12/02/2020 7:59 AM CDT Screening for colon cancer from Last 3 Months or Most Recently Relevant to Health Maintenance Results * XR MAMMO BILAT SCREENING (05/04/2024 11:55 AM CDT) Anatomical Region Laterality Modality BREASTS, Breast Left, Breast Right Bilateral Mammography Impressions 05/04/2024 2:18 PM CDT There is no radiographic evidence for malignancy. Recommend annual mammograms. MAMMOGRAM ASSESSMENT: ACR 1 Negative PATIENTS: You will also receive a letter with your examination results in an easy to read format. If you have questions about your results, please contact your referring provider. Narrative 05/04/2024 2:18 PM CDT For Patients: As a result of the Century Cures Act, medical imaging exams and procedure reports are released immediately into your electronic medical record. You may view this report before your referring provider. If you have questions, please contact your health care provider. XR MAMMO BILAT SCREENING [[id number]] CLINICAL HISTORY: This is an asymptomatic 53 y.o. patient. INDICATION FOR EXAM: Mammogram Screening. TECHNIQUE: CC and MLO views were obtained. This study was evaluated with the assistance of Computer-Aided Detection. COMPARISON FILM: Yes 12/02/22 [facility] 10/09/21 [facility] FINDINGS: There are scattered areas of fibroglandular density. There are no dominant masses, suspicious micro calcifications or areas of architectural distortion. Sherita Ambrosio MD MAMMO Fi nal Result * SCAN-EYE EXAM (05/04/2024 12:00 AM CDT) us Scanner OTHER Final Result * LIPID PANEL W REFLEX MEASURED LDL (10/01/2022 12:25 PM CDT) CHOLESTEROL,TOTAL 125 100 - 199 mg/dL 10/02/2022 1:36 AM CDT [facility] Comment: Cholesterol, Total Reference Ranges Desirable <200 mg/dL Borderline 200-239 mg/dL High >=240 mg/dL TRIGLYCERIDES 114 <150 mg/dL 10/02/2022 1:36 AM CDT [facility] HDL CHOLESTEROL 44 >40 mg/dL 3 1:36 AM CDT [facility] NON-HDL CHOLESTEROL 81 <145 mg/dl 10/02/2022 1:36 AM CDT [facility] CHOL/HDL RATIO 2.84 <4.50 10/02/2022 1:36 AM CDT [facility] LDL CHOLESTEROL 58 <=130 mg/dL 10/02/2022 1:36 AM CDT [facility] VLDL CHOLESTEROL 23 <=30 mg/dL 10/02/2022 1:36 AM CDT [facility] PROVIDER ORDERED STATUS RANDOM 10/02/2022 1:36 AM CDT [facility] Blood BLOOD SPECIMEN / Unknown Venipuncture / Unknown 10/01/2022 12:25 PM CDT 10/01/2022 12:26 PM CDT us Ryan Donaldson DO CHEMISTRY Final Result [facility] [address] [place] [address], * ANTI HCV (08/25/2021 8:02 AM CDT) HEPATITIS C ANTIBODY Non-React tristen Non-React tristen 08/25/2021 5:50 PM CDT [facility] Comment:Antibodies to HCV no t detected; does not exclude the possibility of exposure to HCV. Blood BLOOD SPECIMEN / Unknown Butterfly / Unknown 08/25/2021 8:02 AM CDT 08/25/2021 8:05 AM CDT us Sonja Hubbard MD SEND OUTS Final Resul t Performing Organization Address City/[facility]/ZIP Co de Phone Number [facility] [address] [place] [address], from Last 3 Months or Most Recently Relevant to Health Maintenance Insurance ALENA JOHNSON [id number] [employer]ER[employer]S INCLUDE [address] [facility] [place] [id number] ELIZABETH ALENA [id number] JACKI MENDEZ Advance Directives * Full Code (Latest Code Status on File) Date Activated Date Inactivated Comments 12/23/2023 8:48 AM 12/23/2023 8:40 PM Question Answer Comments Code Status Discussion: Unable to Assess Preferences, Provider to review later * DNR Date Activated Date Inactivated Comments 04/23/2023 11:44 AM 05/07/2023 1:50 PM Question Answer Comments Code Status Discussion: Reviewed Preferences * DNR Date Activated Date Inactivated Comments 01/20/2023 11:20 AM 01/29/2023 11:29 AM Question Answer Comments Code Status Discussion: Reviewed Preferences * Full Code Date Activated Date Inactivated Comments 01/18/2023 2:52 PM 01/20/2023 11:20 AM DNR but sherley ves DNR for full code during procedure (discussed with patient) Question Answer Comments Code Status Discussion: Reviewed Preferences * DNR Date Activated Date Inactivated Comments 01/12/2023 4:37 PM 01/18/2023 2:52 PM Question Answer Comments Code Status Discussion: Reviewed Preferences Care Teams Mortgage Branch Manager Relationship Specialty Start Date End Date Sherita [place] [address] PCP - General Family Practice 09/13/23
[2024-05-27 23:21] VITALS: BP 131/76; PULSE 97; RESP 18; TEMP 36.1; O2SAT 99; BMI 78.1
--- NOTE | 2024-05-28 00:26 | ED_ITS ---
HPI - General Adult General Chief complaint: Urogenital Problems, Female Stated complaint: catheter issues Time Seen by Provider: 05/27/24 23:59 Source: patient and family Mode of arrival: ambulatory History of Present Illness HPI narrative: 53-year-old female with chronic indwelling Rodriguez catheter presents to the emergency department for evaluation of poorly functioning catheter. Catheter does not seem to be draining properly and she is leaking urine around it. She does have a history of some catheter issues. Alignment notes her briefly reviewed as we are quite busy right now. Patient states that she has to have a larger caliber balloon due to the fact that there is some anatomical changes associated with her chronic catheter use that she does not tolerate the small balloon. Catheter was placed 05/12, was not having any difficulty until the past 24 hours. Has sensation of irritation and leaking of urine, we do notice continuous leaking of urine around the Rodriguez balloon. Attempts were made to irrigate and checked the integrity of the balloon, leakage of urine was still noted. Bladder scan is quite difficult due to the patient's BMI of nearly 80. Patient denies fevers or symptoms of infection. No abdominal pain. Her male tile fitter was attempting to help clean her up and notice the leakage of urine as well. Apparently patient's catheter changes have been getting increasingly difficult and the primary care clinic has told her that they will need her to have her changes performed at the urology office in the future. Past medical history is really quite extensive. She has super morbid obesity, chronic anemia obstructive sleep apnea, diabetes, chronic kidney disease and history of hypothyroidism and sepsis. Allergies and medications are reviewed, she states that these are accurate listed. Nonsmoker. ROS is notable for the urinary symptoms only, denies gynecological or other generalized complaints times 12 systems. Related Data Home Medications ?Medication ?Instructions ?Recorded ?Confirmed gabapentin 100 mg capsule 200 mg PO BID 01/07/23 05/27/24 levothyroxine 100 mcg tablet 100 mcg PO DAILY 01/07/23 05/27/24 paroxetine HCl 40 mg tablet 40 mg PO DAILY 01/07/23 05/27/24 pioglitazone 15 mg tablet 15 mg PO DAILY 01/07/23 05/27/24 amlodipine 2.5 mg tablet 2.5 mg PO DAILY 08/14/23 05/27/24 atorvastatin 10 mg tablet 10 mg PO DAILY 06/29/24 04/12/25 diclofenac sodium 1 % topical gel 2 g topical QID PRN 08/14/23 10/14/23 pantoprazole 40 mg tablet,delayed 40 mg PO DAILY 08/14/23 10/14/23 release tirzepatide 5 mg/0.5 mL 5 mg subcut .WEEKLY 08/14/23 05/27/24 subcutaneous pen injector (Trudy) aspirin 81 mg capsule 81 mg PO DAILY 10/14/23 05/27/24 melatonin 5 mg capsule mg 10/14/23 Previous Rx's ?Medication ?Instructions ?Recorded cefadroxil 500 mg capsule 500 mg PO BID #10 caps 08/15/23 nystatin 100,000 unit/gram topical 1 applic topical DAILY #30 grams 08/15/23 powder Allergies Allergy/AdvReac Type Severity Reaction Status Date / Time citalopram (From Celexa) Allergy Severe Verified 10/14/23 11:28 lisinopril AdvReac Intermediate Verified 10/14/23 11:28 silver (From Tegaderm AG AdvReac Intermediate Verified 10/14/23 11:28 Mesh) mirtazapine (From Remeron) AdvReac Verified 10/14/23 11:28 ranitidine AdvReac Nausea Verified 10/14/23 11:[address] [facility] Medical History CKD (chronic kidney disease) stage 3, GFR 30-59 ml/min ?N18.30 - Chronic kidney disease, stage 3 unspecified (ICD-10) Fistula involving buttock ?L98.8 - Other specified disorders of the skin and subcutaneous tissue (ICD- 10) Sleep apnea ?G47.30 - Sleep apnea, unspecified (ICD-10) Neutrophilic leukocytosis ?D72.9 - Disorder of white blood cells, unspecified (ICD-10) Mobility impaired ?Z74.09 - Other reduced mobility (ICD-10) Uterine cancer ?C55 - Malignant neoplasm of uterus, part unspecified (ICD-10) OKSANA (obstructive sleep apnea) ?G47.33 - Obstructive sleep apnea (adult) (pediatric) (ICD-10) Diabetes ?E11.9 - Type 2 diabetes mellitus without complications (ICD-10) Morbid obesity with body mass index (BMI) greater than or equal to 50 ?E66.01 - Morbid (severe) obesity due to excess calories (ICD-10) Major depression ?F32.9 - Major depressive disorder, single episode, unspecified (ICD-10) Hypothyroid ?E03.9 - Hypothyroidism, unspecified (ICD-10) HTN (hypertension) ?I10 - Essential (primary) hypertension (ICD-10) Endometrial cancer ?C54.1 - Malignant neoplasm of endometrium (ICD-10) Anxiety ?F41.9 - Anxiety disorder, unspecified (ICD-10) Surgical History S/P RADHA-BSO ?Z90.710 - Acquired absence of both cervix and uterus (ICD-10) ?Z90.722 - Acquired absence of ovaries, bilateral (ICD-10) ?Z90.79 - Acquired absence of other genital organ(s) (ICD-10) History of tonsillectomy ?Z90.89 - Acquired absence of other organs (ICD-10) History of cholecystectomy ?Z90.49 - Acquired absence of other specified parts of digestive tract (ICD- 10) Social History Narrative: Lives with , [id number] and [id number] locally. Uses a motorized scooter for mobility. Takes a few steps and pivot transfers at home. Former smoker. No alcohol use. Not currently working outside the home. Requests DNR/DNI status. What is your current living situation?: I presently have a place to live Problems where you live: no known problems Problems where you live details: None noted In the past 12 months, utilities in danger of being shut off: no In past 12 months, lack of transportation kept you from medical appts, meetings, work, or getting things needed for daily living: no In the past 12 mos, have been you worried that your food would run out before you had money to buy more?: never true In the past 12 mos, the food you bought just didn't last and you didn't have money to buy more?: never true Highest level of school completed/degree received: high school graduate Smoking Status: Never smoker Do you use any of these nicotine containing products: None Second hand tobacco smoke exposure: No How often do you have a drink containing alcohol: never How often do you have six or more drinks on one occasion: Never AUDIT-C Alcohol total score: 0 Non-prescribed substance use: denies use Caffeine: No How often does anyone, including family, friends and others, physically hurt you : never How often does anyone, including family, friends and others, insult or talk down to you: never How often does anyone, including family, friends and others, threaten you with harm: never How often does anyone, including family, friends and others, scream or curse at you: never service: No Exam Const: Vital Signs, click to edit/add: Vital Signs - 24 hr 05/27/24 23:21 Temperature 97 F L Pulse Rate [Pulse Oximeter] 97 Respiratory Rate 18 Blood Pressure [Ri ght Forearm] 131/76 Pulse Oximetry 99 Oxygen Delivery Me thod Room Air Documenting provider has reviewed patient's vital signs: yes Common normals: no apparent distress Other: Moderate historian. Makes good eye contact. Putrid smell from perineum. HENMT: Common normals: normocephalic Head and scalp: normocephalic Face and sinus: normal facial exam Eye: General eye: normal appearance of both eyes Neck & C-Spine: General: normal visual inspection Resp: Common normals: normal respiratory effort (Normal for patient, due to obesity) Effort & inspection: able to speak in complete sentences Cardio: Common normals: regular rate and regular rhythm Rate: regular rate Rhythm: regular rhythm GI: Other: Super morbid obesity. Difficult to palpate organs. : Other: Strong putrid odor from perineum. Very difficult to move the body folds well enough to see their urethral tract but there is no obvious purulent drainage. There is some mucus, catheter does appear to be urethral, leakage of clearish urine is noted around the catheter, catheter is deflated and removed. Extremity: Other: Chronic lymphedema stasis thickening of skin. Difficult to palpate edges of joints but no obvious redness. Psych: Common normals: speech normal Appearance: grossly normal Activity/motor behavior: appropriate eye contact Speech: normal speech Insight: insight good Judgement: judgment good Course Course ED Course: 53-year-old female with malfunctioning Rodriguez catheter. Unfortunately, bladder scan not helpful. Attempts to flush catheter were unsuccessful in helping and function. Will remove catheter, attempt replacement and see if it drains properly. Reevaluation(s) Time of Reevaluation #1: 00:44 Reevaluation #1: Catheter change went well. We did have to switch over to a slightly larger coude catheter onto the leg bag but came in the kit that we can inflate with a larger 30 mL balloon. This is holding well, we are not leaking around the catheter in she is getting good drainage. I examined about 80 mL of straw- colored but fairly clear urine in the Rodriguez bag. She says she is feeling better, has no further complaints or concerns. I let her know that this really is the limits of size of catheter that we can replace I here in our facility in if she continues to have leakage or trouble with this 1, I would recommend that she present to a facility that has urology capabilities. Rationale discussed. She verbalized understanding and agreement. We can manage simple things like flashes and changes of exactly this device but no further advanced urology management beyond that unfortunately. Written instructions provided. Alarm symptoms reviewed that would warrant ED presentation. She verbalizes understanding and agreement. Vital Signs Vital signs: Initial Vital Signs Temperature 97 F L 05/27/24 23:21 Temperature Source Temporal Artery Scan 05/27/24 23:21 Pulse Rate 97 05/27/24 23:21 Respiratory Rate 18 05/27/24 23:21 Blood Pressure 131/76 05/27/24 23:21 Blood Pressure Mean 94 05/27/24 23:21 Blood Pressure Position Sitting 05/27/24 23:21 Pulse Oximetry 99 05/27/24 23:21 Oxygen Delivery Method Room Air 05/27/24 23:21 Vital Signs Temperature 97 F L 05/27/24 23:21 Pulse Rate 97 05/27/24 23:21 Respiratory Rate 18 05/27/24 23:21 Blood Pressure 131/76 05/27/24 23:21 Pulse Oximetry 99 05/27/24 23:21 Oxygen Delivery Method Room Air 05/27/24 23:21 Temperature 97 F L 05/27/24 23:21 Pulse Rate 97 05/27/24 23:21 Respiratory Rate 18 05/27/24 23:21 Blood Pressure 131/76 05/27/24 23:21 Pulse Oximetry 99 05/27/24 23:21 Oxygen Delivery Method Room Air 05/27/24 23:21 Discharge Plan Discharge Clinical Impression: Problem with urinary catheter Patient Disposition: Home w/ Parent or Adult Condition: Improved Instructions: Rodriguez Catheter Placement and Care (ED) Additional Instructions: As discussed, it seems as though the catheter is functioning better now. Unfortunately, these devices do fail sometimes. Continue your typical routine care of the skin and catheter. Please follow-up with urology if you continue to have problems. You should return to the emergency department if you have high fever, persistent difficulties with the catheter. Please note that this is the largest catheter that we carry, if you are having persistent leakage, we would need you to go to a different hospital to have this replaced with supplies that are not stock at our facility. Activity Level: Activity as Tolerated Discharge Diet: Regular Prescriptions: No Action atorvastatin 10 mg tablet 10 mg PO DAILY amlodipine 2.5 mg tablet 2.5 mg PO DAILY pantoprazole 40 mg tablet,delayed release (DR/EC) 40 mg PO DAILY diclofenac sodium 1 % gel 2 g topical QID PRN Mounjaro 5 mg/0.5 mL pen injector 5 mg subcut .WEEKLY cefadroxil 500 mg capsule 500 mg PO BID Qty: 10 0RF nystatin 100,000 unit/gram powder 1 applic topical DAILY Qty: 30 1RF Rx Instructions: Gently wash affected area and pat dry, then apply powder to affected area, keep area clean and dry. aspirin 81 mg capsule 81 mg PO DAILY melatonin 5 mg capsule pioglitazone 15 mg tablet 15 mg PO DAILY levothyroxine 100 mcg tablet 100 mcg PO DAILY gabapentin 100 mg capsule 200 mg PO BID paroxetine HCl 40 mg tablet 40 mg PO DAILY Follow Up/Referrals: Sherita Ambrosio MD [Primary Care Provider] - Stand Alone Forms: Andre Phillipe Info Instructions
--- OUTSIDE RECORDS SUMMARY | 2024-05-28 00:49 | XMS_ITS | Clinical Summary ---
Author Organization [facility] Address [address] [place] [id number] Care Team Providers Care Inclined Railway Operator Name Role Phone Unavailable Primary Care Provider Unavailabl e Source Comments Patient records contain information from all sites at [facility]. For routine questions regarding patient records, call [phone] during business hours, M-F 8:00 AM - 5:00 PM Central Time. Record requests for emergency care only can be directed to [phone] at any time.[facility] Allergies Active Allergy Reactions Criticality Noted Date Comments Citalopram GI intolerance 04/27/2007 Burning across chest Burning across her chest Burning across her chest Lisinopril Other (see comments) 01/13/2017 Increase in renal function Bump in renal function studies Bump in renal function studies Mirtazapine Other (see comments) 03/12/2016 Decreased appetite, apathy Ranitidine Nausea Only 05/20/2006 Nausea only Silver Other (see comments),Dermatitis 06/10/2012 Contact dermatitis Medications acetaminophen (TylenoL) 325 mg tablet Take 650 mg by mouth every 6 (six) hours as needed. 4 Active amLODIPine (Norvasc) 2.5 mg tablet Take 2.5 mg by mouth. 4 Active aspirin 81 mg capsule Take by mouth daily. 4 Active atorvastatin (Lipitor) 10 mg tablet Take 1 tablet by mouth at bedtime. 4 Active diclofenac sodium (Voltaren) 1 % gel Apply 2 g topically 4 (four) times a day as needed. 4 Active gabapentin (Neurontin) 100 mg capsule Take 200 mg by mouth. 4 Active glipiZIDE (GlucotroL) 5 mg tablet 9 Active levothyroxine 100 mcg tablet Take 100 mcg by mouth. 4 Active melatonin 3 mg tablet 9 Active miconazole 2 % powder Apply topically. 4 Active multivitamin,tx -minerals (Super Thera Juan Pablo M) tablet Take 1 tablet by mouth daily. 4 Active omeprazole (PriLOSEC OTC) [address] tablet Take 20 mg by mouth. 4 Active oxyBUTYnin (Ditropan) 5 mg tablet Active PARoxetine (PaxiL) 40 mg tablet 9 Active pioglitazone (Actos) 15 mg tablet 9 Active tirzepatide (Mounjaro) 15 mg/0.5 mL pen injector injection Inject 15 mg under the skin over 168 hr. 4 Active Social History Tobacco Use Types Packs/Day Years Used Date Smoking Tobacco: Former Cigarettes Smokeless Tobacco: Never Tobacco Cessation:Counseling Given: Not Answered [facility] Utilities Answer Date Recorded In the past 12 months has th [employer], or water Infectious threatened to shut off services in your home? No 01/24/2024 Exercise Vital Sign Answer Date Recorde d On average, how many days pe r week do you engage in moderate to strenuous exercise (like a brisk walk)? 0 days 01/24/2024 On average, how many minutes do you engage in exercise at this level? 10 min 01/24/2024 Hunger Vital Sign Answer Date Recorded Within the past 12 months, y ou worried that your food would run out before you got the money to buy more. Never true 01/24/20 24 Within the past 12 months, t he food you bought just didn't last and you didn't have money to get more. Never true 01/24/2024 PRAPARE - Transportation Answer Date Re corded In the past 12 months, has l ack of transportation kept you from medical appointments or from getting medications? No 10/2023 In the past 12 months, has l ack of transportation kept you from meetings, work, or from getting things needed for daily living? No 01/24/2024 Nutrition Answer Date Recorded On average, how many serving s of fruits and vegetables do you eat per day (serving size is equal to 1 cup or approximately the size of a tennis ball)? 0-2 01/24/2024 Dental Answer Date Recorded Dental: Regular Dentist Yes 01/24/20 Employment Answer Date Recorded Employment status Permanently disabled Housing Stability Answer Date Recorded What is your living situation today? I have a [facility] place to live 01/24/2024 Comments Unknown Sex and Gender Information Value Date Recorded Sex Assigned at Female 01/24/2024 4:36 PM STUDENT SERVICES ADVISOR Legal Sex Female 10:47 AM STUDENT SERVICES ADVISOR Gender Identity Female 01/24/2024 4:36 PM STUDENT SERVICES ADVISOR Sexual Orientation Straight 01/24/2024 4: 36 PM STUDENT SERVICES ADVISOR Plan of Treatment Health Maintenance Due Date Last Done Comments CT Colonography 1970 Cervical/Vaginal Cancer Screening 1970 Cologuard 1970 FIT 1970 HIV Screening 1970 Hepatitis C Screening 1970 Pneumococcal vaccine (50+ years) (2 of 2 - PCV) 08/25/2022 08/25/2021, 08/02/2017 Thyroid Stimulating Hormone (TSH) test for thyroid function 10/02/2023 10/01/2022, 11/21/2021, 10/09/2021, Additional history exists COVID-19 Vaccine ( season) 2023 05/24/2023, 06/19/2020, 05/22/2020 Mammogram 12/03/2023 12/02/2022, 11/15, 10/09/2021, Additional history exists Depression Screening (Annual PHQ-2) 02/16/2024 Fasting Glucose for Diabetes Screening 05/23/2026 05/24/2023, 04/25/2023, 04/24/2023, Additional history exists Lipid (Cholesterol) Screening 10/02/2027 10/01/2022, 04/10/2019 DTaP,Tdap,and Td Vaccines (3 - Td or Tdap) 04/10/2029 04/10/2019, 04/29/2009 Colonoscopy 12/02/2030 12/02/2020 Colorectal Cancer Screening 12/02/2030 Hepatitis B Vaccines Completed 07/19/2014, 10/09/2013, 07/31/2013 Zoster Vaccines Completed 05/24/2023, 08/25/2021 Influenza Vaccine Completed 01/10/2024, , 12/13/2021, Additional history exists IPV Vaccines Aged Out No longer eligi ble based on patient's age to [place] [id number] [facility] ALENA JOHNSON [id number]
--- OUTSIDE RECORDS SUMMARY | 2024-05-28 00:49 | XMS_ITS | CCD ---
Author Name Interface, [id number] lity Address [address] [place] [address] [address] [place] [address] [facility] Address [address] [facility] [address] [place] [address] Reason for Visit OV 30 MIN Encounters Date Name 08/25/2021 Morbid obesity (diso rder) Medications Date Name Route Dose Frequency Instructions Start Date End Date Status Gabapentin Oral a ctive Desoximetasone Topical Cream 0.25 % Apply prn active Losartan Oral daily act tristen Oxybutynin Oral 0.5 tab daily active Ferrous Sulfate Oral daily active 019 Omeprazole Oral Delayed Release Capsule PO daily Every other day 019 active 019 Glipizide Oral PO 1.0 TABLET (S) daily 019 active 019 Paroxetine Oral PO 1.0 TABLET (S) daily 019 active 019 Melatonin Oral PO 1.0 TABLET (S) daily 019 active 019 Hydrochlorothiazide Oral PO 1.0 TABLET (S) QD 019 active 019 Aspirin Oral PO 1.0 TABLET (S) daily 019 active 019 Levothyroxine Oral PO 1.0 TABLET (S) daily 019 active 019 Simvastatin Oral PO 1.0 TABLET (S) daily 019 active 019 Pioglitazone Oral PO 1.0 TABLET (S) QAM 019 active Problems Diagnosis Status Date of Diagnosi s 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
--- OUTSIDE RECORDS SUMMARY | 2024-05-28 00:49 | XMS_ITS ---
Author Name Interface, [id number] lity Address [address] [facility] [address] [address] Organization [facility] Address [address] [facility] [address] [place] [address] Care Team Providers Care Solution Designer Name Role Phone Madhuri Quiros Unavailable Unavailable [...]
--- OUTSIDE RECORDS SUMMARY | 2024-05-28 00:49 | XMS_ITS ---
Author Name Interface, [id number] lity Address [address] [facility] [address] [address] Organization [facility] Address [address] [facility] [address] [place] [address] Care Team Providers Care Jacquard Twine Polisher Operator Name Role Phone Madhuri Quiros Unavailable Unavailable [...]
--- OUTSIDE RECORDS SUMMARY | 2024-05-28 00:50 | XMS_ITS | CCD ---
Author Name Interface, [id number] lity Address [address] [place] [address] [address] [place] [address] [facility] Address [address] [facility] [address] [place] [address] Reason for Visit OV 30 MIN Encounters [...]
--- OUTSIDE RECORDS SUMMARY | 2024-05-28 00:50 | XMS_ITS | Clinical Summary ---
Author Organization [facility] Address [address] [place] [id number] Care Team Providers Care Flight Test Engineer Name Role Phone Sherita Ambrosio MD Primary [...] 06/29/2013 Overview (12/10/2016): Prescriber: Dr. Cj Mai, [facility] Ryan Donaldson, DO Ok to fill at same amount/dose/frequency in my absence. Controlled substance agreement: 06/01/13 PSYCHOMETRIC EXAMINER query on 06/13/15 was acceptable. Last UDS [...] (03/18/2012): malignant mixed mesodermal tumor, stage 1 ([id number]) Hypothyroidism 01/11/2009 02/19/2012 Contusion of knee 02/27/2008 02/27/2008 Osteoarthritis of knee 02/27/200810/16 Unspecified sleep apnea 05/20/200603/2019 Morbid obesity 05/20/2006 01/15/2016 Encounters Date Type Department Care Team Description 05/24/2024 Travel 05/12/2024 9:30 AM CDT Nurse/Clinic Staff Only [address] [phone] Nurse/Clinic Staff Only (Cath Change ) 05/11/2024 Travel 05/11/2024 Telephone [facility] [address] [place] [address] Sherita Ambrosio MD Questions 05/10/2024 Travel 05/04/2024 11:20 AM CDT Ancillary Procedure [facility] [address] [place] [address] 05/04/2024 Orders Only [facility] Scanner 1 scan: (1-Ord) [facility], 05/04/2024 05/04/2024 Travel 04/14/2024 3:00 PM DRY MOLDER Nurse/Clinic Staff Only [facility] [address] [facility] [place] [address] Nurse/Clinic Staff Only (Kendall catheter exchange) 04/14/2024 Travel 04/11/2024 Telephone [facility] [address] [place] [address] Sherita Ambrosio MD Questions 04/11/2024 Travel 03/24/2024 Telephone [facility] [address] [place] [address] Sherita Ambrosio MD Kendall Catheter 03/10/2024 7:10 AM DRY MOLDER - 03/10/2024 11:59 PM DRY MOLDER Hospital Encounter [facility] [address] [place] [address] Purple urine bag syndrome (Primary Dx) 03/10/2024 Travel 03/06/2024 Telephone [facility] [address] [place] [address] Alicia Rolle, RN 03/06/2024 Telephone [facility] [address] [place] [address] Jodi Escoto, Form from Last 3 Months [...] on file Legal Sex Female 5:45 AM DRY MOLDER Gender Identity Not on file Sexual Orientation Not on file Obstetrics History Para Term AB IAB SAB Ectopic Multiple Livin g Live Births 0 0 0 0 0 0 0 0 0 0 Last Filed Vital Signs Vital Sign Reading Time Taken Comments Blood Pressure 143/62 03/10/2024 7:37 AM DRY MOLDER Pulse 94 03/10/2024 7:37 AM DRY MOLDER Temperature 36.7 C (98.1 F) 03/10/2024 7:37 AM DRY MOLDER Respiratory Rate 18 03/10/2024 7:37 AM DRY MOLDER Oxygen Saturation 98% 03/10/2024 7:3 7 AM DRY MOLDER Inhaled Oxygen Concentration - - Weight 191 kg (421 lb) 12/23/2023 8:38 AM DRY MOLDER pt stated her weight was 445lb Height 152.4 cm (5') 12/23/2023 8:38 AM DRY MOLDER Body Mass Index 82.22 12/23/2023 8:38 AM DRY MOLDER Plan of Treatment Upcoming Encounters Date Type Department Care Team (Late st Contact Info) Description 05/29/2024 7:45 AM CDT Office Visit [facility] [address] [place] [address] Sherita Ambrosio MD [address] [place] [address] 06/12/2024 8:15 AM CDT Nurse/Clinic Staff Only [address] [phone] 08/17/2024 4:00 PM CDT Office Visit [address] [phone] Wilbur Malik MD [address] [place] [address] Health Maintenance Due Date Last Done Comments [...] health care provider. XR MAMMO BILAT SCREENING [[id number]] CLINICAL HISTORY: This is an asymptomatic 53 y.o. patient. INDICATION FOR EXAM: Mammogram Screening. TECHNIQUE: CC and MLO views were obtained. This study was evaluated with the assistance of Computer-Aided Detection. COMPARISON FILM: Yes 12/02/22 [facility] 10/09/21 [facility] FINDINGS: There are scattered areas of fibroglandular density. There are no dominant masses, suspicious micro calcifications or areas of architectural distortion. Sherita Ambrosio MD MAMMO Fi nal Result * SCAN-EYE EXAM (05/04/2024 12:00 AM CDT) us Scanner OTHER Final Result * LIPID PANEL W REFLEX MEASURED LDL (10/01/2022 12:25 PM CDT) CHOLESTEROL,TOTAL 125 100 - 199 mg/dL 10/02/2022 1:36 AM CDT [facility] Comment: Cholesterol, Total Reference Ranges Desirable <200 mg/dL Borderline 200-239 mg/dL High >=240 mg/dL TRIGLYCERIDES 114 <150 mg/dL 10/02/2022 1:36 AM CDT [facility] HDL CHOLESTEROL 44 >40 mg/dL 3 1:36 AM CDT [facility] NON-HDL CHOLESTEROL 81 <145 mg/dl 10/02/2022 1:36 AM CDT [facility] CHOL/HDL RATIO 2.84 <4.50 10/02/2022 1:36 AM CDT [facility] LDL CHOLESTEROL 58 <=130 mg/dL 10/02/2022 1:36 AM CDT [facility] VLDL CHOLESTEROL 23 <=30 mg/dL 10/02/2022 1:36 AM CDT [facility] PROVIDER ORDERED STATUS RANDOM 10/02/2022 1:36 AM CDT [facility] Blood BLOOD SPECIMEN / Unknown Venipuncture / Unknown 10/01/2022 12:25 PM CDT 10/01/2022 12:26 PM CDT us Ryan Donaldson DO CHEMISTRY Final Result [facility] [address] [place] [address], * ANTI HCV (08/25/2021 8:02 AM CDT) HEPATITIS C ANTIBODY Non-React tristen Non-React tristen 08/25/2021 5:50 PM CDT [facility] Comment:Antibodies to HCV no t detected; does not exclude the possibility of exposure to HCV. Blood BLOOD SPECIMEN / Unknown Butterfly / Unknown 08/25/2021 8:02 AM CDT 08/25/2021 8:05 AM CDT us Sonja Hubbard MD SEND OUTS Final Resul t Performing Organization Address City/[facility]/ZIP Co de Phone Number [facility] [address] [place] [address], from Last 3 Months or Most Recently Relevant to Health Maintenance Insurance ALENA JOHNSON [id number] [employer] [facility] [place] [address] ELIZABETH ALENA [id number] JACKI MENDEZ Advance Directives * Full Code [...] Code Status Discussion: Reviewed Preferences Care Teams Flight Test Engineer Relationship Specialty Start Date End Date Sherita [place] [address] PCP - General Family Practice 09/13/23
--- OUTSIDE RECORDS SUMMARY | 2024-05-28 00:50 | XMS_ITS ---
Author Name Interface, [id number] lity Address [address] [place] [address] [address] [address] Organization [facility] Address [address] [facility] [address] [place] [address] Care Team Providers Care Architectural Associate Name Role Phone Bibi Benites Unavailable Unavailable [...] Ordered By Specimen Source Lab Address 08/01 [facility] other lab See leaf fat scraper d Medications Date Name Route Dose Frequency [...]
--- OUTSIDE RECORDS SUMMARY | 2024-05-28 00:50 | XMS_ITS ---
Author Name Interface, [id number] lity Address [address] [place] [address] [address] [address] Organization [facility] Address [address] [facility] [address] [place] [address] Care Team Providers Care Space Physicist Name Role Phone Bibi Benites Unavailable Unavailable [...] Ordered By Specimen Source Lab Address 08/01 [facility] [place] See frit mixer d Medications Date Name Route Dose Frequency [...]
== END 2024-05-28 00:52 | disposition home or self-care (01) ==
LOC: ED 05-28 00:47
PROVIDERS: Emergency Provider Family Medicine; PCP Student in an Organized Health Care Education/Training Program
DX: T83.098A Other mechanical complication of other urinary catheter, initial encounter (principal)
CPT/HCPCS: 51702; 99283

== ENCOUNTER 2024-09-13 10:26 | Outpatient (CLI) | payer OTHER, SELFPAY ==
[2024-09-13 11:23] LABS: Hematocrit 38.2 % (33.0-51.0); Hemoglobin* 11.5 gm/dL (12.0-16.0); Immature Granulocytes Abs Auto 0.02 K/uL (0.00-0.30); Immature Granulocytes Pct Auto 0.2 %; Mean Corpuscular HGB Conc 30 gm/dL (32-36); Mean Corpuscular Hemoglobin 27 pg (26-34); Mean Corpuscular Volume 90 fL (80-100); RDW Coefficient of Variation % 16.0 % (11.5-15.5); Red Blood Count 4.26 m/uL (4.00-5.20); White Blood Count* 9.24 K/uL (4.50-11.00)
[2024-09-13 11:26] LABS: Lymphocytes Absolute Auto 1.20 K/uL (0.90-2.90)
[2024-09-13 11:27] LABS: Slide Review Reflex No
[2024-09-13 11:47] LABS: Albumin* 3.6 g/dL (3.3-5.0); Chloride* 105 mmol/L (96-114); Potassium* 4.0 mmol/L (3.6-5.1); Sodium* 141 mmol/L (135-149)
[2024-09-13 11:50] LABS: Alanine Aminotransferase* 34 U/L (4-35); Alkaline Phosphatase* 113 U/L (40-150); Anion Gap 10 mEq/L (7-15); Aspartate Amino Transferase* 27 U/L (12-35); Bilirubin Direct* 0.3 mg/dL (0.0-0.5); Bilirubin Total* 0.7 mg/dL (0.1-1.5); Blood Urea Nitrogen* 19 mg/dL (7-30); Calcium* 8.8 mg/dL (8.4-10.6); Carbon Dioxide* 26 mmol/L (20-32); Creatinine* 1.3 mg/dL (0.5-1.5); Estimated Glomerular Filt Rate 49 ml/min; Glucose* 176 mg/dL (60-115); Total Protein* 7.6 g/dL (6.0-8.3)
[2024-09-13 11:58] LABS: D Dimer Quantitative* 4.89 ug/ml (0.00-0.50)
[2024-09-13 11:59] LABS: NT Pro B Type NatriureticPept* 684 pg/mL (See Note)
[2024-09-13 12:58] LABS: TSH With Reflex to FT4* 3.030 uIU/mL (0.270-4.200)
== END 2024-09-13 10:27 | disposition home or self-care (01) ==
PROVIDERS: PCP Student in an Organized Health Care Education/Training Program; Visit Provider Student in an Organized Health Care Education/Training Program
DX: R06.02 Shortness of breath (principal); R79.89 Other specified abnormal findings of blood chemistry
CPT/HCPCS: 36415; 80048; 80076; 83036; 83880; 84443; 85025; 85379; 86304

== ENCOUNTER 2024-09-15 14:16 | Outpatient (CLI) | payer OTHER, SELFPAY ==
--- NOTE | 2024-09-15 14:30 | CRLHL7_ITS ---
For Patients: As a result of the Century Cures Act, medical imaging exams and procedure reports are released immediately into your electronic medical record. You may view this report before your referring provider. If you have questions, please contact your health care provider. Indication: Elevated D-dimer, SOB Technique: CTA chest, pulmonary embolism protocol, utilizing 95 mL Isovue 370 IV contrast Comparison: CT chest on March 05, 2016 Findings: No thyroid nodules. No thoracic lymphadenopathy. Mild cardiomegaly. Moderate size pericardial effusion. No CT evidence of right heart strain. Coronary artery calcifications. The thoracic aorta and pulmonary artery are normal in caliber. Evaluation of the pulmonary arteries is nondiagnostic secondary to contrast bolus timing with poor opacification of the pulmonary arteries. No appreciable central or lobar pulmonary embolism. Trace right pleural effusion and small to moderate volume left pleural effusion with near-complete atelectasis of the left lower lobe. Minimal atelectatic changes in the right lung base. No suspicious pulmonary nodules or masses. The airways are clear. The imaged upper abdomen is without acute abnormality. There are few varicosities in the subcutaneous fat of the thorax bilaterally. No acute fracture or malalignment. Mild degenerative changes of the spine. Impression: 1. Evaluation of the pulmonary arteries is nondiagnostic secondary to contrast bolus timing with poor opacification of the pulmonary arteries. No appreciable central or lobar pulmonary embolism. If there is continued clinical concern for pulmonary embolism, recommend repeating the study. 2. Mild cardiomegaly with moderate pericardial effusion. 3. Trace right pleural effusion and small to moderate volume left pleural effusion with near-complete atelectasis of the left lower lobe. Minimal atelectatic changes in the right lung base. Please note that all CT scans at this facility use dose modulation, iterative reconstruction, and/or weight-based dosing when appropriate to reduce radiation dose to as low as reasonably achievable. Dictated by Trenton Rivero MD @ 09/15/2024 3:25:20 PM (Electronically Signed)
== END 2024-09-15 14:17 | disposition home or self-care (01) ==
PROVIDERS: PCP Student in an Organized Health Care Education/Training Program; Visit Provider Student in an Organized Health Care Education/Training Program
DX: R79.89 Other specified abnormal findings of blood chemistry (principal); I51.7 Cardiomegaly; J90 Pleural effusion, not elsewhere classified; R06.09 Other forms of dyspnea
CPT/HCPCS: 71275; Q9967

== ENCOUNTER 2024-09-20 13:27 | Outpatient (CLI) | payer OTHER, SELFPAY ==
[2024-09-20] MEDS: PERFLUTREN LIPID MICROSPHERES 2 ML VIAL IVP (15:51)
== END 2024-09-20 13:28 | disposition home or self-care (01) ==
LOC: RAD 13:27
PROVIDERS: PCP Student in an Organized Health Care Education/Training Program; Visit Provider Student in an Organized Health Care Education/Training Program
DX: R06.09 Other forms of dyspnea (principal); J90 Pleural effusion, not elsewhere classified; I31.39 Other pericardial effusion (noninflammatory); R79.89 Other specified abnormal findings of blood chemistry
CPT/HCPCS: 93308; 93321; 93325